=== PATIENT | male | born 1950 | race Two or more races ===

== ENCOUNTER → 2020-06-23 14:22 | Outpatient (BNVA) | payer OTHER, SELFPAY | PROVIDERS: PCP Internal Medicine; Visit Provider Internal Medicine | DX: Z13.89 Encounter for screening for other disorder (principal) | CPT/HCPCS: Q3014 ==

== ENCOUNTER → 2020-07-05 15:33 | Outpatient (BNVA) | payer MEDICARE, SELFPAY | PROVIDERS: PCP Internal Medicine; Visit Provider Internal Medicine | DX: Z13.89 Encounter for screening for other disorder (principal) | CPT/HCPCS: Q3014 ==

== ENCOUNTER 2020-07-28 13:45 | Outpatient (REF) | payer MEDICARE, SELFPAY ==
--- NOTE | ~2020-07-28 | XR_ITS ---
EXAMINATION: XR CHEST CLINICAL INFORMATION: Cough. COMPARISON: Chest 03/19/2018 TECHNIQUE: 2 views of the chest were obtained. FINDINGS: The lungs are hypoexpanded with patchy opacities in both lower lobes with prominent reticular interstitial changes likely chronic changes since 2018. Superimposed underlying infiltrate in both lower lungs cannot be excluded. The upper lungs are clear. Heart size and pulmonary vascularity is normal. No gross bony abnormality seen. XR/XR chest 2V IMPRESSION: Patchy bilateral lower lobe opacities likely infiltrate superimposed on chronic reticular interstitial changes. The lungs are hypoexpanded.
== END 2020-07-28 13:46 | disposition home or self-care (01) ==
LOC: HO.XRAY 13:45
PROVIDERS: PCP Internal Medicine; Visit Provider Internal Medicine
DX: B94.8 Sequelae of other specified infectious and parasitic diseases (principal); R05 Cough; J44.9 Chronic obstructive pulmonary disease, unspecified; J30.9 Allergic rhinitis, unspecified; Z79.899 Other long term (current) drug therapy
CPT/HCPCS: 71046; 99212

== ENCOUNTER 2020-09-28 14:10 | Outpatient (REF) | payer MEDICARE, SELFPAY ==
--- NOTE | ~2020-09-28 | XR_ITS ---
EXAMINATION: XR CHEST CLINICAL INFORMATION: Sequela of infection COMPARISON: 07/28/2020 and 03/19/2018 TECHNIQUE: PA and lateral FINDINGS: Compared to study of 07/28/2020 there has been some improvement in bilateral lower lobe and lingula disease. No new confluent region of disease is appreciated. No pneumothorax or pleural effusion. There is still noted to be diffuse interstitial scarring compared to study of 03/19/2018. Heart normal size. No evidence of pulmonary edema. XR/XR chest 2V IMPRESSION: Improvement since study of 07/28/2020 but with bilateral regions of scarring being present.
== END 2020-09-28 14:11 | disposition home or self-care (01) ==
LOC: HO.XRAY 14:10
PROVIDERS: PCP Internal Medicine; Visit Provider Internal Medicine
DX: R05 Cough (principal); B94.8 Sequelae of other specified infectious and parasitic diseases; J30.9 Allergic rhinitis, unspecified; J44.9 Chronic obstructive pulmonary disease, unspecified; Z88.6 Allergy status to analgesic agent; Z88.5 Allergy status to narcotic agent; Z88.0 Allergy status to penicillin; Z79.899 Other long term (current) drug therapy
CPT/HCPCS: 71046; 99212

== ENCOUNTER → 2020-10-27 13:57 | Outpatient (BNVA) | payer MEDICARE, SELFPAY | PROVIDERS: PCP Internal Medicine; Visit Provider Internal Medicine | DX: B94.8 Sequelae of other specified infectious and parasitic diseases (principal); R05 Cough; J30.9 Allergic rhinitis, unspecified; J44.9 Chronic obstructive pulmonary disease, unspecified | CPT/HCPCS: 99212 ==

== ENCOUNTER 2021-01-18 10:45 | Outpatient (REF) | payer MEDICARE, SELFPAY ==
[2021-01-18 12:50] LABS: PSA,Total (Free>4and<10) 5.11 ng/mL (0.00-4.00)
[2021-01-22 14:55] LABS: Free Prostate Spec Ag 0.6 ng/mL; Percent Free Prostate Spec Ag 14 % (calc) (>25); Prostate Specific Ag Total 4.3 ng/mL (< OR = 4.0)
== END 2021-01-18 10:46 | disposition home or self-care (01) ==
LOC: HO.LAB 10:45
PROVIDERS: PCP Internal Medicine; Visit Provider Urology
DX: Z12.5 Encounter for screening for malignant neoplasm of prostate (principal); N13.8 Other obstructive and reflux uropathy; N40.1 Benign prostatic hyperplasia with lower urinary tract symptoms
CPT/HCPCS: 36415; 84153; 84154

== ENCOUNTER → 2021-02-23 13:27 | Outpatient (BNVA) | payer MEDICARE, SELFPAY | PROVIDERS: PCP Internal Medicine; Visit Provider Internal Medicine | DX: J30.9 Allergic rhinitis, unspecified (principal); J44.9 Chronic obstructive pulmonary disease, unspecified; R05.9 Cough, unspecified | CPT/HCPCS: 99212 ==

== ENCOUNTER 2021-04-05 16:39 | Outpatient (REF) | payer MEDICARE, SELFPAY ==
[2021-04-05 18:34] LABS: Influenza A PCR NEGATIVE (Negative); Influenza B PCR NEGATIVE (Negative); Resp Syncy Virus RNA Qual PCR NEGATIVE (Negative); SARS COV2 PCR INHOUSE NEGATIVE (Negative)
== END 2021-04-05 16:40 | disposition home or self-care (01) ==
LOC: HO.LNP 16:39
PROVIDERS: Visit Provider Physician Assistant Medical
DX: Z20.822 Contact with and (suspected) exposure to COVID-19 (principal); J06.9 Acute upper respiratory infection, unspecified
CPT/HCPCS: 0241U

== ENCOUNTER 2021-04-28 10:55 | Outpatient (REF) | payer MEDICARE, SELFPAY ==
--- NOTE | ~2021-04-28 | XR_ITS ---
EXAMINATION: XR CHEST CLINICAL INFORMATION: COPD COMPARISON: Previous chest x-ray September 2020 TECHNIQUE: 2 views of the chest were obtained. FINDINGS: The cardiac and mediastinal contours are stable. The lungs do not appear hyperinflated and the lung volumes may be low. There are residual increased linear markings seen, right greater than left, probably representing postinfectious or inflammatory scarring. This appears improved compared to most recent exam September 2020. There is no pleural effusion or pneumothorax. There is slight elevation of the right hemidiaphragm. Bony structures are unremarkable. XR/XR chest 2V IMPRESSION: Continued interval improvement in increased linear markings probably representing postinfectious or inflammatory scarring, right greater than left. The lungs do not appear hyperinflated and may be low.
== END 2021-04-28 10:56 | disposition home or self-care (01) ==
LOC: HO.XRAY 10:55
PROVIDERS: PCP Internal Medicine; Visit Provider Internal Medicine
DX: J44.1 Chronic obstructive pulmonary disease with (acute) exacerbation (principal); B94.8 Sequelae of other specified infectious and parasitic diseases; J30.9 Allergic rhinitis, unspecified; Z79.899 Other long term (current) drug therapy
CPT/HCPCS: 71046; 99212

== ENCOUNTER → 2021-06-07 14:48 | Outpatient (BNVA) | payer MEDICARE, SELFPAY | PROVIDERS: PCP Internal Medicine; Visit Provider Internal Medicine | DX: J44.9 Chronic obstructive pulmonary disease, unspecified (principal); J30.9 Allergic rhinitis, unspecified; R05.9 Cough, unspecified; B94.8 Sequelae of other specified infectious and parasitic diseases | CPT/HCPCS: 99212 ==

== ENCOUNTER → 2021-08-09 11:12 | Outpatient (BNVA) | payer MEDICARE, SELFPAY | PROVIDERS: PCP Internal Medicine; Visit Provider Internal Medicine | DX: J44.1 Chronic obstructive pulmonary disease with (acute) exacerbation (principal); J30.9 Allergic rhinitis, unspecified; B94.8 Sequelae of other specified infectious and parasitic diseases | CPT/HCPCS: 99212 ==

== ENCOUNTER → 2021-11-07 14:22 | Outpatient (BNVA) | payer OTHER, SELFPAY | PROVIDERS: PCP Internal Medicine; Visit Provider Internal Medicine | DX: J44.9 Chronic obstructive pulmonary disease, unspecified (principal); J30.9 Allergic rhinitis, unspecified; B94.8 Sequelae of other specified infectious and parasitic diseases | CPT/HCPCS: 99212 ==

== ENCOUNTER → 2022-01-12 11:15 | Outpatient (BNVA) | payer OTHER, SELFPAY | PROVIDERS: PCP Physician Assistant Medical; Visit Provider Internal Medicine | DX: J44.1 Chronic obstructive pulmonary disease with (acute) exacerbation (principal); J30.9 Allergic rhinitis, unspecified; Z79.899 Other long term (current) drug therapy | CPT/HCPCS: 99212 ==

== ENCOUNTER → 2022-03-09 09:37 | Outpatient (BNVA) | payer OTHER, SELFPAY | PROVIDERS: PCP Physician Assistant Medical; Visit Provider Internal Medicine | DX: J44.1 Chronic obstructive pulmonary disease with (acute) exacerbation (principal); J30.9 Allergic rhinitis, unspecified | CPT/HCPCS: 99212 ==

== ENCOUNTER → 2022-05-10 12:57 | Outpatient (BNVA) | payer OTHER, SELFPAY | PROVIDERS: PCP Physician Assistant Medical; Visit Provider Internal Medicine | DX: J44.9 Chronic obstructive pulmonary disease, unspecified (principal); J30.9 Allergic rhinitis, unspecified | CPT/HCPCS: 99212 ==

== ENCOUNTER → 2022-08-09 13:58 | Outpatient (BNVA) | payer OTHER, SELFPAY | PROVIDERS: PCP Physician Assistant Medical; Visit Provider Internal Medicine | DX: J44.1 Chronic obstructive pulmonary disease with (acute) exacerbation (principal); R05.9 Cough, unspecified; J30.9 Allergic rhinitis, unspecified; C61 Malignant neoplasm of prostate; Z79.52 Long term (current) use of systemic steroids | CPT/HCPCS: 99212 ==

== ENCOUNTER 2022-08-27 13:51 | Emergency (ER) | payer OTHER, SELFPAY ==
--- NOTE | ~2022-08-27 | XR_ITS ---
EXAMINATION: XR CHEST CLINICAL INFORMATION: Cough and shortness of breath COMPARISON: Chest x-ray 04/28/2021 TECHNIQUE: 2 views of the chest were obtained. FINDINGS: The lungs are well-expanded and clear of acute pneumonic process. There is persistent soft tissue density right midlung unchanged since 21 question scarring. The heart size and progress clarities normal. No gross bony abnormality seen. XR/XR chest 2V IMPRESSION: 1. No acute cardiopulmonary process seen. 2. Right midlung soft tissue density is unchanged since 2020 question scarring. .
[2022-08-27 13:55] VITALS: BP 144/90; PULSE 101; RESP 18; TEMP 36.8; O2SAT 97; BMI 25.4
--- NOTE | 2022-08-27 13:56 | ED.CHESTPAIN ---
HPI - Chest Pain General Chief Complaint: Chest Pain <MIKEL Cleveland - Last Filed: 08/27/22 14:01> Stated Complaint: chest pains/ 4x days coughing <MIKEL Cleveland - Last Filed: 08/27/22 14:01> Time Seen by Provider: 08/27/22 18:33 <MIKEL Cleveland - Last Filed: 08/27/22 14:01> Source: patient, family, RN notes reviewed and old records reviewed <Isaak Durant - Last Filed: 08/27/22 18:48> Mode of arrival: ambulatory <Isaak Durant - Last Filed: 08/27/22 18:48> Limitations: no limitations <Isaak Durant - Last Filed: 08/27/22 18:48> History of Present Illness HPI narrative: 71-year-old male with past medical history significant for COPD, prostate cancer presents for evaluation of cough. Patient reports has been coughing for last 4 days with associated left-sided chest pain Denies any fevers, chills or shortness of breath. Patient reports his cough isn't productive of green sputum He has been using his albuterol machine at home without any improvement in his symptoms. Patient reports that he is currently undergoing radiation therapy for his prostate as he was recently diagnosed with stage I prostate cancer Of note, the patient's was also seen in the ER for similar symptoms <Isaak Durant - Last Filed: 08/27/22 18:48> Related Data Home Medications: Home Medications Medication Instructions Recorded Confirmed atorvastatin 20 mg tablet 20 mg PO DAILY 02/23/21 01/12/22 omeprazole 20 mg capsule,delayed 20 mg PO DAILY 02/23/21 01/12/22 release diltiazem HCl 120 mg 120 mg PO DAILY 08/09/21 01/12/22 capsule,extended release 24 hr prednisone 5 mg tablet 5 mg PO DAILY recurrent 05/10/22 excarbation of copd Previous Rx's Medication Instructions Recorded albuterol sulfate 2.5 mg/3 mL 2.5 mg (3 mL) inhalation Q4-6H PRN 04/28/21 (0.083 %) solution for nebulization shortness of breath or wheezing #180 mL fluticasone 250 mcg-salmeterol 50 1 inh inhalation BID 30 days #60 ea 01/12/22 mcg/dose blistr powdr for inhalation (Wixela Inhub) azithromycin 250 mg tablet 250 mg PO 3XW 30 days #13 tabs 03/09/22 albuterol sulfate 90 mcg/actuation 2 puff inhalation Q4-6H PRN 05/10/22 aerosol inhaler shortness of breath or wheezing 30 days #8.5 grams montelukast 10 mg tablet 10 mg PO BEDTIME #90 tabs 07/20/22 benzonatate 100 mg capsule 100 mg PO TID PRN cough #20 caps 08/27/22 levocetirizine 5 mg tablet 5 mg PO DAILY #14 tabs 08/27/22 <MIKEL Cleveland - Last Filed: 08/27/22 14:01> Allergies/Adverse Reactions: Allergies Allergy/AdvReac Type Severity Reaction Status Date / Time acetaminophen [Percocet] Allergy Unknown Unknown Verified 08/09/22 14:16 codeine [Tylenol-Codeine] Allergy Unknown Unknown Verified 08/09/22 14:16 oxycodone [Percocet] Allergy Unknown Unknown Verified 08/09/22 14:16 penicillin V Allergy Unknown Unknown Verified 08/09/22 14:16 <MIKEL Cleveland - Last Filed: 08/27/22 14:01> Review of Systems Constitutional: Constitutional: Reports as per HPI, Denies chills, Denies fatigue, Denies fever(s) and Denies headache(s) <Isaak Durant - Last Filed: 08/27/22 18:48> ENT: Denies headache(s) <Isaak Durant - Last Filed: 08/27/22 18:48> Cardiovascular: Cardiovascular: Denies dyspnea <Isaak Durant - Last Filed: 08/27/22 18:48> Respiratory: Respiratory: Reports cough, Reports excessive phlegm production, Reports pain with cough and Denies dyspnea <Isaak Durant - Last Filed: 08/27/22 18:48> Gastrointestinal: Gastrointestinal: Denies abdominal pain, Denies constipation and Denies vomiting <Isaak Durant - Last Filed: 08/27/22 18:48> Genitourinary: Genitourinary: Denies difficulty urinating and Denies dysuria <Isaak Durant - Last Filed: 08/27/22 18:48> Neurologic: Denies headache(s) and Denies focal weakness <Isaak Durant - Last Filed: 08/27/22 18:48> Endocrine: Endocrine: Denies fatigue <Isaak Durant - Last Filed: 08/27/22 18:48> PMFSH Past Medical History Medical History: Medical History Allergic rhinitis COPD (chronic obstructive pulmonary disease) COPD exacerbation Cough COVID-19 [id number] condition <MIKEL Cleveland - Last Filed: 08/27/22 14:01> Social History Social History: Social History Patient Tobacco Use Status: Never used Tobacco <MIKEL Cleveland - Last Filed: 08/27/22 14:01> Physical Exam Vital Signs: Vital Signs: Last Vital Signs Temp 98.2 F 08/27/22 13:55 Pulse 101 H 08/27/22 13:55 Resp 18 08/27/22 13:55 BP 144/90 H 08/27/22 13:55 Pulse Ox 97 08/27/22 13:55 O2 Del Method Room Air 08/27/22 13:55 BMI result Body Mass Index 25.4 <MIKEL Cleveland - Last Filed: 08/27/22 14:01> Vital Signs: Last Vital Signs Temp 98.2 F 08/27/22 13:55 Pulse 101 H 08/27/22 13:55 Resp 18 08/27/22 13:55 BP 144/90 H 08/27/22 13:55 Pulse Ox 97 08/27/22 13:55 O2 Del Method Room Air 08/27/22 13:55 BMI result Body Mass Index 25.4 <Isaak Durant - Last Filed: 08/27/22 18:48> Const: General: healthy appearing, comfortable, no acute distress, alert and awake <Isaak Durant - Last Filed: 08/27/22 18:48> Nutritional Appearance: well nourished <Isaak Durant - Last Filed: 08/27/22 18:48> Orientation/consciousness: patient oriented x3 < Last Filed: 08/27/22 18:48> HEENT: Head: Yes normocephalic and Yes atraumatic < Last Filed: 08/27/22 18:48> Throat: Yes posterior oropharynx normal < Last Filed: 08/27/22 18:48> Eyes: Eyelids: Yes eyelids normal < Last Filed: 08/27/22 18:48> Conjunctivae: conjunctivae normal < Last Filed: 08/27/22 18:48> Sclerae: sclerae normal < Last Filed: 08/27/22 18:48> Corneas: corneas normal < Last Filed: 08/27/22 18:48> Pupils: Equal, round and reactive pupils present < Last Filed: 08/27/22 18:48> EOM: EOMs intact bilaterally < Last Filed: 08/27/22 18:48> Neck: Neck: Yes full ROM < Last Filed: 08/27/22 18:48> Resp: Effort & Inspection: normal respiratory effort, able to speak in complete sentences, no audible wheezes and not labored < Last Filed: 08/27/22 18:48> Auscultation: clear to auscultation bilaterally < Last Filed: 08/27/22 18:48> Cardio: Other: No lower extremity edema < Last Filed: 08/27/22 18:48> Rate: regular rate < Last Filed: 08/27/22 18:48> Rhythm: regular rhythm < Last Filed: 08/27/22 18:48> GI: Inspection: No distended < Last Filed: 08/27/22 18:48> Palpation (GI): Soft to palpation, not firm, nontender, no guarding and not rigid < Last Filed: 08/27/22 18:48> Auscultation: normoactive bowel sounds <Isaak Durant - Last Filed: 08/27/22 18:48> Skin: General skin exam: no rashes or lesions noted and elasticity normal <Isaak Durant - Last Filed: 08/27/22 18:48> Neuro: General: patient oriented x3 <Isaak Durant - Last Filed: 08/27/22 18:48> Cranial nerves: Yes CN's II-XII intact bilaterally, Yes Equal, round and reactive pupils present and Yes Bilaterally intact EOM present <Isaak Durant - Last Filed: 08/27/22 18:48> Cognition (Neuro): normal cognition <Isaak Durant - Last Filed: 08/27/22 18:48> Course Course Course Narrative: RME-14PM - 71yoM Stage 1 prostate cancer on radiation no METs per patient, COPD, allergic rhinitis, history of COVID who is presenting to the ER with complaints of a cough that has been present since Sunday then midsternal chest pain that started on Sunday after him coughing so much on Sunday. Reports that he started with sputum production today with a thick green malodorous sputum. has similar symptoms and is also being seen today as well. Daughter at bedside. Patient is [place]-speaking dollar is translating. He denies recent travel, fevers, dyspnea on exertion orthopnea, leg swelling, nausea/vomiting, abdominal pain, calf tenderness, bloody sputum production or any other symptoms complaints or concerns at this time. Plan: Labs, UA, chest x-ray, EKG, COVID/RSV/flu swab were at this time. Patient to be sent back to the waiting room to be evaluated in the ED. <MIKEL Cleveland - Last Filed: 08/27/22 14:01> Medical Decision Making Medical Decision Making MDM Narrative: 71-year-old male with past medical history significant for COPD presents for evaluation of cough. Patient's EKG is a sinus rhythm rate of 88 beats per minute. His labs are without significant abnormality. Chest x-ray shows possible right mid lung scarring but otherwise no focal infiltrates. The patient's symptoms are most likely related to seasonal allergies versus viral syndrome. As his is here with similar symptoms. His vital signs are stable. We will treat his cough with benzonatate Perles and allergy medication. The patient has no wheezing on exam, doubt this related to his COPD history <Isaak Durant - Last Filed: 08/27/22 18:48> Differential Diagnosis Cough Allergies Bronchitis Pneumonia COPD exacerbation <Isaak Durant - Last Filed: 08/27/22 18:48> Lab Data MDM Lab Attestation statement: I reviewed the patient's lab results. <Isaak Durant - Last Filed: 08/27/22 18:48> Result Diagrams: 08/27/22 15:48 08/27/22 15:48 <MIKEL Cleveland - Last Filed: 08/27/22 14:01> Labs: Lab Results 08/27/22 08/27/22 08/27/22 Range/Units 15:48 15:48 15:48 WBC 10.5 (4.8-10.8) X10*3/uL RBC 4.96 (4.60-5.80) X10*6/uL Hgb 14.6 (14.0-18.0) g/dl Hct 44.5 (42.0-52.0) % MCV 89.7 (80.0-98.0) fL MCH 29.4 (27.0-33.0) pg MCHC 32.8 (31.0-36.0) g/dl RDW 11.9 (11.0-16.0) % Plt Count 276 (160-400) X10*3/uL MPV 8.8 L (9.4-12.4) fL Immature Gran % (Auto) 0.3 (0.0-0.4) % Neut % (Auto) 77.7 H (45-73) % Lymph % (Auto) 10.3 L (20-40) % Divide % (Auto) 9.5 (2-11) % Eos % (Auto) 1.7 (0-4) % Baso % (Auto) 0.5 (0-2) % Lymph # (Auto) 1.1 L (1.2-4.9) X10*3/uL Divide # (Auto) 1.0 (0.1-1.2) X10*3/uL Eos # (Auto) 0.2 (0.0-0.4) X10*3/uL Baso # (Auto) 0.1 (0.0-0.2) X10*3/uL Abs Immat Gran (auto) 0.03 (0.00-0.03) X10*3/uL Absolute Neuts (auto) 8.2 (2.0-8.3) x10*3/uL Absolute Nucleated RBC 0.000 (0.0-0.012) X10*3/uL Nucleated RBC % (auto) 0.0 (0.0-0.2) /100WBC PT 12.8 (10.0-13.1) SEC INR 1.1 (0.9-1.1) Sodium 141 (135-145) mmol/L Potassium 4.4 (3.3-5.1) mmol/L Chloride 107 (96-108) mmol/L Carbon Dioxide 26 (22-29) mmol/L Anion Gap 12 (12-20) BUN 11 (9-16) mg/dL Creatinine 1.04 (0.5-1.4) mg/dL Estim Creat Clear Calc 47.4 Estimated GFR > 60 Random Glucose 91 (60-115) mg/dL Calcium 8.8 (8.4-10.2) mg/dL Magnesium 1.8 (1.6-2.6) mg/dL Total Bilirubin 1.0 (0.0-1.0) mg/dL AST 13 (5-37) U/L ALT 11 (0-40) U/L Alkaline Phosphatase 80 (39-117) U/L Troponin I High Sens (<3.5-35.0) ng/L Total Protein 6.7 (6.5-8.0) g/dL Albumin 4.0 (3.5-5.0) g/dL Influenza Type A (PCR) (Negative) Influenza Type B (PCR) (Negative) RSV RNA Qual (PCR) (Negative) SARS-CoV-2 RNA (RT-PCR) (Negative) 08/27/22 08/27/22 Range/Units 15:48 15:48 WBC (4.8-10.8) X10*3/uL RBC (4.60-5.80) X10*6/uL Hgb (14.0-18.0) g/dl Hct (42.0-52.0) % MCV (80.0-98.0) fL MCH (27.0-33.0) pg MCHC (31.0-36.0) g/dl RDW (11.0-16.0) % Plt Count (160-400) X10*3/uL MPV (9.4-12.4) fL Immature Gran % (Auto) (0.0-0.4) % Neut % (Auto) (45-73) % Lymph % (Auto) (20-40) % Divide % (Auto) (2-11) % Eos % (Auto) (0-4) % Baso % (Auto) (0-2) % Lymph # (Auto) (1.2-4.9) X10*3/uL Divide # (Auto) (0.1-1.2) X10*3/uL Eos # (Auto) (0.0-0.4) X10*3/uL Baso # (Auto) (0.0-0.2) X10*3/uL Abs Immat Gran (auto) (0.00-0.03) X10*3/uL Absolute Neuts (auto) (2.0-8.3) x10*3/uL Absolute Nucleated RBC (0.0-0.012) X10*3/uL Nucleated RBC % (auto) (0.0-0.2) /100WBC PT (10.0-13.1) SEC INR (0.9-1.1) Sodium (135-145) mmol/L Potassium (3.3-5.1) mmol/L Chloride (96-108) mmol/L Carbon Dioxide (22-29) mmol/L Anion Gap (12-20) BUN (9-16) mg/dL Creatinine (0.5-1.4) mg/dL Estim Creat Clear Calc Estimated GFR Random Glucose (60-115) mg/dL Calcium (8.4-10.2) mg/dL Magnesium (1.6-2.6) mg/dL Total Bilirubin (0.0-1.0) mg/dL AST (5-37) U/L ALT (0-40) U/L Alkaline Phosphatase (39-117) U/L Troponin I High Sens 2.7 (<3.5-35.0) ng/L Total Protein (6.5-8.0) g/dL Albumin (3.5-5.0) g/dL Influenza Type A (PCR) NEGATIVE (Negative) Influenza Type B (PCR) NEGATIVE (Negative) RSV RNA Qual (PCR) NEGATIVE (Negative) SARS-CoV-2 RNA (RT-PCR) NEGATIVE (Negative) <MIKEL Cleveland - Last Filed: 08/27/22 14:01> Lab Results 08/27/22 08/27/22 08/27/22 Range/Units 15:48 15:48 15:48 WBC 10.5 (4.8-10.8) X10*3/uL RBC 4.96 (4.60-5.80) X10*6/uL Hgb 14.6 (14.0-18.0) g/dl Hct 44.5 (42.0-52.0) % MCV 89.7 (80.0-98.0) fL MCH 29.4 (27.0-33.0) pg MCHC 32.8 (31.0-36.0) g/dl RDW 11.9 (11.0-16.0) % Plt Count 276 (160-400) X10*3/uL MPV 8.8 L (9.4-12.4) fL Immature Gran % (Auto) 0.3 (0.0-0.4) % Neut % (Auto) 77.7 H (45-73) % Lymph % (Auto) 10.3 L (20-40) % Divide % (Auto) 9.5 (2-11) % Eos % (Auto) 1.7 (0-4) % Baso % (Auto) 0.5 (0-2) % Lymph # (Auto) 1.1 L (1.2-4.9) X10*3/uL Divide # (Auto) 1.0 (0.1-1.2) X10*3/uL Eos # (Auto) 0.2 (0.0-0.4) X10*3/uL Baso # (Auto) 0.1 (0.0-0.2) X10*3/uL Abs Immat Gran (auto) 0.03 (0.00-0.03) X10*3/uL Absolute Neuts (auto) 8.2 (2.0-8.3) x10*3/uL Absolute Nucleated RBC 0.000 (0.0-0.012) X10*3/uL Nucleated RBC % (auto) 0.0 (0.0-0.2) /100WBC PT 12.8 (10.0-13.1) SEC INR 1.1 (0.9-1.1) Sodium 141 (135-145) mmol/L Potassium 4.4 (3.3-5.1) mmol/L Chloride 107 (96-108) mmol/L Carbon Dioxide 26 (22-29) mmol/L Anion Gap 12 (12-20) BUN 11 (9-16) mg/dL Creatinine 1.04 (0.5-1.4) mg/dL Estim Creat Clear Calc 47.4 Estimated GFR > 60 Random Glucose 91 (60-115) mg/dL Calcium 8.8 (8.4-10.2) mg/dL Magnesium 1.8 (1.6-2.6) mg/dL Total Bilirubin 1.0 (0.0-1.0) mg/dL AST 13 (5-37) U/L ALT 11 (0-40) U/L Alkaline Phosphatase 80 (39-117) U/L Troponin I High Sens (<3.5-35.0) ng/L Total Protein 6.7 (6.5-8.0) g/dL Albumin 4.0 (3.5-5.0) g/dL Influenza Type A (PCR) (Negative) Influenza Type B (PCR) (Negative) RSV RNA Qual (PCR) (Negative) SARS-CoV-2 RNA (RT-PCR) (Negative) 08/27/22 08/27/22 Range/Units 15:48 15:48 WBC (4.8-10.8) X10*3/uL RBC (4.60-5.80) X10*6/uL Hgb (14.0-18.0) g/dl Hct (42.0-52.0) % MCV (80.0-98.0) fL MCH (27.0-33.0) pg MCHC (31.0-36.0) g/dl RDW (11.0-16.0) % Plt Count (160-400) X10*3/uL MPV (9.4-12.4) fL Immature Gran % (Auto) (0.0-0.4) % Neut % (Auto) (45-73) % Lymph % (Auto) (20-40) % Divide % (Auto) (2-11) % Eos % (Auto) (0-4) % Baso % (Auto) (0-2) % Lymph # (Auto) (1.2-4.9) X10*3/uL Divide # (Auto) (0.1-1.2) X10*3/uL Eos # (Auto) (0.0-0.4) X10*3/uL Baso # (Auto) (0.0-0.2) X10*3/uL Abs Immat Gran (auto) (0.00-0.03) X10*3/uL Absolute Neuts (auto) (2.0-8.3) x10*3/uL Absolute Nucleated RBC (0.0-0.012) X10*3/uL Nucleated RBC % (auto) (0.0-0.2) /100WBC PT (10.0-13.1) SEC INR (0.9-1.1) Sodium (135-145) mmol/L Potassium (3.3-5.1) mmol/L Chloride (96-108) mmol/L Carbon Dioxide (22-29) mmol/L Anion Gap (12-20) BUN (9-16) mg/dL Creatinine (0.5-1.4) mg/dL Estim Creat Clear Calc Estimated GFR Random Glucose (60-115) mg/dL Calcium (8.4-10.2) mg/dL Magnesium (1.6-2.6) mg/dL Total Bilirubin (0.0-1.0) mg/dL AST (5-37) U/L ALT (0-40) U/L Alkaline Phosphatase (39-117) U/L Troponin I High Sens 2.7 (<3.5-35.0) ng/L Total Protein (6.5-8.0) g/dL Albumin (3.5-5.0) g/dL Influenza Type A (PCR) NEGATIVE (Negative) Influenza Type B (PCR) NEGATIVE (Negative) RSV RNA Qual (PCR) NEGATIVE (Negative) SARS-CoV-2 RNA (RT-PCR) NEGATIVE (Negative) <Isaak Durant - Last Filed: 08/27/22 18:48> Independent Interpretation I performed an independent interpretation of an: EKG (Sinus rhythm rate of 88 beats per minute.) and Plain X-Ray (No infiltrates) <Isaak Durant - Last Filed: 08/27/22 18:48> Discharge Plan Discharge Clinical Impression: Cough <MIKEL Cleveland - Last Filed: 08/27/22 14:01> Patient Disposition: Home, Self-Care <MIKEL Cleveland Last Filed: 08/27/22 14:01> Instructions: Acute Cough (ED) <MIKEL Cleveland Last Filed: 08/27/22 14:01> Additional Instructions: Keep taking your medications as prescribed. Follow-up with your primary doctor Take benzonatate Perles as needed for coughing Use a daily allergy medication for the next week <MIKEL Cleveland Last Filed: 08/27/22 14:01> Prescriptions: New benzonatate 100 mg capsule 100 mg PO TID PRN (Reason: cough) Qty: 20 0RF levocetirizine 5 mg tablet 5 mg PO DAILY Qty: 14 0RF No Action montelukast 10 mg tablet 10 mg PO BEDTIME Qty: 90 0RF omeprazole 20 mg capsule,delayed release(DR/EC) 20 mg PO DAILY atorvastatin 20 mg tablet 20 mg PO DAILY diltiazem HCl 120 mg capsule,extended release 24hr 120 mg PO DAILY albuterol sulfate 2.5 mg /3 mL (0.083 %) solution for nebulization 2.5 mg inhalation Q4-6H PRN (Reason: shortness of breath or wheezing) Qty: 180 2RF prednisone 5 mg tablet 5 mg PO DAILY albuterol sulfate 90 mcg/actuation HFA aerosol inhaler 2 puff inhalation Q4-6H PRN (Reason: shortness of breath or wheezing) 30 Days Qty: 8.5 3RF fluticasone propion-salmeterol [Wixela Inhub] 250-50 mcg/dose blister with device 1 inh inhalation BID 30 Days Qty: 60 3RF azithromycin 250 mg tablet 250 mg PO 3XW 30 Days Qty: 13 3RF <MIKEL Cleveland - Last Filed: 08/27/22 14:01>
--- NOTE | 2022-08-27 14:01 | ECG_ITS ---
Test Reason : Cough shortness of breath Blood Pressure : / mmHG Vent. Rate : 088 BPM Atrial Rate : 088 BPM P-R Int : 146 ms QRS Dur : 084 ms QT Int : 354 ms P-R-T Axes : 045 004 000 degrees QTc Int : 428 ms Normal sinus rhythm Normal ECG No previous ECGs available Referred By: Sondra Hansen Electronically Signed By:TERESSA CHUNG
[2022-08-27 15:53] LABS: MANUAL DIFF FLAG NO
[2022-08-27 15:55] LABS: Basophils Absolute Auto 0.1 X10*3/uL (0.0-0.2); Basophils Percent Auto 0.5 % (0-2); Eosinophils Absolute Auto 0.2 X10*3/uL (0.0-0.4); Eosinophils Percent Auto 1.7 % (0-4); Hematocrit 44.5 % (42.0-52.0); Hemoglobin 14.6 g/dl (14.0-18.0); Imm Gran Abs Auto 0.03 X10*3/uL (0.00-0.03); Imm Gran Pct Auto 0.3 % (0.0-0.4); Lymphocytes Absolute Auto 1.1 X10*3/uL (1.2-4.9); Lymphocytes Percent Auto 10.3 % (20-40); Mean Corpuscular HGB Conc 32.8 g/dl (31.0-36.0); Mean Corpuscular Hemoglobin 29.4 pg (27.0-33.0); Mean Corpuscular Volume 89.7 fL (80.0-98.0); Mean Platelet Volume 8.8 fL (9.4-12.4); Monocytes Percent Auto 9.5 % (2-11); Neutrophils Absolute Auto 8.2 x10*3/uL (2.0-8.3); Neutrophils Percent Auto 77.7 % (45-73); Platelet Count 276 X10*3/uL (160-400); Red Blood Count 4.96 X10*6/uL (4.60-5.80); Red Cell Distribution Width 11.9 % (11.0-16.0); White Blood Count 10.5 X10*3/uL (4.8-10.8)
[2022-08-27 16:02] LABS: INTERNATIONAL NORM RATIO 1.1 (0.9-1.1); Prothrombin Time 12.8 SEC (10.0-13.1)
[2022-08-27 16:11] LABS: Alanine Aminotransferase 11 U/L (0-40); Alkaline Phosphatase 80 U/L (39-117); Anion Gap 12 (12-20); Aspartate Amino Transferase 13 U/L (5-37); Blood Urea Nitrogen 11 mg/dL (9-16); Calcium 8.8 mg/dL (8.4-10.2); Carbon Dioxide 26 mmol/L (22-29); Chloride 107 mmol/L (96-108); Creatinine Clr Calc Pharmacy 47.4; Estimated Glomerular Filt Rate > 60; Glucose Random 91 mg/dL (60-115); Magnesium 1.8 mg/dL (1.6-2.6); Potassium 4.4 mmol/L (3.3-5.1); Sodium 141 mmol/L (135-145); Total Protein 6.7 g/dL (6.5-8.0)
[2022-08-27 16:18] LABS: Troponin-I High Sensitivity 2.7 ng/L (<3.5-35.0)
[2022-08-27 16:34] LABS: Influenza A PCR NEGATIVE (Negative); Influenza B PCR NEGATIVE (Negative); Resp Syncy Virus RNA Qual PCR NEGATIVE (Negative); SARS COV2 PCR INHOUSE NEGATIVE (Negative)
[2022-08-27 18:43] VITALS: BP 130/81; PULSE 95; RESP 16; TEMP 36.6; O2SAT 96
--- NOTE | 2022-08-27 19:09 | PC.NURSE ---
Discharge instructions reviewed with pt. Pt verbalizes understanding. Ambulatory at discharge with steady gait.
== END 2022-08-27 19:10 | disposition home or self-care (01) ==
PROVIDERS: Physician Assistant Medical; Emergency Provider Internal Medicine; PCP Physician Assistant Medical
DX: R05.9 Cough, unspecified (principal); R06.02 Shortness of breath; Z20.822 Contact with and (suspected) exposure to COVID-19; Z20.828 Contact with and (suspected) exposure to other viral communicable diseases; Z79.899 Other long term (current) drug therapy
CPT/HCPCS: 0241U; 71046; 80053; 83735; 84484; 85025; 85610; 93005; 99284

== ENCOUNTER → 2022-11-08 08:53 | Outpatient (BNVA) | payer OTHER, SELFPAY | PROVIDERS: PCP Physician Assistant Medical; Visit Provider Nurse Practitioner Family | DX: J44.1 Chronic obstructive pulmonary disease with (acute) exacerbation (principal); R06.00 Dyspnea, unspecified | CPT/HCPCS: 99212 ==

== ENCOUNTER 2022-12-07 13:44 | Outpatient (AMB) | payer OTHER, SELFPAY ==
--- NOTE | 2022-12-07 13:53 | A.OFFVIS_ITS ---
Intake Vital Signs 12/07/22 13:54 Height 5 ft 1 in Weight 145 lb 8.081 oz BMI 27.5 BP 128/70 Blood Pressure Location Lt brachial Position Sitting Pulse 76 Pulse Source Pulse Oximeter Pulse Oximetry (%) 97 Oxygen Delivery Method Room Air Intake Visit Reasons: copd Intake Note: Patient feeling much better. 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 Allergies acetaminophen [Percocet] Allergy (Unknown, Verified 12/07/22 14:05) Unknown codeine [Tylenol-Codeine] Allergy (Unknown, Verified 12/07/22 14:05) Unknown oxycodone [Percocet] Allergy (Unknown, Verified 12/07/22 14:05) Unknown penicillin V Allergy (Unknown, Verified 12/07/22 14:05) Unknown Medication List - Last Reconciled 12/07/22 by Nkechi Hickey MD albuterol sulfate 90 mcg/actuation 2 puffs inhalation Q4-6H PRN 30 days albuterol sulfate 2.5 mg (3 mL) inhalation Q4-6H PRN atorvastatin 20 mg PO DAILY benzonatate 100 mg PO TID PRN diltiazem HCl 120 mg PO DAILY fluticasone propion-salmeterol 250-50 mcg/dose 1 ea PO BID levocetirizine 5 mg PO DAILY montelukast 10 mg PO BEDTIME nebulizers As directed omeprazole 20 mg PO DAILY Do you need a note to return to daycare/school/sports/work: No HPI copd HPI Details 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 ON 11/08 HE WAS SEEN FOR A MILD ACUTE EXACERBATION, AND TREATED WITH A COURSE OF AZITHROMYCIN AND PREDNISONE FOR 5 DAYS. SINCE HE TOOK PREDNISONE FOR 5 DAYS HE IS FEELING MUCH BETTER. 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 FROM THE PAST 8 IS THE WELL NOTED THAT HE RESPONSE TO STEROIDS VERY GOOD. HE HAS ALBUTEROL INHALER WELL THE THE NEBULIZER TO USE IN EMERGENCY, WHICH HE USES ONLY ONCE IN A WHILE. 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 Social History Patient Tobacco Use Status: Never used Tobacco Review of Systems Const All systems reviewed & are unremarkable except as noted in HPI and below Eyes Reports no additional complaints ENT Reports no additional complaints Card Denies chest pain, Denies irregular heart rhythm and Denies leg edema Resp Reports as per HPI, Reports cough and Reports wheezing GI Reports heartburn (Controlled with omeprazole) Reports no additional complaints Musc Reports no additional complaints Skin/Breast Reports system reviewed and no additional complaints, except as documented Neuro Reports no additional complaints Psych Reports no additional complaints Endo Reports no additional complaints Aller/Immun Reports wheezing Physical Exam Vital Signs: Last Vital Signs Pulse 76 12/07/22 13:54 BP 128/70 12/07/22 13:54 Pulse Ox 97 12/07/22 13:54 Oxygen Delivery Method Room Air 12/07/22 13:54 BMI result Body Mass Index 27.5 Const General: comfortable, no acute distress, alert and awake Orientation/consciousness: patient oriented x3 HEENT Head: Yes normal to inspection General nose exam: No nasal polyps present and No nasal discharge present Face and sinus: Yes sinuses nontender Mouth: oropharynx normal Throat: Yes posterior oropharynx normal Eyes General: appearance normal, both eyes and all related structures Neck Neck: Yes normal visual inspection, Yes no lymphadenopathy, Yes trachea midline and Yes no JVD Thyroid: Thyroid normal Chest Chest palpation & inspection: normal inspection of the chest, normal palpation of entire chest wall and no tenderness Resp Other: His chest examination shows increased AP diameter. Percussion note is slightly hyper-resonant. Breath sounds are distant with prolonged expiratory phase. No wheezes or crepitations are heard today. Cardio Palpation: normal PMI Rate: regular rate Rhythm: regular rhythm Heart sounds: no gallops and no murmurs GI Palpation (GI): Soft to palpation, nontender, No hepatosplenomegaly present and no masses Auscultation: normal bowel sounds Back/Spine/Pelvis Thoracic/Lumbar Spine: thoracic and lumbar spine normal to inspection Skin General skin exam: no rashes or lesions noted Neuro General: patient oriented x3 and no focal motor deficits Cranial nerves: Yes CN's II-XII intact bilaterally Extrem General: Yes normal to inspection, Yes no clubbing, cyanosis or edema and Yes no calf tenderness Psych Appearance: grossly normal and well kempt Speech and movement: Normal speech and movement present Assessment & Plan Assessment & Plan (1) COPD (chronic obstructive pulmonary disease): Comment: PATIENT DOES HAVE MODERATELY SEVERE CHRONIC OBSTRUCTIVE PULMONARY DISEASE. HE IS PRONE TO HAVE FREQUENT EXACERBATIONS AND RESPONSE TO ORAL PREDNISONE VERY QUICKLY. TX: CONTINUE ADVAIR 250-51 INHALATION B.I.D. ALBUTEROL HFA 2 PUFFS Q 4-6 HOURS P.R.N. WHEN OUTDOORS, AT HOME HE CAN USE ALBUTEROL SOLUTION IN THE NEBULIZER Q 4-6 HOURS ONLY P.R.N.. HE IS GIVEN A SUPPLY OF PREDNISONE TO KEEP ON HAND, AND USE IN CASE OF ACUTE EXACERBATION, IN ORDER TO AVOID EMERGENCY VISITS OF OR ADMISSIONS. Code(s): J44.9 - Chronic obstructive pulmonary disease, unspecified (2) Allergic rhinitis: Comment: ALLERGIC RHINITIS, CHRONIC, MILD, REMAINS CONTROLLED. TX MONTELUKAST 10 MG DAILY, AND LORATADINE 10 MG ONCE A DAY P.R.N.. Code(s): J30.9 - Allergic rhinitis, unspecified Medications: New prednisone 20 mg PO BID 10 tabs 1RF COPD EXCARBATION 5 days Coding Level of Care Code Est Pt Level 3 (91132) Diagnoses COPD (chronic obstructive pulmonary disease) J44.9 Allergic rhinitis J30.9
[2022-12-07 13:54] VITALS: BP 128/70; PULSE 76; O2SAT 97; BMI 27.5
== END 2022-12-07 14:13 | disposition home or self-care (01) ==
PROVIDERS: PCP Physician Assistant Medical; Visit Provider Internal Medicine
DX: J44.9 Chronic obstructive pulmonary disease, unspecified (principal); J30.9 Allergic rhinitis, unspecified
CPT/HCPCS: 99213

== ENCOUNTER → 2022-12-07 13:44 | Outpatient (BNVA) | payer OTHER, SELFPAY | PROVIDERS: Visit Provider Internal Medicine | DX: J44.9 Chronic obstructive pulmonary disease, unspecified (principal); J30.9 Allergic rhinitis, unspecified | CPT/HCPCS: 99212 ==

== ENCOUNTER 2023-03-20 13:41 | Emergency (ER) | payer OTHER, SELFPAY ==
--- NOTE | ~2023-03-20 | CT_ITS ---
EXAMINATION: CT ABDOMEN AND PELVIS WITHOUT CONTRAST CLINICAL INFORMATION: Right-sided flank and back pain COMPARISON: None available. TECHNIQUE: Multidetector volumetric imaging was performed from the superior aspect of the liver through the pubic symphysis. Sagittal and coronal reformatted images were obtained on the technologist's workstation. This CT examination was performed using dose optimization techniques as appropriate, variously including the following: *Automated exposure control *Adjustment of mA and/or kV according to patient size (this includes techniques or standardized protocols for targeted exams where dose is matched to indication/reason for exam; i.e. extremities or head) *Use of iterative reconstruction technique DLP: 458 mGy-cm FINDINGS: LUNG BASES: Subpleural reticulation and scarring is present along with some traction bronchiectasis. Findings are suggestive of interstitial lung disease. No pleural effusions. No suspicious lung masses. Coronary calcium is present. There is mild gynecomastia. LIVER, GALLBLADDER, AND BILIARY TREE: The liver is normal in size, shape, and attenuation. No focal hepatic lesion or biliary ductal dilatation is present. Status post cholecystectomy. PANCREAS: Unremarkable. SPLEEN: Unremarkable. ADRENAL GLANDS: Unremarkable. KIDNEYS AND URETERS: The kidneys are normal in size, shape, and attenuation. No hydronephrosis, hydroureter, or calculi seen. No perinephric stranding. BLADDER: Unremarkable. GASTROINTESTINAL TRACT: The small and large bowel are unremarkable aside from some scattered colonic diverticula without diverticulitis. The appendix is unremarkable. ABDOMINAL WALL: No significant hernia is appreciated. LYMPH NODES: Normal. VASCULAR: Unremarkable. PELVIC VISCERA: A surgical clip is present in the right lower quadrant. Fiducial markers are seen in the mildly enlarged prostate. Seminal vesicles appear normal. OSSEOUS STRUCTURES: There is a compression fracture of the superior endplate of L3 which appears old. CT/CT abdomen pelvis wo IV con IMPRESSION: 1. A cause for the patient's right-sided flank and back pain has not been found. 2. Cholecystectomy. 3. Colonic diverticulosis without diverticulitis. 4. Fiducial markers in the prostate. 5. Compression fracture superior endplate L3. 6. Other incidental findings as described above including interstitial lung disease, coronary artery disease, mild gynecomastia, cholecystectomy and old L3 compression fracture. Fleischner guidelines were followed.
--- NOTE | ~2023-03-20 | XR_ITS ---
EXAMINATION: XR CHEST CLINICAL INFORMATION: Cough COMPARISON: Chest radiograph 08/27/2022, CT abdomen pelvis 03/20/2023 TECHNIQUE: Frontal view of the chest was obtained. FINDINGS: The heart and pulmonary vessels appear normal. Chronic lung markings consistent with interstitial lung disease are better demonstrated on the CT abdomen performed earlier today. Is no evidence of CHF. No consolidations, pleural effusions or lung masses are seen XR/XR chest 1V IMPRESSION: No acute intrathoracic disease.
[2023-03-20 13:58] VITALS: BP 149/91; BP 178/106; PULSE 110; PULSE 115; RESP 18; TEMP 36.8; O2SAT 97; BMI 28.4
--- NOTE | 2023-03-20 14:14 | ED.GENADULT ---
HPI - General Adult General Chief complaint: Abdominal Pain Stated complaint: R flank pain Time Seen by Provider: 03/20/23 14:06 Source: patient Mode of arrival: ambulatory Limitations: no limitations History of Present Illness HPI narrative: Patient is a 72-year-old female with a PMH of COPD, long COVID, and allergic rhinitis presenting with right sided flank pain/back/pelvic pain x2 days and cough, fatigue, malaise times a week. Patient reports flank pain/pelvic pain/back pain started yesterday after briskly turning, since then has been having constant pain worse with movement better at rest. Tells me it is his lower back and at times he feels like it is his pelvis. Reports he is having difficulties with ambulation. He reports pain is also worse if he coughs. Denies trauma,fever, chills, chest pain, urinary/bowel incontinence/retention, saddle paresthesias, numbness and tingling. Related Data Home Medications Medication Instructions Recorded Confirmed atorvastatin 20 mg tablet 20 mg PO DAILY 02/23/21 11/08/22 omeprazole 20 mg capsule,delayed 20 mg PO DAILY 02/23/21 11/08/22 release diltiazem HCl 120 mg 120 mg PO DAILY 08/09/21 11/08/22 capsule,extended release 24 hr nebulizers 12/07/22 Previous Rx's Medication Instructions Recorded montelukast 10 mg tablet 10 mg PO BEDTIME #90 tabs 07/20/22 benzonatate 100 mg capsule 100 mg PO TID PRN cough #20 caps 08/27/22 levocetirizine 5 mg tablet 5 mg PO DAILY #14 tabs 08/27/22 albuterol sulfate 2.5 mg/3 mL 2.5 mg (3 mL) inhalation Q4-6H PRN 11/08/22 (0.083 %) solution for nebulization shortness of breath or wheezing #180 mL albuterol sulfate 90 mcg/actuation 2 puff inhalation Q4-6H PRN 11/08/22 aerosol inhaler shortness of breath or wheezing 30 days #8.5 grams fluticasone 250 mcg-salmeterol 50 1 ea PO BID #180 ea 11/10/22 mcg/dose blistr powdr for inhalation prednisone 20 mg tablet 20 mg PO BID COPD EXCARBATION 5 12/07/22 days #10 tabs albuterol sulfate 90 mcg/actuation 2 inh inhalation Q4-6H PRN 03/20/23 breath activated powder inhaler shortness of breath or wheezing #1 ea ibuprofen 600 mg tablet 600 mg PO Q8H PRN fever or pain 03/20/23 #30 tabs lidocaine 5 % topical patch 1 patch topical DAILY PRN pain #15 03/20/23 ea prednisone 20 mg tablet 40 mg (2 x 20 mg) PO DAILY 5 days 03/20/23 #10 tabs Allergies Allergy/AdvReac Type Severity Reaction Status Date / Time acetaminophen [Percocet] Allergy Unknown Unknown Verified 12/07/22 14:05 codeine [Tylenol-Codeine] Allergy Unknown Unknown Verified 12/07/22 14:05 oxycodone [Percocet] Allergy Unknown Unknown Verified 12/07/22 14:05 penicillin V Allergy Unknown Unknown Verified 12/07/22 14:05 Review of Systems Review of Systems: Constitutional : No Weight loss, No Fever, No Chills, + Fatigue, + Malaise ENT/Mouth : No sore throat, No Rhinorrhea Eyes: No Eye Pain, No Swelling, No Redness Cardiovascular : No Chest Pain, No SOB, No Dyspnea on Exertion, No Orthopnea, No Edema, No Palpitations Respiratory : + Cough, No Sputum, No Wheezing Gastrointestinal : No Nausea, No Vomiting, No Diarrhea, No Constipation, No abdominal Pain, No Hematochezia, No Melena Genitourinary : No Dysuria, No Urinary Frequency, No Hematuria, Musculoskeletal : No joint pain, + Myalgias, No Joint Swelling, + back pain Skin : No Skin Lesions, No rash Neuro : No Weakness, No Numbness, No Dizziness, No Headache Psych : No Anxiety/Panic, No Depression All other systems reviewed and are negative Yes all other systems are reviewed and are negative [facility] Past Medical History Attestation statement: The following information was validated with the patient. Source: old records reviewed and nursing notes reviewed Medical History Allergic rhinitis COPD (chronic obstructive pulmonary disease) COPD exacerbation Cough COVID-19 [id number] condition Social History Social History Patient Tobacco Use Status: Never used Tobacco Advance Directives: No Advance Directives Information Provided: No Physical Exam ED Vital Signs: Vital Signs - 24 hr 03/20/23 13:58 03/20/23 15:46 Temperature 98.3 F Pulse Rate 110 H 64 Respiratory Rate 18 16 Blood Pressure 149/91 H 158/89 H Pulse Oximetry 97 94 Oxygen Delivery Method Room Air Room Air BMI result Body Mass Index 28.4 vss Appearance: Alert.? Oriented X3.? No acute distress.? Head: Normocephalic, atraumatic, no step-offs or deformities Eyes: Pupils equal, round and reactive to light.?? CVS: Normal heart rate and rhythm.? Pulses normal.? Respiratory: No respiratory distress.? Breath sounds normal.? Abdomen: Soft and nontender.? Skin: Skin warm and dry.? Normal skin color.? Normal skin turgor.? Extremities: No lower extremity edema.? No calf ttp. 5/5 strength to bilateral upper and lower extremities Back: No midline tenderness, no C-spine tenderness, full range of motion, no CVA tenderness bilaterally + discomfort with palpation of right-sided lumbar paraspinous muscles throughout worsen the L4-L5 region. No saddle paresthesias. Normal strength to bilateral lower extremities. Neuro: Oriented X 3.? No motor deficit.? No sensory deficit. CN 2-12 intact Course Reevaluation(s) Reevaluation #1: CBC with slight leukocytosis. Chemistry unremarkable no acute electrolyte abnormalities requiring intervention. UA without infection. COVID negative. CT scan pending, chest x-ray pending Time: 16:07 Reevaluation #2: Delay in obtaining results from imaging secondary to a delay with [facility]. Will continue to monitor Time: 16:09 Reevaluation #3: Sign out to David Gallegos pending CT abd/pelvis Time: 16:53 Additional Reevaluation(s): Patient received in sign-out at change of shift pending CT scan and disposition. Patient's CT scan did not show any acute findings. I discussed all the CT scan results with the patient and answered any and all questions. He reports he feels comfortable going home his daughter can pick him up. However he did request another dose of IV pain medication for the car ride home to assist getting him home. He had previously received fentanyl 50 mcg IV. I did agree to order another dose prior to discharge. And I reviewed the prescriptions that were sent over including albuterol, ibuprofen, prednisone and lidocaine patches. The patient is comfortable with this as well. Medications Administered Discontinued Medications Generic Name Dose Route Start Last Admin Trade Name Bautista PRN Reason Stop Dose Admin Fentanyl 50 mcg 03/20/23 14:19 03/20/23 14:31 Fentanyl Citrate/Pf 100 Mcg/2 Ml Vial IVPUSH 03/20/23 14:20 50 mcg ONCE ONE Administration Protocol Lidocaine 1 patch 03/20/23 14:17 03/20/23 14:32 Lidocaine 4 % Patch Adh..Patch TRANSDERMA 03/20/23 14:18 1 patch ONCE ONE Administration Protocol Medical Decision Making Medical Decision Making [facility] Narrative: 1434 72-year-old male presents for evaluation of right-sided flank/back pain/pelvic pain as well as URI symptoms for the past week. Back pain is atraumatic in nature. No red flag symptoms peer Physical exam with discomfort with palpation of right-sided lumbar paraspinous muscles throughout worsen the L4-L5 region. No saddle paresthesias. Normal strength to bilateral lower extremities. History and physical exam concerning for sprain or strain vs sciatica vs lumbar paraspinous tenderness with possible viral illness. Unlikely cauda equina, epidural abscess, cord compression, myelopathy. Unlikely pneumonia, pulmonary embolism, acute respiratory distress, ACS, dissection Plan chest x-ray, viral test, basic labs, will give Lidoderm patch and fentanyl for pain as patient does not tolerate opiates secondary to significant tachycardia. Differential Diagnosis Differential Diagnoses: The differential diagnosis associated with the presentation includes History and physical exam concerning for sprain or strain vs sciatica vs lumbar paraspinous tenderness with possible viral illness. Unlikely cauda equina, epidural abscess, cord compression, myelopathy. Unlikely pneumonia, pulmonary embolism, acute respiratory distress, ACS , dissection Admission/Observation Consideration of admission/observation: Escalation of care including admission/observation considered unlikely Lab Data [facility] Lab Attestation statement: I reviewed the patient's lab results. 03/20/23 14:22 03/20/23 14:22 Labs: Lab Results 03/20/23 03/20/23 03/20/23 Range/Units 14:22 14:42 15:50 WBC 11.1 H (4.8-10.8) X10*3/uL RBC 4.77 (4.60-5.80) X10*6/uL Hgb 14.8 (14.0-18.0) g/dl Hct 43.0 (42.0-52.0) % MCV 90.1 (80.0-98.0) fL MCH 31.0 (27.0-33.0) pg MCHC 34.4 (31.0-36.0) g/dl RDW 12.3 (11.0-16.0) % Plt Count 234 (160-400) X10*3/uL MPV 9.3 L (9.4-12.4) fL Immature Gran % (Auto) 1.3 H (0.0-0.4) % Neut % (Auto) 76.3 H (45-73) % Lymph % (Auto) 10.5 L (20-40) % [place] % (Auto) 11.4 H (2-11) % Eos % (Auto) 0.1 (0-4) % Baso % (Auto) 0.4 (0-2) % Lymph # (Auto) 1.2 (1.2-4.9) X10*3/uL [place] # (Auto) 1.3 H (0.1-1.2) X10*3/uL Eos # (Auto) 0.0 (0.0-0.4) X10*3/uL Baso # (Auto) 0.0 (0.0-0.2) X10*3/uL Abs Immat Gran (auto) 0.14 H (0.00-0.03) X10*3/uL Absolute Neuts (auto) 8.5 H (2.0-8.3) x10*3/uL Absolute Nucleated RBC 0.000 (0.0-0.012) X10*3/uL Nucleated RBC % (auto) 0.0 (0.0-0.2) /100WBC Sodium 142 (135-145) mmol/L Potassium 3.4 D (3.3-5.1) mmol/L Chloride 109 H (96-108) mmol/L Carbon Dioxide 26 (22-29) mmol/L Anion Gap 10 L (12-20) BUN 15 (9-16) mg/dL Creatinine 0.86 (0.5-1.4) mg/dL Estim Creat Clear Calc 63.4 Estimated GFR > 60 Random Glucose 107 (60-115) mg/dL Calcium 9.2 (8.4-10.2) mg/dL Magnesium 2.1 (1.6-2.6) mg/dL Total Bilirubin 0.4 (0.0-1.0) mg/dL AST 15 (5-37) U/L ALT 16 (0-40) U/L Alkaline Phosphatase 80 (39-117) U/L Total Protein 7.0 (6.5-8.0) g/dL Albumin 4.1 (3.5-5.0) g/dL Urine Color Yellow Urine Appearance Turbid Urine pH 7.5 (5.0-9.0) Ur Specific [place] 1.015 (1.005-1.025) Urine Protein Negative (Neg-Trace) mg/dL Urine Glucose (UA) Negative (Negative) mg/dL Urine Ketones Negative (Negative) mg/dL Urine Blood Negative (Negative) Urine Nitrite Negative (Negative) Ur Leukocyte Esterase Negative (Negative) COVID-19 (RED) Negative (Negative) COVID-19 Clin Com See Note Independent Interpretation I performed an independent interpretation of an: Plain X-Ray Radiology Impression Discussion of test interpretation with radiology: I have reviewed the radiologist's reading. Critical Care Time Critical Care Time Critical Care Time: No Discharge Plan Discharge Clinical Impression: Acute lumbar back pain, Viral illness Patient Disposition: Home, Self-Care Instructions: Acute Low Back Pain (ED), Viral Syndrome (ED), Back Pain (ED) Additional Instructions: Take your medications as prescribed. If you were prescribed antibiotics today, it is important that you take your medication to their entirety, do not skip any doses, do not finish them early. Follow-up with your primary care provider this week. Return to the emergency department with new or worsening symptoms. Such as fevers, chills, chest pain, shortness of breath, nausea, vomiting, dizziness, headache, vision changes, lethargy In case of emergency call 911 Prescriptions: New prednisone 20 mg tablet 40 mg PO DAILY 5 Days Qty: 10 0RF albuterol sulfate 90 mcg/actuation aerosol powdr breath activated 2 inh inhalation Q4-6H PRN (Reason: shortness of breath or wheezing) Qty: 1 0RF ibuprofen 600 mg tablet 600 mg PO Q8H PRN (Reason: fever or pain) Qty: 30 0RF lidocaine 5 % adhesive patch,medicated 1 patch topical DAILY PRN (Reason: pain) Qty: 15 0RF Rx Instructions: leave on most painful area for up to 12 hrs No Action montelukast 10 mg tablet 10 mg PO BEDTIME Qty: 90 0RF fluticasone propion-salmeterol 250-50 mcg/dose blister with device 1 ea PO BID Qty: 180 0RF benzonatate 100 mg capsule 100 mg PO TID PRN (Reason: cough) Qty: 20 0RF levocetirizine 5 mg tablet 5 mg PO DAILY Qty: 14 0RF omeprazole 20 mg capsule,delayed release(DR/EC) 20 mg PO DAILY atorvastatin 20 mg tablet 20 mg PO DAILY diltiazem HCl 120 mg capsule,extended release 24hr 120 mg PO DAILY (DME) nebulizers Misc See Rx Instructions .Route Rx Instructions: As directed prednisone 20 mg tablet 20 mg PO BID 5 Days Qty: 10 1RF albuterol sulfate 90 mcg/actuation HFA aerosol inhaler 2 puff inhalation Q4-6H PRN (Reason: shortness of breath or wheezing) 30 Days Qty: 8.5 3RF albuterol sulfate 2.5 mg /3 mL (0.083 %) solution for nebulization 2.5 mg inhalation Q4-6H PRN (Reason: shortness of breath or wheezing) Qty: 180 2RF Referrals: Physician,Unknown J [Primary Care Provider] - 2 days
[2023-03-20 14:25] LABS: MANUAL DIFF FLAG NO
[2023-03-20 14:30] LABS: Basophils Percent Auto 0.4 % (0-2); Eosinophils Percent Auto 0.1 % (0-4); Hemoglobin 14.8 g/dl (14.0-18.0); Imm Gran Abs Auto 0.14 X10*3/uL (0.00-0.03); Imm Gran Pct Auto 1.3 % (0.0-0.4); Lymphocytes Absolute Auto 1.2 X10*3/uL (1.2-4.9); Lymphocytes Percent Auto 10.5 % (20-40); Mean Corpuscular HGB Conc 34.4 g/dl (31.0-36.0); Mean Corpuscular Volume 90.1 fL (80.0-98.0); Mean Platelet Volume 9.3 fL (9.4-12.4); Monocytes Absolute Auto 1.3 X10*3/uL (0.1-1.2); Monocytes Percent Auto 11.4 % (2-11); Neutrophils Absolute Auto 8.5 x10*3/uL (2.0-8.3); Neutrophils Percent Auto 76.3 % (45-73); Platelet Count 234 X10*3/uL (160-400); Red Blood Count 4.77 X10*6/uL (4.60-5.80); Red Cell Distribution Width 12.3 % (11.0-16.0); White Blood Count 11.1 X10*3/uL (4.8-10.8)
[2023-03-20] MEDS: fentaNYL citrate/PF 100 MCG/2 ML VIAL 50 MCG IVPUSH ×2 (14:31→18:25)
[2023-03-20] MEDS: Lidocaine 4 % Patch ADH..PATCH 1 PATCH TRANSDERMA (14:32)
[2023-03-20 14:45] LABS: Alanine Aminotransferase 16 U/L (0-40); Albumin Level 4.1 g/dL (3.5-5.0); Alkaline Phosphatase 80 U/L (39-117); Anion Gap 10 (12-20); Aspartate Amino Transferase 15 U/L (5-37); Bilirubin Total 0.4 mg/dL (0.0-1.0); Blood Urea Nitrogen 15 mg/dL (9-16); Calcium 9.2 mg/dL (8.4-10.2); Carbon Dioxide 26 mmol/L (22-29); Chloride 109 mmol/L (96-108); Creatinine Clr Calc Pharmacy 63.4; Estimated Glomerular Filt Rate > 60; Glucose Random 107 mg/dL (60-115); Magnesium 2.1 mg/dL (1.6-2.6); Potassium 3.4 mmol/L (3.3-5.1); Sodium 142 mmol/L (135-145)
[2023-03-20 15:08] LABS: COVID-19 Test Negative (Negative); IDNOW Serial# BCCEAD1C
[2023-03-20 15:46] VITALS: BP 158/89; PULSE 64; RESP 16; O2SAT 94
[2023-03-20 16:02] LABS: Appearance Urine Turbid; Color Urine Yellow; Glucose Urine UA Negative (Negative); Leukocyte Esterase Urine Negative (Negative); Nitrite Urine Negative (Negative); PH 7.5 (5.0-9.0); Specific Gravity - Urine 1.015 (1.005-1.025); Urine Blood Negative (Negative); Urine Ketones Negative (Negative); Urine Protein Negative (Neg-Trace)
[2023-03-20 18:01] VITALS: BP 161/88; PULSE 67; RESP 14; O2SAT 97
[2023-03-20 18:25] VITALS: BP 158/85; PULSE 68; RESP 20; O2SAT 96
== END 2023-03-20 18:37 | disposition home or self-care (01) ==
PROVIDERS: Physician Assistant; Physician Assistant Medical; Emergency Provider Student in an Organized Health Care Education/Training Program
DX: G89.11 Acute pain due to trauma (principal); M54.50 Low back pain, unspecified; B34.9 Viral infection, unspecified; R05.9 Cough, unspecified; R53.81 Other malaise; Z11.52 Encounter for screening for COVID-19
CPT/HCPCS: 36415; 71045; 74176; 80053; 81003; 83735; 85025; 87635; 96374; 96376; 99283; 99284; J3010

== ENCOUNTER 2023-04-18 14:59 | Outpatient (AMB) | payer OTHER, SELFPAY ==
--- NOTE | 2023-04-18 15:06 | MHC.OFFVIS ---
Intake Vital Signs 04/18/23 15:08 Height 5 ft 1 in Weight 153 lb BMI 28.9 BP 110/80 Blood Pressure Location Lt brachial Position Sitting Pulse 91 Pulse Source Pulse Oximeter Pulse Oximetry (%) 96 Oxygen Delivery Method Room Air Intake Visit Reasons: copd Intake Note: pt is here for follow up and states he had an ER visit for a bad cough but it seems to be better now. 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 Remains fairly stable most of the time. But he gets acute flare ups of runny nose and cough, for which he has to take a short course of prednisone . Otherwise he ends up in the emergency room. So since last visit he had to go to the emergency room once with severe cough and back pain, Again it responded to prednisone for 5 days. At present he is doing very well without any acute symptoms. [facility] Medical History COPD exacerbation [id number] condition COVID-19 Cough Allergic rhinitis COPD (chronic obstructive pulmonary disease) Social History Patient Tobacco Use Status: Never used Tobacco Review of Systems Const All systems reviewed & are unremarkable except as noted in HPI and below Eyes Reports no additional complaints ENT Reports no additional complaints Card Denies chest pain, Denies irregular heart rhythm and Denies leg edema Resp Reports as per HPI, Reports cough and Reports wheezing GI Reports heartburn (Controlled with omeprazole) Reports no additional complaints Musc Reports no additional complaints Skin/Breast Reports system reviewed and no additional complaints, except as documented Neuro Reports no additional complaints Psych Reports no additional complaints Endo Reports no additional complaints Aller/Immun Reports wheezing Physical Exam Vital Signs: Last Vital Signs Pulse 91 04/18/23 15:08 BP 110/80 04/18/23 15:08 Pulse Ox 96 04/18/23 15:08 Oxygen Delivery Method Room Air 04/18/23 15:08 BMI result Body Mass Index 28.9 Const General: comfortable, no acute distress, alert and awake Orientation/consciousness: patient oriented x3 HEENT Head: Yes normal to inspection General nose exam: No nasal polyps present and No nasal discharge present Face and sinus: Yes sinuses nontender Mouth: oropharynx normal Throat: Yes posterior oropharynx normal Eyes General: appearance normal, both eyes and all related structures Neck Neck: Yes normal visual inspection, Yes no lymphadenopathy, Yes trachea midline and Yes no JVD Thyroid: Thyroid normal Chest Chest palpation & inspection: normal inspection of the chest, normal palpation of entire chest wall and no tenderness Resp Other: His chest examination shows increased AP diameter. Percussion note is slightly hyper-resonant. Breath sounds are distant with prolonged expiratory phase. No wheezes or crepitations are heard today. Cardio Palpation: normal PMI Rate: regular rate Rhythm: regular rhythm Heart sounds: no gallops and no murmurs GI Palpation (GI): Soft to palpation, nontender, No hepatosplenomegaly present and no masses Auscultation: normal bowel sounds Back/Spine/Pelvis Thoracic/Lumbar Spine: thoracic and lumbar spine normal to inspection Skin General skin exam: no rashes or lesions noted Neuro General: patient oriented x3 and no focal motor deficits Cranial nerves: Yes CN's II-XII intact bilaterally Extrem General: Yes normal to inspection, Yes no clubbing, cyanosis or edema and Yes no calf tenderness Psych Appearance: grossly normal and well kempt Speech and movement: Normal speech and movement present Assessment & Plan Assessment & Plan (1) COPD (chronic obstructive pulmonary disease): Comment: PATIENT DOES HAVE MODERATELY SEVERE CHRONIC OBSTRUCTIVE PULMONARY DISEASE. HE IS PRONE TO HAVE FREQUENT EXACERBATIONS AND RESPONDS TO ORAL PREDNISONE VERY QUICKLY. TX: CONTINUE ADVAIR 250-51 INHALATION B.I.D. ALBUTEROL HFA 2 PUFFS Q 4-6 HOURS P.R.N. WHEN OUTDOORS, AT HOME HE CAN USE ALBUTEROL SOLUTION IN THE NEBULIZER Q 4-6 HOURS ONLY P.R.N.. HE IS GIVEN A SUPPLY OF PREDNISONE TO KEEP ON HAND, AND USE IN CASE OF ACUTE EXACERBATION, IN ORDER TO AVOID EMERGENCY VISITS OF OR ADMISSIONS. Code(s): J44.9 - Chronic obstructive pulmonary disease, unspecified Plan: As above . He is given a short supply of prednisone again to use in case of persistent cough or wheezing, so that he can prevent going to emergency room. HE DOES NOT ABUSE PREDNISONE. (2) Allergic rhinitis: Comment: ALLERGIC RHINITIS, CHRONIC, MILD, REMAINS CONTROLLED. TX MONTELUKAST 10 MG DAILY, AND LORATADINE 10 MG ONCE A DAY P.R.N.. Code(s): J30.9 - Allergic rhinitis, unspecified Plan: Advised to continue taking present meds. Medications: New prednisone 20 mg PO BID 10 tabs 1RF cough and wheezing 5 days Coding Level of Care Code Est Pt Level 3 (75535) Diagnoses COPD (chronic obstructive pulmonary disease) J44.9 Allergic rhinitis J30.9
[2023-04-18 15:08] VITALS: BP 110/80; PULSE 91; O2SAT 96; BMI 28.9
== END 2023-04-18 15:26 | disposition home or self-care (01) ==
PROVIDERS: PCP Physician Assistant Medical; Visit Provider Internal Medicine
DX: J44.9 Chronic obstructive pulmonary disease, unspecified (principal); J30.9 Allergic rhinitis, unspecified
CPT/HCPCS: 99213

== ENCOUNTER → 2023-04-18 14:59 | Outpatient (BNVA) | payer OTHER, SELFPAY | PROVIDERS: PCP Physician Assistant Medical; Visit Provider Internal Medicine | DX: J44.9 Chronic obstructive pulmonary disease, unspecified (principal); J30.9 Allergic rhinitis, unspecified | CPT/HCPCS: 99212 ==

== ENCOUNTER 2023-07-05 13:57 | Outpatient (REF) | payer OTHER, SELFPAY ==
--- NOTE | ~2023-07-05 | XR_ITS ---
EXAMINATION: XR CHEST CLINICAL INFORMATION: Laryngitis and difficulty breathing COMPARISON: 03/20/2023 TECHNIQUE: Frontal view of the chest was obtained. FINDINGS: Elevated right hemidiaphragm continues. Scarring in the peripheral inferior right upper lobe continues. There is no evidence for new consolidation and airspace opacity. Heart and pulmonary vessels are normal. XR/XR chest 1V IMPRESSION: No acute intrathoracic disease.
== END 2023-07-05 13:58 | disposition home or self-care (01) ==
LOC: HO.XRAY 13:57
PROVIDERS: PCP Physician Assistant Medical; Visit Provider Internal Medicine
DX: J04.0 Acute laryngitis (principal); J44.1 Chronic obstructive pulmonary disease with (acute) exacerbation
CPT/HCPCS: 71045; 99212

== ENCOUNTER 2023-07-05 13:57 | Outpatient (AMB) | payer OTHER, SELFPAY ==
[2023-07-05 14:11] VITALS: BP 140/90; PULSE 92; O2SAT 95; BMI 28.3
--- NOTE | 2023-07-05 14:11 | A.OFFVIS_ITS ---
Intake Vital Signs 07/05/23 14:11 07/05/23 15:12 Height 5 ft 1 in Weight 149 lb 14.629 oz BMI 28.3 28.3 BP 140/90 H Blood Pressure Location Lt brachial Position Sitting Pulse 92 Pulse Source Pulse Oximeter Pulse Oximetry (%) 95 Oxygen Delivery Method Room Air Intake Visit Reasons: persistent cough Intake Note: pt is here for an urgent sick visit, for a persistent cough day and night, dry cough, had this start i May and pcp gave antibiotic and prednisone and better for a few days and now back very bad, coughing is causing pain in chest. hurts to cough, pt states he is using Flovent 220 now, but not on his med list. [employer] Required: No Allergies morphine Allergy (Severe, Verified 07/05/23 15:05) tachycardia acetaminophen [Percocet] Allergy (Unknown, Verified 07/05/23 15:05) Unknown codeine [Tylenol-Codeine] Allergy (Unknown, Verified 07/05/23 15:05) Unknown oxycodone [Percocet] Allergy (Unknown, Verified 07/05/23 15:05) Unknown penicillin V Allergy (Unknown, Verified 07/05/23 15:05) Unknown Medication List - Last Reconciled 07/05/23 by Nkechi Hickey MD albuterol sulfate 90 mcg/actuation 2 inhalations inhalation Q4-6H PRN albuterol sulfate 2.5 mg (3 mL) inhalation Q4-6H PRN atorvastatin 20 mg PO DAILY azithromycin For 250 mg dose pack: take 500 mg today (day 1), then 250 mg for 4 days (days 2-5) PO diltiazem HCl 120 mg PO DAILY fluticasone propion-salmeterol 250-50 mcg/dose 1 ea PO BID ibuprofen 600 mg PO Q8H PRN montelukast 10 mg PO BEDTIME nebulizers As directed omeprazole 20 mg PO DAILY prednisone 20 mg PO BID 1 week PFSH Medical History Laryngitis COPD exacerbation [id number] condition COVID-19 Cough Allergic rhinitis COPD (chronic obstructive pulmonary disease) Social History Patient Tobacco Use Status: Never used Tobacco Physical Exam Vital Signs: Last Vital Signs Pulse 92 07/05/23 14:11 BP 140/90 H 07/05/23 14:11 Pulse Ox 95 07/05/23 14:11 Oxygen Delivery Method Room Air 07/05/23 14:11 BMI result Body Mass Index 28.3 Assessment & Plan Assessment & Plan (1) COPD exacerbation: Comment: This patient has mild chronic obstructive pulmonary disease which has remained fairly well controlled. BUT CURRENTLY HE HAS ACUTE EXACERBATIONS, PROBABLY DUE TO CLIMATE CHANGE. HE IS PRONE TO HAVE RECURRENT ACUTE EXACERBATION DUE TO CHANGES IN AIR QUALITY OR ALLERGIES. Code(s): J44.1 - Chronic obstructive pulmonary disease with (acute) exacerbation (2) Allergic rhinitis: Comment: ALLERGIC RHINITIS, CHRONIC, MILD, REMAINS CONTROLLED. T Code(s): J30.9 - Allergic rhinitis, unspecified (3) Laryngitis: Comment: HAS DEVELOPED HOARSENESS ALONG WITH INCREASED COUGH, THERE IS NO OBVIOUS THRUSH, ACUTE INFECTION IN THE THROAT. Code(s): J04.0 - Acute laryngitis Orders: Orders XR chest 1V Today J04.0 - Acute laryngitis, J44.1 - Chronic obstructive pulmonary disease with (acute) exacerbation Medications: New prednisone 20 mg PO BID 14 tabs 0RF copd excerbation 1 week azithromycin For 250 mg dose pack: take 500 mg today (day 1), then 250 mg for 4 days (days 2-5) PO 6 tabs 0RF Coding Diagnoses COPD exacerbation J44.1 Allergic rhinitis J30.9 Laryngitis J04.0
--- NOTE | 2023-07-05 15:04 | A.OFFVIS_ITS ---
Intake Vital Signs 07/05/23 14:11 Height 5 ft 1 in Weight 149 lb 14.629 oz BMI 28.3 BP 140/90 H Blood Pressure Location Lt brachial Position Sitting Pulse 92 Pulse Source Pulse Oximeter Pulse Oximetry (%) 95 Oxygen Delivery Method Room Air Intake Visit Reasons: persistent cough Allergies morphine Allergy (Severe, Verified 07/05/23 15:05) tachycardia acetaminophen [Percocet] Allergy (Unknown, Verified 07/05/23 15:05) Unknown codeine [Tylenol-Codeine] Allergy (Unknown, Verified 07/05/23 15:05) Unknown oxycodone [Percocet] Allergy (Unknown, Verified 07/05/23 15:05) Unknown penicillin V Allergy (Unknown, Verified 07/05/23 15:05) Unknown Medication List - Last Reconciled 07/05/23 by Nkechi Hickey MD albuterol sulfate 90 mcg/actuation 2 inhalations inhalation Q4-6H PRN albuterol sulfate 2.5 mg (3 mL) inhalation Q4-6H PRN atorvastatin 20 mg PO DAILY azithromycin For 250 mg dose pack: take 500 mg today (day 1), then 250 mg for 4 days (days 2-5) PO diltiazem HCl 120 mg PO DAILY fluticasone propion-salmeterol 250-50 mcg/dose 1 ea PO BID ibuprofen 600 mg PO Q8H PRN montelukast 10 mg PO BEDTIME nebulizers As directed omeprazole 20 mg PO DAILY prednisone 20 mg PO BID 1 week Do you need a note to return to daycare/school/sports/work: No HPI persistent cough HPI Details This 72 years old very pleasant gentleman, comes for an urgent visit because he has had persistent cough for the last 3 weeks. He has lost his voice . Denies fever or chills. He has increased cough but this is mostly dry . He also has increased shortness of breath. He has longstanding history of allergic rhinitis which flares up periodically especially at change of weather. [facility] Medical History Laryngitis COPD exacerbation [id number] condition COVID-19 Cough Allergic rhinitis COPD (chronic obstructive pulmonary disease) Social History Patient Tobacco Use Status: Never used Tobacco Review of Systems Const All systems reviewed & are unremarkable except as noted in HPI and below Eyes Reports no additional complaints ENT Reports no additional complaints Card Denies chest pain, Denies irregular heart rhythm and Denies leg edema Resp Reports as per HPI, Reports cough and Reports wheezing GI Reports heartburn (Controlled with omeprazole) Reports no additional complaints Musc Reports no additional complaints Skin/Breast Reports system reviewed and no additional complaints, except as documented Neuro Reports no additional complaints Psych Reports no additional complaints Endo Reports no additional complaints Aller/Immun Reports wheezing Physical Exam Vital Signs: Last Vital Signs Pulse 92 07/05/23 14:11 BP 140/90 H 07/05/23 14:11 Pulse Ox 95 07/05/23 14:11 Oxygen Delivery Method Room Air 07/05/23 14:11 BMI result Body Mass Index 28.3 His voice is hoarse., otherwise he looks stable and as usual. Const General: comfortable, no acute distress, alert and awake Orientation/consciousness: patient oriented x3 HEENT Head: Yes normal to inspection General nose exam: No nasal polyps present and No nasal discharge present Face and sinus: Yes sinuses nontender Mouth: oropharynx normal (Throat is very clear.) Throat: Yes posterior oropharynx normal Eyes General: appearance normal, both eyes and all related structures Neck Neck: Yes normal visual inspection, Yes no lymphadenopathy, Yes trachea midline and Yes no JVD Thyroid: Thyroid normal Chest Chest palpation & inspection: normal inspection of the chest, normal palpation of entire chest wall and no tenderness Resp Other: His chest examination shows increased AP diameter. Percussion note is slightly hyper-resonant. Breath sounds are distant with prolonged expiratory phase. No wheezes or crepitations are heard today. Cardio Palpation: normal PMI Rate: regular rate Rhythm: regular rhythm Heart sounds: no gallops and no murmurs GI Palpation (GI): Soft to palpation, nontender, No hepatosplenomegaly present and no masses Auscultation: normal bowel sounds Back/Spine/Pelvis Thoracic/Lumbar Spine: thoracic and lumbar spine normal to inspection Skin General skin exam: no rashes or lesions noted Neuro General: patient oriented x3 and no focal motor deficits Cranial nerves: Yes CN's II-XII intact bilaterally Extrem General: Yes normal to inspection, Yes no clubbing, cyanosis or edema and Yes no calf tenderness Psych Appearance: grossly normal and well kempt Speech and movement: Normal speech and movement present Results Reviewed Results Reviewed: Patient is sent for a chest x-ray today Assessment & Plan Assessment & Plan (1) COPD exacerbation: Comment: This patient has mild chronic obstructive pulmonary disease which has remained fairly well controlled. BUT CURRENTLY HE HAS ACUTE EXACERBATIONS, PROBABLY DUE TO CLIMATE CHANGE. HE IS PRONE TO HAVE RECURRENT ACUTE EXACERBATION DUE TO CHANGES IN AIR QUALITY OR ALLERGIES. Code(s): J44.1 - Chronic obstructive pulmonary disease with (acute) exacerbation Plan: TX : Prednisone 20 mg BID for ONE week , Also started on z-JESSEE , continue WIXELA 250-50 ONE INH BID Albuterol by nebulizer Q 4-6 hours p.r.n. Alternately ProAir 2 puffs Q 4-6 hours p.r.n. when outdoors. chest xray ordered to rule out any acute lung disease. (2) Allergic rhinitis: Comment: ALLERGIC RHINITIS, CHRONIC, MILD, REMAINS CONTROLLED. T Code(s): J30.9 - Allergic rhinitis, unspecified Plan: X MONTELUKAST 10 MG DAILY, AND LORATADINE 10 MG ONCE A DAY P.R.N.. (3) Laryngitis: Comment: HAS DEVELOPED HOARSENESS ALONG WITH INCREASED COUGH, THERE IS NO OBVIOUS THRUSH, ACUTE INFECTION IN THE THROAT. Code(s): J04.0 - Acute laryngitis Plan: May be part of his upper respiratory infection.. CHEST X-RAY IS ORDERED Orders: Orders XR chest 1V Today J04.0 - Acute laryngitis, J44.1 - Chronic obstructive pulmonary disease with (acute) exacerbation Medications: New prednisone 20 mg PO BID 1 week 14 tabs 0RF copd excerbation azithromycin For 250 mg dose pack: take 500 mg today (day 1), then 250 mg for 4 days (days 2-5) PO 6 tabs 0RF Quality Reporting (2019) Adult ([facility] 138/2/69) Body Mass Index: 28.3 Coding Level of Care Code Est Pt Level 3 (25068) Diagnoses COPD exacerbation J44.1 Allergic rhinitis J30.9 Laryngitis J04.0
[2023-07-05 15:12] VITALS: BMI 28.3
--- NOTE | 2023-07-05 15:13 | MHC.OFFVIS ---
Intake Vital Signs 07/05/23 14:11 07/05/23 15:12 Height 5 ft 1 in Weight 149 lb 14.629 oz BMI 28.3 28.3 BP 140/90 H Blood Pressure Location Lt brachial Position Sitting Pulse 92 Pulse Source Pulse Oximeter Pulse Oximetry (%) 95 Oxygen Delivery Method Room Air Intake Visit Reasons: persistent cough Allergies morphine Allergy (Severe, Verified 07/05/23 15:05) tachycardia acetaminophen [Percocet] Allergy (Unknown, Verified 07/05/23 15:05) Unknown codeine [Tylenol-Codeine] Allergy (Unknown, Verified 07/05/23 15:05) Unknown oxycodone [Percocet] Allergy (Unknown, Verified 07/05/23 15:05) Unknown penicillin V Allergy (Unknown, Verified 07/05/23 15:05) Unknown Medication List - Last Reconciled 07/05/23 by Nkechi Hickey MD albuterol sulfate 90 mcg/actuation 2 inhalations inhalation Q4-6H PRN albuterol sulfate 2.5 mg (3 mL) inhalation Q4-6H PRN atorvastatin 20 mg PO DAILY azithromycin For 250 mg dose pack: take 500 mg today (day 1), then 250 mg for 4 days (days 2-5) PO diltiazem HCl 120 mg PO DAILY fluticasone propion-salmeterol 250-50 mcg/dose 1 ea PO BID ibuprofen 600 mg PO Q8H PRN montelukast 10 mg PO BEDTIME nebulizers As directed omeprazole 20 mg PO DAILY prednisone 20 mg PO BID 1 week PFSH Medical History Laryngitis COPD exacerbation [id number] condition COVID-19 Cough Allergic rhinitis COPD (chronic obstructive pulmonary disease) Social History Patient Tobacco Use Status: Never used Tobacco Physical Exam Vital Signs: Last Vital Signs Pulse 92 07/05/23 14:11 BP 140/90 H 07/05/23 14:11 Pulse Ox 95 07/05/23 14:11 Oxygen Delivery Method Room Air 07/05/23 14:11 BMI result Body Mass Index 28.3 Assessment & Plan Assessment & Plan (1) COPD exacerbation: Comment: This patient has mild chronic obstructive pulmonary disease which has remained fairly well controlled. BUT CURRENTLY HE HAS ACUTE EXACERBATIONS, PROBABLY DUE TO CLIMATE CHANGE. HE IS PRONE TO HAVE RECURRENT ACUTE EXACERBATION DUE TO CHANGES IN AIR QUALITY OR ALLERGIES. Code(s): J44.1 - Chronic obstructive pulmonary disease with (acute) exacerbation Plan: Prednisone 20 mg b.i.d. for 1 week. Z-Jacky 250 mg as directed Continue Wixela 250-51 inhalation b.i.d. (2) Allergic rhinitis: Comment: ALLERGIC RHINITIS, CHRONIC, MILD, REMAINS CONTROLLED. Code(s): J30.9 - Allergic rhinitis, unspecified Plan: Continue montelukast 10 mg daily Loratadine 10 mg once a day p.r.n. (3) Laryngitis: Comment: HAS DEVELOPED HOARSENESS ALONG WITH INCREASED COUGH, THERE IS NO OBVIOUS THRUSH, ACUTE INFECTION IN THE THROAT. Code(s): J04.0 - Acute laryngitis Plan: as above Orders: Orders XR chest 1V Today J04.0 - Acute laryngitis, J44.1 - Chronic obstructive pulmonary disease with (acute) exacerbation Medications: New prednisone 20 mg PO BID 1 week 14 tabs 0RF copd excerbation azithromycin For 250 mg dose pack: take 500 mg today (day 1), then 250 mg for 4 days (days 2-5) PO 6 tabs 0RF Quality Reporting (2019) Adult ([facility] 138/07/05/68) Body Mass Index: 28.3 Coding Level of Care Code Est Pt Level 3 (18410) Diagnoses COPD exacerbation J44.1 Allergic rhinitis J30.9 Laryngitis J04.0
[2023-07-05 15:25] VITALS: BMI 28.3
== END 2023-07-05 14:32 | disposition home or self-care (01) ==
PROVIDERS: PCP Physician Assistant Medical; Visit Provider Internal Medicine
DX: J44.1 Chronic obstructive pulmonary disease with (acute) exacerbation (principal); J04.0 Acute laryngitis
CPT/HCPCS: 99213

== ENCOUNTER 2023-07-08 16:24 | Emergency (ER) | payer OTHER, SELFPAY ==
--- NOTE | ~2023-07-08 | CT_ITS ---
EXAMINATION: CT ABDOMEN AND PELVIS WITHOUT CONTRAST CLINICAL INFORMATION: Flank pain and hematuria COMPARISON: CT abdomen and pelvis 03/20/2023 TECHNIQUE: Multidetector volumetric imaging was performed from the superior aspect of the liver through the pubic symphysis. Sagittal and coronal reformatted images were obtained on the technologist's workstation. This CT examination was performed using dose optimization techniques as appropriate, variously including the following: *Automated exposure control *Adjustment of mA and/or kV according to patient size (this includes techniques or standardized protocols for targeted exams where dose is matched to indication/reason for exam; i.e. extremities or head) *Use of iterative reconstruction technique DLP: 461 mGy-cm FINDINGS: LUNG BASES: Unchanged subpleural reticulation and scarring with traction bronchiectasis. No pleural effusion. No suspicious pulmonary nodules. LIVER, GALLBLADDER, AND BILIARY TREE: The liver is normal in size, shape, and attenuation. No focal hepatic lesion or biliary ductal dilatation is present. The gallbladder is surgically absent. PANCREAS: Unremarkable. SPLEEN: Unremarkable. ADRENAL GLANDS: Unremarkable. KIDNEYS AND URETERS: The kidneys are normal in size, shape, and attenuation. Punctate, nonobstructing stone noted in the left kidney. BLADDER: The bladder is decompressed and diffusely thick-walled. GASTROINTESTINAL TRACT: Mild colonic diverticulosis without evidence of diverticulitis. Small hiatal hernia. ABDOMINAL WALL: No significant hernia is appreciated. LYMPH NODES: Normal. VASCULAR: Unremarkable. PELVIC VISCERA: Unremarkable. OSSEOUS STRUCTURES: Diffuse osteopenia. Degenerative changes of the lumbar spine. Unchanged height loss at L3 CT/CT abdomen pelvis wo IV con IMPRESSION: Punctate nonobstructing stone in the left kidney. No hydronephrosis. Fleischner guidelines were followed.
[2023-07-08 16:38] VITALS: BP 169/89; PULSE 77; RESP 16; TEMP 36.6; O2SAT 97; BMI 27.4
--- NOTE | 2023-07-08 16:41 | ED.GENADULT ---
HPI - General Adult General Chief complaint: Urogenital-Male Stated complaint: UTI? Throat sore Time Seen by Provider: 07/08/23 16:49 Source: patient, old records reviewed and photo technologist Mode of arrival: ambulatory Limitations: no limitations History of Present Illness HPI narrative: 72 yo male with PMH of COPD, HLD, GERD, HTN, s/p radiation therapy for prostate cancer reports now under surveillance, currently started therapy for laryngitis on 07/05 by PCP for 3 weeks of sore throat and hoarse voice just started on prednisone and azithromycin. He comes in with c/o noticing blood in the urine last week but no pain. Today he has to keep urinating with scant drops of blood no clots and can barely make it to the bathroom. He has no pain no fevers no vomiting or diarrhea. Not on thinners. MD complaint: urinary frequency, hematuria, dysuria Onset (ago): day(s) (this AM) Location: genitals Radiation: non-radiation Severity: mild Quality: burning Pain Consistency: intermittent Relieving factors: none Exacerbating factors: other (urination) Associated symptoms: other (hematuria) Treatments prior to arrival: none Related Data Home Medications Medication Instructions Recorded Confirmed atorvastatin 20 mg tablet 20 mg PO DAILY 02/23/21 07/05/23 omeprazole 20 mg capsule,delayed 20 mg PO DAILY 02/23/21 07/05/23 release diltiazem HCl 120 mg 120 mg PO DAILY 08/09/21 07/05/23 capsule,extended release 24 hr nebulizers 12/07/22 07/05/23 Previous Rx's Medication Instructions Recorded albuterol sulfate 2.5 mg/3 mL 2.5 mg (3 mL) inhalation Q4-6H PRN 11/08/22 (0.083 %) solution for nebulization shortness of breath or wheezing #180 mL fluticasone 250 mcg-salmeterol 50 1 ea PO BID #180 ea 11/10/22 mcg/dose blistr powdr for inhalation albuterol sulfate 90 mcg/actuation 2 inh inhalation Q4-6H PRN 03/20/23 breath activated powder inhaler shortness of breath or wheezing #1 ea ibuprofen 600 mg tablet 600 mg PO Q8H PRN fever or pain 03/20/23 #30 tabs montelukast 10 mg tablet 10 mg PO BEDTIME #90 tabs 06/26/23 azithromycin 250 mg tablet See Rx Instructions PO .COMPLEX #6 07/05/23 tabs prednisone 20 mg tablet 20 mg PO BID copd excerbation 1 07/05/23 week #14 tabs cefuroxime axetil 250 mg tablet 250 mg PO BID 10 days #20 tabs 07/08/23 Allergies Allergy/AdvReac Type Severity Reaction Status Date / Time morphine Allergy Severe tachycardia Verified 07/08/23 16:38 acetaminophen [Percocet] Allergy Unknown Unknown Verified 07/08/23 16:38 codeine [Tylenol-Codeine] Allergy Unknown Unknown Verified 07/08/23 16:38 oxycodone [Percocet] Allergy Unknown Unknown Verified 07/08/23 16:38 penicillin V Allergy Unknown Unknown Verified 07/08/23 16:38 Review of Systems Review of Systems: Constitutional : No Fever, No Chills, No Fatigue ENT/Mouth : pos sore throat, No Rhinorrhea Eyes: No Eye Pain, No Swelling, No Redness Cardiovascular : No Chest Pain, No SOB, No Dyspnea on Exertion Respiratory : No Cough, No Sputum Gastrointestinal : No Nausea, No Vomiting, No Diarrhea, No abdominal Pain Genitourinary : pos Dysuria, pos Urinary Frequency, pos Hematuria, Musculoskeletal : No joint pain, No Myalgias, No Joint Swelling Skin : No Skin Lesions, No rash Neuro : No Weakness, No Numbness, No Dizziness, no Headache Psych : No Anxiety/Panic, No Depression All other systems reviewed and are negative [facility] Past Medical History Attestation statement: The following information was validated with the patient. Source: old records reviewed Medical History Laryngitis COPD exacerbation [id number] condition COVID-19 Cough Allergic rhinitis COPD (chronic obstructive pulmonary disease) Social History Social History Patient Tobacco Use Status: Never used Tobacco Smoked in Last 30 Days: No Use of substances other than those prescribed or required for medical reasons: No Advance Directives: No Advance Directives Information Provided: No Physical Exam ED Vital Signs: Vital Signs - 24 hr 07/08/23 16:38 07/08/23 17:19 Temperature 97.9 F 97.7 F Pulse Rate 77 74 Respiratory Rate 16 16 Blood Pressure 169/89 H 158/92 H Pulse Oximetry 97 97 Oxygen Delivery Method Room Air Room Air BMI result Body Mass Index 27.4 Appearance: Alert. Oriented X3. No acute distress. Eyes: Pupils equal, round and reactive to light. ENT: Pharynx normal. no erythema or exudates no swelling voice is hoarse Neck: Normal inspection. Neck supple. CVS: Normal heart rate and rhythm. Pulses normal. Respiratory: No respiratory distress. Breath sounds normal. Abdomen: Soft and nontender. Skin: Skin warm and dry. Normal skin color. Normal skin turgor. Extremities: No lower extremity edema. Neuro: Oriented X 3. No motor deficit. No sensory deficit. Course Course Course Narrative: This is an RME: Additional HPI, ROS, PE not included below will be deferred to primary provider. Patient is a 72-year-old male who presents emergency department for evaluation of Sore throat/hoarseness for 2 weeks, had been coughing received a prescription for antibiotic and prednisone 2 days ago without any improvement. In October 2022 he started radiation prostate cancer, Over the past week he has been experiencing dysuria, hematuria intermittently over the past week, urinary frequency. Expressing concern about a bleeding hemorrhoid Plan: Labs, urinalysis, viral testing, strep a Medical Decision Making Medical Decision Making [facility] Narrative: 72 yo male with PMH of COPD, HLD, GERD, HTN, s/p radiation therapy for prostate cancer reports now under surveillance here with c/o dysuria, hematuria, urinary frequency but no fevers or pain. At this time will need labs, UA, CT scan for mass/renal colic. Already on prednisone which is likely the cause of his WBC count. Currently on zpak for laryngitis which will not cover his urinary pathology if UA positive. Differential Diagnosis Differential Diagnoses: The differential diagnosis associated with the presentation includes mass, UTI, hematuria, prostatitis Admission/Observation Consideration of admission/observation: Escalation of care including admission/observation considered labs stable, able to urinate, not sherri blood can be DC home on ceftin and stop azithromycin Lab Data [facility] Lab Attestation statement: I reviewed the patient's lab results. 07/08/23 16:52 07/08/23 16:52 Labs: Lab Results 07/08/23 07/08/23 Range/Units 16:52 17:44 WBC 14.0 H (4.8-10.8) X10*3/uL RBC 5.38 (4.60-5.80) X10*6/uL Hgb 16.2 (14.0-18.0) g/dl Hct 48.2 (42.0-52.0) % MCV 89.6 (80.0-98.0) fL MCH 30.1 (27.0-33.0) pg MCHC 33.6 (31.0-36.0) g/dl RDW 13.3 (11.0-16.0) % Plt Count 282 (160-400) X10*3/uL MPV 8.8 L (9.4-12.4) fL Immature Gran % (Auto) 1.6 H (0.0-0.4) % Neut % (Auto) 74.1 H (45-73) % Lymph % (Auto) 14.9 L (20-40) % Falls % (Auto) 8.5 (2-11) % Eos % (Auto) 0.6 (0-4) % Baso % (Auto) 0.3 (0-2) % Lymph # (Auto) 2.1 (1.2-4.9) X10*3/uL Falls # (Auto) 1.2 (0.1-1.2) X10*3/uL Eos # (Auto) 0.1 (0.0-0.4) X10*3/uL Baso # (Auto) 0.0 (0.0-0.2) X10*3/uL Abs Immat Gran (auto) 0.23 H (0.00-0.03) X10*3/uL Absolute Neuts (auto) 10.4 H (2.0-8.3) x10*3/uL Absolute Nucleated RBC 0.000 (0.0-0.012) X10*3/uL Nucleated RBC % (auto) 0.0 (0.0-0.2) /100WBC PT 11.0 L (11.1-13.3) SEC INR 0.9 (0.9-1.1) Sodium 143 (135-145) mmol/L Potassium 4.8 (3.3-5.1) mmol/L Chloride 106 (96-108) mmol/L Carbon Dioxide 26 (22-29) mmol/L Anion Gap 16 (12-20) BUN 19 H (9-16) mg/dL Creatinine 1.05 (0.5-1.4) mg/dL Estim Creat Clear Calc 51.1 Estimated GFR > 60 Random Glucose 93 (60-115) mg/dL Calcium 9.6 (8.4-10.2) mg/dL Total Bilirubin 0.5 (0.0-1.0) mg/dL AST 16 (5-37) U/L ALT 22 (0-40) U/L Alkaline Phosphatase 100 (39-117) U/L Total Protein 7.4 (6.5-8.0) g/dL Albumin 4.3 (3.5-5.0) g/dL Urine Color Yellow Urine Appearance Clear Urine pH 7.0 (5.0-9.0) Ur Specific [place] 1.020 (1.005-1.025) Urine Protein Negative (Neg-Trace) mg/dL Urine Glucose (UA) Negative (Negative) mg/dL Urine Ketones Negative (Negative) mg/dL Urine Blood Moderate (2+) H (Negative) Urine Nitrite Negative (Negative) Ur Leukocyte Esterase Negative (Negative) Urine RBC >20 H (0-2) /HPF Urine WBC 0-5 (0-5) /HPF Ur Squamous Epith Cells 0-2 (0-2) /HPF Urine Bacteria None Seen (None Seen) Hyaline Casts 0-2 (0-2) /LPF Influenza Type A (PCR) NEGATIVE (Negative) Influenza Type B (PCR) NEGATIVE (Negative) RSV RNA Qual (PCR) NEGATIVE (Negative) SARS-CoV-2 RNA (RT-PCR) NEGATIVE (Negative) Independent Interpretation I performed an independent interpretation of an: CT Scan (cystitis) Radiology Impression Discussion of test interpretation with radiology: I have reviewed the radiologist's reading. External Record Review External record reviewed: Inpatient record Prescription Management I considered prescription management with: Antibiotic and Other Discharge Plan Discharge Clinical Impression: Cystitis Hematuria Qualifiers: Hematuria type: gross Qualified Code(s): R31.0 - Gross hematuria Patient Disposition: Home, Self-Care Instructions: Urinary Tract Infection in Men (ED), Hematuria (ED) Additional Instructions: stop the azithromycin. return for worsening pain, fevers, confusion, inability to urinate, no improvement in blood in 48 hours. follow up with your doctor about your throat if no better as well in 1 week. your doctor that manages your prostate should be notified about the blood in your urine as well suspender la azitromicina. Regrese por empeoramiento del dolor, fiebre, confusi?n, incapacidad para orinar, sin mejor?a en la nilam en 48 horas. Leeann un seguimiento con [place] m?dico acerca de car[place] garganta si no mejora tambi?n en 1 semana. [place] m?dico que maneja car[place] pr?stata tambi?n debe ser notificado sobre la nilam en [place] orina. Prescriptions: New cefuroxime axetil 250 mg tablet 250 mg PO BID 10 Days Qty: 20 0RF No Action fluticasone propion-salmeterol 250-50 mcg/dose blister with device 1 ea PO BID Qty: 180 0RF montelukast 10 mg tablet 10 mg PO BEDTIME Qty: 90 0RF albuterol sulfate 90 mcg/actuation aerosol powdr breath activated 2 inh inhalation Q4-6H PRN (Reason: shortness of breath or wheezing) Qty: 1 0RF ibuprofen 600 mg tablet 600 mg PO Q8H PRN (Reason: fever or pain) Qty: 30 0RF omeprazole 20 mg capsule,delayed release(DR/EC) 20 mg PO DAILY atorvastatin 20 mg tablet 20 mg PO DAILY diltiazem HCl 120 mg capsule,extended release 24hr 120 mg PO DAILY (DME) nebulizers Misc See Rx Instructions .Route Rx Instructions: As directed albuterol sulfate 2.5 mg /3 mL (0.083 %) solution for nebulization 2.5 mg inhalation Q4-6H PRN (Reason: shortness of breath or wheezing) Qty: 180 2RF prednisone 20 mg tablet 20 mg PO BID 7 Days Qty: 14 0RF azithromycin 250 mg tablet See Rx Instructions PO .COMPLEX Qty: 6 0RF Rx Instructions: For 250 mg dose pack: take 500 mg today (day 1), then 250 mg for 4 days (days 2-5) PO Print Language: [place]
[2023-07-08 16:56] LABS: MANUAL DIFF FLAG NO
[2023-07-08 17:04] LABS: Basophils Percent Auto 0.3 % (0-2); Eosinophils Absolute Auto 0.1 X10*3/uL (0.0-0.4); Eosinophils Percent Auto 0.6 % (0-4); Hematocrit 48.2 % (42.0-52.0); Hemoglobin 16.2 g/dl (14.0-18.0); Imm Gran Abs Auto 0.23 X10*3/uL (0.00-0.03); Imm Gran Pct Auto 1.6 % (0.0-0.4); Lymphocytes Absolute Auto 2.1 X10*3/uL (1.2-4.9); Lymphocytes Percent Auto 14.9 % (20-40); Mean Corpuscular HGB Conc 33.6 g/dl (31.0-36.0); Mean Corpuscular Hemoglobin 30.1 pg (27.0-33.0); Mean Corpuscular Volume 89.6 fL (80.0-98.0); Mean Platelet Volume 8.8 fL (9.4-12.4); Monocytes Absolute Auto 1.2 X10*3/uL (0.1-1.2); Monocytes Percent Auto 8.5 % (2-11); Neutrophils Absolute Auto 10.4 x10*3/uL (2.0-8.3); Neutrophils Percent Auto 74.1 % (45-73); Platelet Count 282 X10*3/uL (160-400); Red Blood Count 5.38 X10*6/uL (4.60-5.80); Red Cell Distribution Width 13.3 % (11.0-16.0)
[2023-07-08 17:11] LABS: INTERNATIONAL NORM RATIO 0.9 (0.9-1.1)
[2023-07-08 17:17] LABS: Alanine Aminotransferase 22 U/L (0-40); Albumin Level 4.3 g/dL (3.5-5.0); Alkaline Phosphatase 100 U/L (39-117); Anion Gap 16 (12-20); Aspartate Amino Transferase 16 U/L (5-37); Bilirubin Total 0.5 mg/dL (0.0-1.0); Blood Urea Nitrogen 19 mg/dL (9-16); Calcium 9.6 mg/dL (8.4-10.2); Carbon Dioxide 26 mmol/L (22-29); Chloride 106 mmol/L (96-108); Creatinine Clr Calc Pharmacy 51.1; Estimated Glomerular Filt Rate > 60; Glucose Random 93 mg/dL (60-115); Potassium 4.8 mmol/L (3.3-5.1); Sodium 143 mmol/L (135-145); Total Protein 7.4 g/dL (6.5-8.0)
[2023-07-08 17:19] VITALS: BP 158/92; PULSE 74; RESP 16; TEMP 36.5; O2SAT 97
[2023-07-08 17:43] LABS: Influenza A PCR NEGATIVE (Negative); Influenza B PCR NEGATIVE (Negative); Resp Syncy Virus RNA Qual PCR NEGATIVE (Negative); SARS COV2 PCR INHOUSE NEGATIVE (Negative)
[2023-07-08 17:50] LABS: Appearance Urine Clear; Color Urine Yellow; Glucose Urine UA Negative (Negative); Leukocyte Esterase Urine Negative (Negative); Nitrite Urine Negative (Negative); UMIC TRIGGER UACC YES; Urine Blood Moderate (2+) (Negative); Urine Ketones Negative (Negative); Urine Protein Negative (Neg-Trace)
[2023-07-08 17:55] LABS: Bacteria Urine None Seen (None Seen); Hyaline Casts Urine 0-2 /LPF (0-2); RBC Urine >20 /HPF (0-2); Squamous Epithelial Cell Urine 0-2 /HPF (0-2); WBC Urine 0-5 /HPF (0-5)
[2023-07-08] MEDS: cefuroxime axetiL 250 MG TABLET PO (18:20)
== END 2023-07-08 18:22 | disposition home or self-care (01) ==
PROVIDERS: Nurse Practitioner Family; Emergency Provider Emergency Medicine; PCP Physician Assistant Medical
DX: N30.91 Cystitis, unspecified with hematuria (principal); J02.9 Acute pharyngitis, unspecified; R30.0 Dysuria; R35.0 Frequency of micturition; Z79.899 Other long term (current) drug therapy; Z20.822 Contact with and (suspected) exposure to COVID-19; Z11.52 Encounter for screening for COVID-19
CPT/HCPCS: 0241U; 36415; 74176; 80053; 81001; 85025; 85610; 99284

== ENCOUNTER 2023-07-16 13:56 | Outpatient (AMB) | payer OTHER, SELFPAY ==
--- NOTE | 2023-07-16 14:09 | MHC.OFFVIS ---
Intake Vital Signs 07/16/23 14:10 Height 5 ft 1 in Weight 147 lb 9 oz BMI 27.9 BP 120/84 Blood Pressure Location Lt brachial Position Sitting Respiration 14 Pulse 112 H Pulse Source Pulse Oximeter Pulse Oximetry (%) 96 Oxygen Delivery Method Room Air Intake Visit Reasons: persistent cough Allergies morphine Allergy (Severe, Verified 07/16/23 14:40) tachycardia acetaminophen [Percocet] Allergy (Unknown, Verified 07/16/23 14:40) Unknown codeine [Tylenol-Codeine] Allergy (Unknown, Verified 07/16/23 14:40) Unknown oxycodone [Percocet] Allergy (Unknown, Verified 07/16/23 14:40) Unknown penicillin V Allergy (Unknown, Verified 07/16/23 14:40) Unknown Medication List - Last Reconciled 07/16/23 by Nkechi Hickey MD albuterol sulfate 90 mcg/actuation 2 inhalations inhalation Q4-6H PRN albuterol sulfate 2.5 mg (3 mL) inhalation Q4-6H PRN atorvastatin 20 mg PO DAILY azithromycin For 250 mg dose pack: take 500 mg today (day 1), then 250 mg for 4 days (days 2-5) PO cefuroxime axetil 250 mg PO BID 10 days diltiazem HCl 120 mg PO DAILY fluticasone propion-salmeterol 250-50 mcg/dose 1 ea PO BID ibuprofen 600 mg PO Q8H PRN montelukast 10 mg PO BEDTIME nebulizers As directed omeprazole 20 mg PO DAILY prednisone 20 mg PO BID 1 week Do you need a note to return to daycare/school/sports/work: No HPI persistent cough HPI Details CALLIE COMES BACK TODAY FOR A SHORT. FOLLOW-UP. HIS ACUTE EXACERBATION OF COPD IS RESOLVED. HE STILL HAS MILD RESIDUAL COUGH BUT NO EXPECTORATION. HE GETS TIRED AND SOME STRAIN IN THE BACK DUE TO COUGH. HAS NO FEVER OR CHILLS. HE IS ONLY SLIGHTLY HOARSE. HE THINKS HE IS BACK TO HIS USUAL BASELINE. [facility] Medical History Laryngitis COPD exacerbation [id number] condition COVID-19 Cough Allergic rhinitis COPD (chronic obstructive pulmonary disease) Social History Patient Tobacco Use Status: Never used Tobacco Review of Systems Const All systems reviewed & are unremarkable except as noted in HPI and below Eyes Reports no additional complaints ENT Reports no additional complaints Card Denies chest pain, Denies irregular heart rhythm and Denies leg edema Resp Reports as per HPI, Reports cough and Reports wheezing GI Reports heartburn (Controlled with omeprazole) Reports no additional complaints Musc Reports no additional complaints Skin/Breast Reports system reviewed and no additional complaints, except as documented Neuro Reports no additional complaints Psych Reports no additional complaints Endo Reports no additional complaints Aller/Immun Reports wheezing Physical Exam Vital Signs: Last Vital Signs Pulse 112 H 07/16/23 14:10 Resp 14 07/16/23 14:10 BP 120/84 07/16/23 14:10 Pulse Ox 96 07/16/23 14:10 Oxygen Delivery Method Room Air 07/16/23 14:10 BMI result Body Mass Index 27.9 His voice is hoarse., otherwise he looks stable and as usual. Const General: comfortable, no acute distress, alert and awake Orientation/consciousness: patient oriented x3 HEENT Head: Yes normal to inspection General nose exam: No nasal polyps present and No nasal discharge present Face and sinus: Yes sinuses nontender Mouth: oropharynx normal (Throat is very clear.) Throat: Yes posterior oropharynx normal Eyes General: appearance normal, both eyes and all related structures Neck Neck: Yes normal visual inspection, Yes no lymphadenopathy, Yes trachea midline and Yes no JVD Thyroid: Thyroid normal Chest Chest palpation & inspection: normal inspection of the chest, normal palpation of entire chest wall and no tenderness Resp Other: His chest examination shows increased AP diameter. Percussion note is slightly hyper-resonant. Breath sounds are distant with prolonged expiratory phase. No wheezes or crepitations are heard today. Cardio Palpation: normal PMI Rate: regular rate Rhythm: regular rhythm Heart sounds: no gallops and no murmurs GI Palpation (GI): Soft to palpation, nontender, No hepatosplenomegaly present and no masses Auscultation: normal bowel sounds Back/Spine/Pelvis Thoracic/Lumbar Spine: thoracic and lumbar spine normal to inspection Skin General skin exam: no rashes or lesions noted Neuro General: patient oriented x3 and no focal motor deficits Cranial nerves: Yes CN's II-XII intact bilaterally Extrem General: Yes normal to inspection, Yes no clubbing, cyanosis or edema and Yes no calf tenderness Psych Appearance: grossly normal and well kempt Speech and movement: Normal speech and movement present Assessment & Plan Assessment & Plan (1) COPD (chronic obstructive pulmonary disease): Comment: PATIENT DOES HAVE MODERATELY SEVERE CHRONIC OBSTRUCTIVE PULMONARY DISEASE. HE IS PRONE TO HAVE FREQUENT EXACERBATIONS AND RESPONDS TO ORAL PREDNISONE VERY QUICKLY. TX: CONTINUE ADVAIR 250-50 INHALATION B.I.D. ALBUTEROL HFA 2 PUFFS Q 4-6 HOURS P.R.N. WHEN OUTDOORS, AT HOME HE CAN USE ALBUTEROL SOLUTION IN THE NEBULIZER Q 4-6 HOURS ONLY P.R.N.. HE IS GIVEN A SUPPLY OF PREDNISONE TO KEEP ON HAND, AND USE IN CASE OF ACUTE EXACERBATION, IN ORDER TO AVOID EMERGENCY VISITS OF OR ADMISSIONS. Code(s): J44.9 - Chronic obstructive pulmonary disease, unspecified Plan: ABOVE (2) Allergic rhinitis: Comment: ALLERGIC RHINITIS, CHRONIC, MILD, REMAINS CONTROLLED. Code(s): J30.9 - Allergic rhinitis, unspecified Plan: CONTINUE MONTELUKAST 10 MG DAILY AND FLONASE-50 1 SPRAY IN EACH NOSTRIL DAILY. (3) Laryngitis: Comment: HAS DEVELOPED HOARSENESS ALONG WITH INCREASED COUGH, THERE IS NO OBVIOUS THRUSH,OR ACUTE INFECTION IN THE THROAT. Code(s): J04.0 - Acute laryngitis Plan: ADVISED TO GARGLE THE THROAT THOROUGHLY AFTER USING WIXELA Coding Level of Care Code Est Pt Level 3 (05633) Diagnoses COPD (chronic obstructive pulmonary disease) J44.9 Allergic rhinitis J30.9 Laryngitis J04.0
[2023-07-16 14:10] VITALS: BP 120/84; PULSE 112; RESP 14; O2SAT 96; BMI 27.9
== END 2023-07-16 14:46 | disposition home or self-care (01) ==
PROVIDERS: PCP Physician Assistant Medical; Visit Provider Internal Medicine
DX: J44.9 Chronic obstructive pulmonary disease, unspecified (principal); J30.9 Allergic rhinitis, unspecified; J04.0 Acute laryngitis
CPT/HCPCS: 99213

== ENCOUNTER → 2023-07-16 13:56 | Outpatient (BNVA) | payer OTHER, SELFPAY | PROVIDERS: PCP Physician Assistant Medical; Visit Provider Internal Medicine | DX: J44.9 Chronic obstructive pulmonary disease, unspecified (principal); J30.9 Allergic rhinitis, unspecified; J04.0 Acute laryngitis | CPT/HCPCS: 99212 ==

== ENCOUNTER 2023-08-03 11:49 | Emergency (ER) | payer OTHER, SELFPAY ==
--- NOTE | ~2023-08-03 | XR_ITS ---
EXAMINATION: XR CHEST CLINICAL INFORMATION: Cough COMPARISON: Chest radiograph 07/05/2023 TECHNIQUE: Frontal view of the chest was obtained. FINDINGS: Redemonstration of subpleural reticulation and possible fibrosis right greater than left with no focal consolidation, edema, or effusion. Stable cardiomediastinal silhouette. XR/XR chest 1V IMPRESSION: 1. No acute cardiopulmonary findings. 2. Chronic interstitial lung disease.
[2023-08-03 12:38] VITALS: BP 148/97; PULSE 117; RESP 18; TEMP 37.1; O2SAT 98; BMI 26.6
--- NOTE | 2023-08-03 12:41 | ED_ITS ---
HPI - URI/Sore Throat General Chief Complaint: GI Bleed Stated Complaint: Cough Diff Breathing Pain L Side Related Data Home Medications Medication Instructions Recorded Confirmed atorvastatin 20 mg tablet 20 mg PO DAILY 02/23/21 07/05/23 omeprazole 20 mg capsule,delayed 20 mg PO DAILY 02/23/21 07/05/23 release diltiazem HCl 120 mg 120 mg PO DAILY 08/09/21 07/05/23 capsule,extended release 24 hr nebulizers 12/07/22 07/05/23 Previous Rx's Medication Instructions Recorded albuterol sulfate 2.5 mg/3 mL 2.5 mg (3 mL) inhalation Q4-6H PRN 11/08/22 (0.083 %) solution for nebulization shortness of breath or wheezing #180 mL fluticasone 250 mcg-salmeterol 50 1 ea PO BID #180 ea 11/10/22 mcg/dose blistr powdr for inhalation albuterol sulfate 90 mcg/actuation 2 inh inhalation Q4-6H PRN 03/20/23 breath activated powder inhaler shortness of breath or wheezing #1 ea ibuprofen 600 mg tablet 600 mg PO Q8H PRN fever or pain 03/20/23 #30 tabs montelukast 10 mg tablet 10 mg PO BEDTIME #90 tabs 06/26/23 azithromycin 250 mg tablet See Rx Instructions PO .COMPLEX #6 07/05/23 tabs cefuroxime axetil 250 mg tablet 250 mg PO BID 10 days #20 tabs 07/08/23 prednisone 20 mg tablet 20 mg PO BID copd excerbation 1 07/19/23 week #14 tabs Allergies Allergy/AdvReac Type Severity Reaction Status Date / Time morphine Allergy Severe tachycardia Verified 07/16/23 14:40 acetaminophen [Percocet] Allergy Unknown Unknown Verified 07/16/23 14:40 codeine [Tylenol-Codeine] Allergy Unknown Unknown Verified 07/16/23 14:40 oxycodone [Percocet] Allergy Unknown Unknown Verified 07/16/23 14:40 penicillin V Allergy Unknown Unknown Verified 07/16/23 14:40 [facility] Past Medical History Medical History Laryngitis COPD exacerbation [id number] condition COVID-19 Cough Allergic rhinitis COPD (chronic obstructive pulmonary disease) Social History Social History Patient Tobacco Use Status: Never used Tobacco Advance Directives: No Advance Directives Information Provided: No Physical Exam 2 Vital Signs: Vital Signs: Last Vital Signs Temp 98.7 F 08/03/23 12:38 Pulse 117 H 08/03/23 12:38 Resp 18 08/03/23 12:38 BP 148/97 H 08/03/23 12:38 Pulse Ox 98 08/03/23 12:38 O2 Del Method Room Air 08/03/23 12:38 BMI result Body Mass Index 26.6 Course Course Course Narrative: This is a rapid medical exam: Additional HPI, ROS, PE not included below will be deferred to primary provider. Coughing for a month with left lateral chest pain. Large amount BRBPR with moving his bowels. Hx hemorrhoids with hemorrhoid surgery. Has been seen here on 07/08 for complaints of sore throat/hoarseness Medical Decision Making Lab Data 08/03/23 13:07 08/03/23 13:07 Labs: Lab Results 08/03/23 Range/Units 13:07 WBC 9.9 (4.8-10.8) X10*3/uL RBC 5.04 (4.60-5.80) X10*6/uL Hgb 15.3 (14.0-18.0) g/dl Hct 46.1 (42.0-52.0) % MCV 91.5 (80.0-98.0) fL MCH 30.4 (27.0-33.0) pg MCHC 33.2 (31.0-36.0) g/dl RDW 13.6 (11.0-16.0) % Plt Count 175 D (160-400) X10*3/uL MPV 9.0 L (9.4-12.4) fL Immature Gran % (Auto) 0.9 H (0.0-0.4) % Neut % (Auto) 78.9 H (45-73) % Lymph % (Auto) 5.4 L (20-40) % [place] % (Auto) 12.0 H (2-11) % Eos % (Auto) 2.3 (0-4) % Baso % (Auto) 0.5 (0-2) % Lymph # (Auto) 0.5 L (1.2-4.9) X10*3/uL [place] # (Auto) 1.2 (0.1-1.2) X10*3/uL Eos # (Auto) 0.2 (0.0-0.4) X10*3/uL Baso # (Auto) 0.1 (0.0-0.2) X10*3/uL Abs Immat Gran (auto) 0.09 H (0.00-0.03) X10*3/uL Absolute Neuts (auto) 7.8 (2.0-8.3) x10*3/uL Absolute Nucleated RBC 0.000 (0.0-0.012) X10*3/uL Nucleated RBC % (auto) 0.0 (0.0-0.2) /100WBC Sodium 140 (135-145) mmol/L Potassium 4.8 (3.3-5.1) mmol/L Chloride 104 (96-108) mmol/L Carbon Dioxide 28 (22-29) mmol/L Anion Gap 13 (12-20) BUN 13 (9-16) mg/dL Creatinine 0.85 (0.5-1.4) mg/dL Estim Creat Clear Calc 62.3 Estimated GFR > 60 Random Glucose 98 (60-115) mg/dL Calcium 9.6 (8.4-10.2) mg/dL Total Bilirubin 1.2 H (0.0-1.0) mg/dL AST 18 (5-37) U/L ALT 17 (0-40) U/L Alkaline Phosphatase 92 (39-117) U/L Troponin I High Sens 4.4 D (<3.5-35.0) ng/L Total Protein 7.0 (6.5-8.0) g/dL Albumin 4.1 (3.5-5.0) g/dL Discharge Plan Discharge Clinical Impression: Left before treatment completed Patient Disposition: Left W/O Completing Treatment Prescriptions: No Action fluticasone propion-salmeterol 250-50 mcg/dose blister with device 1 ea PO BID Qty: 180 0RF montelukast 10 mg tablet 10 mg PO BEDTIME Qty: 90 0RF prednisone 20 mg tablet 20 mg PO BID 7 Days Qty: 14 2RF cefuroxime axetil 250 mg tablet 250 mg PO BID 10 Days Qty: 20 0RF albuterol sulfate 90 mcg/actuation aerosol powdr breath activated 2 inh inhalation Q4-6H PRN (Reason: shortness of breath or wheezing) Qty: 1 0RF ibuprofen 600 mg tablet 600 mg PO Q8H PRN (Reason: fever or pain) Qty: 30 0RF omeprazole 20 mg capsule,delayed release(DR/EC) 20 mg PO DAILY atorvastatin 20 mg tablet 20 mg PO DAILY diltiazem HCl 120 mg capsule,extended release 24hr 120 mg PO DAILY (DME) [place]izers [facility] [place] Inst[place] .Route Rx Instructions: As directed albuterol sulfate 2.5 mg /3 mL (0.083 %) solution for nebulization 2.5 mg inhalation Q4-6H PRN (Reason: shortness of breath or wheezing) Qty: 180 2RF azithromycin 250 mg tablet See Rx Instructions PO .COMPLEX Qty: 6 0RF Rx Instructions: For 250 mg dose pack: take 500 mg today (day 1), then 250 mg for 4 days (days 2-5) PO Discharge Date/Time: 08/03/23 20:36
[2023-08-03 13:14] LABS: MANUAL DIFF FLAG NO
[2023-08-03 13:19] LABS: Basophils Absolute Auto 0.1 X10*3/uL (0.0-0.2); Basophils Percent Auto 0.5 % (0-2); Eosinophils Absolute Auto 0.2 X10*3/uL (0.0-0.4); Eosinophils Percent Auto 2.3 % (0-4); Hematocrit 46.1 % (42.0-52.0); Hemoglobin 15.3 g/dl (14.0-18.0); Imm Gran Abs Auto 0.09 X10*3/uL (0.00-0.03); Imm Gran Pct Auto 0.9 % (0.0-0.4); Lymphocytes Absolute Auto 0.5 X10*3/uL (1.2-4.9); Lymphocytes Percent Auto 5.4 % (20-40); Mean Corpuscular HGB Conc 33.2 g/dl (31.0-36.0); Mean Corpuscular Hemoglobin 30.4 pg (27.0-33.0); Mean Corpuscular Volume 91.5 fL (80.0-98.0); Monocytes Absolute Auto 1.2 X10*3/uL (0.1-1.2); Neutrophils Absolute Auto 7.8 x10*3/uL (2.0-8.3); Neutrophils Percent Auto 78.9 % (45-73); Platelet Count 175 X10*3/uL (160-400); Red Blood Count 5.04 X10*6/uL (4.60-5.80); Red Cell Distribution Width 13.6 % (11.0-16.0); White Blood Count 9.9 X10*3/uL (4.8-10.8)
[2023-08-03 13:32] LABS: Alanine Aminotransferase 17 U/L (0-40); Albumin Level 4.1 g/dL (3.5-5.0); Alkaline Phosphatase 92 U/L (39-117); Anion Gap 13 (12-20); Aspartate Amino Transferase 18 U/L (5-37); Bilirubin Total 1.2 mg/dL (0.0-1.0); Blood Urea Nitrogen 13 mg/dL (9-16); Calcium 9.6 mg/dL (8.4-10.2); Carbon Dioxide 28 mmol/L (22-29); Chloride 104 mmol/L (96-108); Creatinine Clr Calc Pharmacy 62.3; Estimated Glomerular Filt Rate > 60; Glucose Random 98 mg/dL (60-115); Potassium 4.8 mmol/L (3.3-5.1); Sodium 140 mmol/L (135-145)
[2023-08-03 13:36] LABS: Troponin-I High Sensitivity 4.4 ng/L (<3.5-35.0)
--- NOTE | 2023-08-03 20:36 | PC.NURSE ---
Called in WR with no answers
== END 2023-08-03 20:36 | disposition left against medical advice (07) ==
PROVIDERS: Nurse Practitioner Family; Emergency Provider Emergency Medicine; PCP Physician Assistant Medical
DX: R05.9 Cough, unspecified (principal); K62.5 Hemorrhage of anus and rectum; J44.9 Chronic obstructive pulmonary disease, unspecified
CPT/HCPCS: 36415; 71045; 80053; 84484; 85025; 99281; 99283

== ENCOUNTER 2023-09-05 14:21 | Outpatient (AMB) | payer OTHER, SELFPAY ==
[2023-09-05 14:32] VITALS: BP 120/78; PULSE 105; O2SAT 97; BMI 28.2
--- NOTE | 2023-09-05 14:32 | A.OFFVIS_ITS ---
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: No Allergies morphine Allergy (Severe, Verified 09/05/23 14:57) tachycardia acetaminophen [Percocet] Allergy (Unknown, Verified 09/05/23 14:57) Unknown codeine [Tylenol-Codeine] Allergy (Unknown, Verified 09/05/23 14:57) Unknown oxycodone [Percocet] Allergy (Unknown, Verified 09/05/23 14:57) Unknown penicillin V Allergy (Unknown, Verified 09/05/23 14:57) Unknown Medication List - Last Reconciled 09/05/23 by Nkechi Hickey MD albuterol sulfate 90 mcg/actuation 2 inhalations inhalation Q4-6H PRN albuterol sulfate 2.5 mg (3 mL) inhalation Q4-6H PRN atorvastatin 20 mg PO DAILY diltiazem HCl CD 120 mg PO DAILY fluticasone propion-salmeterol 250-50 mcg/dose 1 ea PO BID ibuprofen 800 mg PO .prn montelukast 10 mg PO BEDTIME nebulizers As directed omeprazole 20 mg PO DAILY Do you need a note to return to daycare/school/sports/work: No HPI HPI copd: Details: 72 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 HE SAY IS IS COUGH IS ONLY MINIMAL IN THE MORNING HOURS. REST OF THE DAY HE IS COMFORTABLE. HE GETS SHORT OF BREATH WHEN HE WALKS OUTDOORS OR WALKS FAST BUT NOT AT REST. HE IS USING HIS INHALERS REGULARLY. HE HAS NOT ON ANY ORAL PREDNISONE AT THIS TIME. [facility] Medical History Laryngitis COPD exacerbation [id number] condition COVID-19 Cough Allergic rhinitis COPD (chronic obstructive pulmonary disease) Social History Patient Tobacco Use Status: Never used Tobacco Review of Systems Const All systems reviewed & are unremarkable except as noted in HPI and below Eyes Reports no additional complaints ENT Reports no additional complaints Card Denies chest pain, Denies irregular heart rhythm and Denies leg edema Resp Reports as per HPI, Reports cough and Reports wheezing GI Reports heartburn (Controlled with omeprazole) Reports no additional complaints Musc Reports no additional complaints Skin/Breast Reports system reviewed and no additional complaints, except as documented Neuro Reports no additional complaints Psych Reports no additional complaints Endo Reports no additional complaints Aller/Immun Reports wheezing Physical Exam Vital Signs: Last Vital Signs Pulse 105 H 09/05/23 14:32 BP 120/78 09/05/23 14:32 Pulse Ox 97 09/05/23 14:32 Oxygen Delivery Method Room Air 09/05/23 14:32 BMI result Body Mass Index 28.2 His voice is hoarse., otherwise he looks stable and as usual. Const General: comfortable, no acute distress, alert and awake Orientation/consciousness: patient oriented x3 HEENT Head: Yes normal to inspection General nose exam: No nasal polyps present and No nasal discharge present Face and sinus: Yes sinuses nontender Mouth: oropharynx normal (Throat is very clear.) Throat: Yes posterior oropharynx normal Eyes General: appearance normal, both eyes and all related structures Neck Neck: Yes normal visual inspection, Yes no lymphadenopathy, Yes trachea midline and Yes no JVD Thyroid: Thyroid normal Chest Chest palpation & inspection: normal inspection of the chest, normal palpation of entire chest wall and no tenderness Resp Other: His chest examination shows increased AP diameter. Percussion note is slightly hyper-resonant. Breath sounds are distant with prolonged expiratory phase. No wheezes or crepitations are heard today. Cardio Palpation: normal PMI Rate: regular rate Rhythm: regular rhythm Heart sounds: no gallops and no murmurs GI Palpation (GI): Soft to palpation, nontender, No hepatosplenomegaly present and no masses Auscultation: normal bowel sounds Back/Spine/Pelvis Thoracic/Lumbar Spine: thoracic and lumbar spine normal to inspection Skin General skin exam: no rashes or lesions noted Neuro General: patient oriented x3 and no focal motor deficits Cranial nerves: Yes CN's II-XII intact bilaterally Extrem General: Yes normal to inspection, Yes no clubbing, cyanosis or edema and Yes no calf tenderness Psych Appearance: grossly normal and well kempt Speech and movement: Normal speech and movement present Assessment & Plan Assessment & Plan (1) COPD (chronic obstructive pulmonary disease): Comment: PATIENT DOES HAVE MODERATELY SEVERE CHRONIC OBSTRUCTIVE PULMONARY DISEASE. HE IS PRONE TO HAVE FREQUENT EXACERBATIONS AND RESPONDS TO ORAL PREDNISONE VERY QUICKLY. AT THIS TIME HE IS STABLE AND BACK TO HIS BASELINE. Code(s): J44.9 - Chronic obstructive pulmonary disease, unspecified Category: Medical Plan: TX: CONTINUE ADVAIR 250-50 INHALATION B.I.D. ALBUTEROL HFA 2 PUFFS Q 4-6 HOURS P.R.N. WHEN OUTDOORS, AT HOME HE CAN USE ALBUTEROL SOLUTION IN THE NEBULIZER Q 4-6 HOURS ONLY P.R.N.. * HE IS GIVEN A SUPPLY OF PREDNISONE TO KEEP ON HAND, AND USE IN CASE OF ACUTE EXACERBATION, IN ORDER TO AVOID EMERGENCY VISITS OF OR ADMISSIONS. (2) Allergic rhinitis: Comment: ALLERGIC RHINITIS, CHRONIC, MILD, REMAINS CONTROLLED. Code(s): J30.9 - Allergic rhinitis, unspecified Category: Medical Plan: FLONASE NASAL SPRAY IN EACH NOSTRIL ONCE A DAY MONTELUKAST 10 MG DAILY. (3) Cough: Comment: THE COUGH WAS DUE TO POST COVID -19 INFECTION AND HIS AGGRAVATED COPD. NOW THE COUGH IS MINIMAL . Code(s): R05 - Cough Category: Medical Plan: NO NEED OF ANY COUGH MEDICINE. Coding Level of Care Code Est Pt Level 3 (07793) Diagnoses COPD (chronic obstructive pulmonary disease) J44.9 Allergic rhinitis J30.9 Cough R05
== END 2023-09-05 15:03 | disposition home or self-care (01) ==
PROVIDERS: PCP Physician Assistant Medical; Visit Provider Internal Medicine
DX: J44.9 Chronic obstructive pulmonary disease, unspecified (principal); J30.9 Allergic rhinitis, unspecified; R05.9 Cough, unspecified
CPT/HCPCS: 99213

== ENCOUNTER → 2023-09-05 14:21 | Outpatient (BNVA) | payer OTHER, SELFPAY | PROVIDERS: PCP Physician Assistant Medical; Visit Provider Internal Medicine | DX: J44.9 Chronic obstructive pulmonary disease, unspecified (principal); J30.9 Allergic rhinitis, unspecified; R05.9 Cough, unspecified | CPT/HCPCS: 99212 ==

== ENCOUNTER 2023-11-22 13:48 | Outpatient (AMB) | payer OTHER, SELFPAY ==
[2023-11-22 13:59] VITALS: BP 102/82; PULSE 71; O2SAT 97; BMI 28.3
--- NOTE | 2023-11-22 13:59 | MHC.OFFVIS ---
Vital Signs 11/22/23 13:59 Height 5 ft 1 in Weight 149 lb 14.629 oz BMI 28.3 BP 102/82 Blood Pressure Location Lt brachial Position Sitting Pulse 71 Pulse Source Pulse Oximeter Pulse Oximetry (%) 97 Oxygen Delivery Method Room Air Intake Visit Reasons: COPD Intake Note: pt is here for follow up and states heis feeling good. Wixela is causing him an issue, and a new inhaler needs to be ordered. [employer] Supervisor Required: No Allergies morphine Allergy (Severe, Verified 11/22/23 14:18) tachycardia acetaminophen [Percocet] Allergy (Unknown, Verified 11/22/23 14:18) Unknown codeine [Tylenol-Codeine] Allergy (Unknown, Verified 11/22/23 14:18) Unknown oxycodone [Percocet] Allergy (Unknown, Verified 11/22/23 14:18) Unknown penicillin V Allergy (Unknown, Verified 11/22/23 14:18) Unknown Medication List - Last Reconciled 11/22/23 by Nkechi Hickey MD albuterol sulfate 90 mcg/actuation 2 inhalations inhalation Q4-6H PRN albuterol sulfate 2.5 mg (3 mL) inhalation Q4-6H PRN atorvastatin 20 mg PO DAILY diltiazem HCl CD 120 mg PO DAILY fluticasone propion-salmeterol 250-50 mcg/dose 1 ea PO BID ibuprofen 800 mg PO .prn montelukast 10 mg PO BEDTIME nebulizers As directed omeprazole 20 mg PO DAILY Do you need a note to return to daycare/school/sports/work: No HPI HPI COPD: Details: 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 HE IS PRONE TO HAVE FREQUENT ACUTE EXACERBATIONS BUT SINCE HIS LAST 2 VISITS HE HAS BEEN RELATIVELY STABLE. HE DID NOT HAVE TO USE ORAL PREDNISONE SINCE THE LAST VISIT. HE HAS ONLY MILD NASAL CONGESTION ONCE IN A WHILE. HE HAS SOME ISSUE WITH WIXELA, SAY IS THAT IT CAUSES SOME IRRITATION IN THE THROAT AND COUGH. SOMETIMES HE USES IT ONLY ONCE A DAY. BUT OVERALL HIS PULMONARY STATUS HAS REMAINED VERY STABLE AND CONTROLLED. [facility] Medical History Laryngitis COPD exacerbation [id number] condition COVID-19 Cough Allergic rhinitis COPD (chronic obstructive pulmonary disease) Social History Patient Tobacco Use Status: Never used Tobacco Review of Systems Const All systems reviewed & are unremarkable except as noted in HPI and below Eyes Reports no additional complaints ENT Reports no additional complaints Card Denies chest pain, Denies irregular heart rhythm and Denies leg edema Resp Reports as per HPI, Reports cough and Reports wheezing GI Reports heartburn (Controlled with omeprazole) Reports no additional complaints Musc Reports no additional complaints Skin/Breast Reports system reviewed and no additional complaints, except as documented Neuro Reports no additional complaints Psych Reports no additional complaints Endo Reports no additional complaints Aller/Immun Reports wheezing Physical Exam Vital Signs: Last Vital Signs Pulse 71 11/22/23 13:59 BP 102/82 11/22/23 13:59 Pulse Ox 97 11/22/23 13:59 Oxygen Delivery Method Room Air 11/22/23 13:59 BMI result Body Mass Index 28.3 His voice is hoarse., otherwise he looks stable and as usual. Const General: comfortable, no acute distress, alert and awake Orientation/consciousness: patient oriented x3 HEENT Head: Yes normal to inspection General nose exam: No nasal polyps present and No nasal discharge present Face and sinus: Yes sinuses nontender Mouth: oropharynx normal (Throat is very clear.) Throat: Yes posterior oropharynx normal Eyes General: appearance normal, both eyes and all related structures Neck Neck: Yes normal visual inspection, Yes no lymphadenopathy, Yes trachea midline and Yes no JVD Thyroid: Thyroid normal Chest Chest palpation & inspection: normal inspection of the chest, normal palpation of entire chest wall and no tenderness Resp Other: His chest examination shows increased AP diameter. Percussion note is slightly hyper-resonant. Breath sounds are distant with prolonged expiratory phase. No wheezes or crepitations are heard today. Cardio Palpation: normal PMI Rate: regular rate Rhythm: regular rhythm Heart sounds: no gallops and no murmurs GI Palpation (GI): Soft to palpation, nontender, No hepatosplenomegaly present and no masses Auscultation: normal bowel sounds Back/Spine/Pelvis Thoracic/Lumbar Spine: thoracic and lumbar spine normal to inspection Skin General skin exam: no rashes or lesions noted Neuro General: patient oriented x3 and no focal motor deficits Cranial nerves: Yes CN's II-XII intact bilaterally Extrem General: Yes normal to inspection, Yes no clubbing, cyanosis or edema and Yes no calf tenderness Psych Appearance: grossly normal and well kempt Speech and movement: Normal speech and movement present Assessment & Plan Assessment & Plan (1) COPD (chronic obstructive pulmonary disease): Comment: PATIENT DOES HAVE MODERATELY SEVERE CHRONIC OBSTRUCTIVE PULMONARY DISEASE. HE IS PRONE TO HAVE FREQUENT EXACERBATIONS AND RESPONDS TO ORAL PREDNISONE VERY QUICKLY. AT THIS TIME HE IS STABLE AND BACK TO HIS BASELINE. DID NOT HAVE ANY ACUTE EXACERBATION IN THE LAST 3 MONTHS. Code(s): J44.9 - Chronic obstructive pulmonary disease, unspecified Category: Medical Plan: DISCUSSED ABOUT USE OF WIXELA. I TOLD HIM THAT THIS IS THE BEST MEDICINE FOR HIM AT THIS TIME. HE SHOULD RINSE HIS MOUTH AND THROAT AFTER USING WIXELA. IF SYMPTOMS ARE WELL CONTROLLED THEN HE CAN CUT IT DOWN TO ONLY ONCE A DAY. USE ALBUTEROL SOLUTION IN THE NEBULIZER OR ALBUTEROL HFA Q 6 HOURS P.R.N. FOR ANY ACUTE SYMPTOMS (2) Allergic rhinitis: Comment: ALLERGIC RHINITIS, CHRONIC, REMAINS CONTROLLED. Code(s): J30.9 - Allergic rhinitis, unspecified Category: Medical Plan: CONTINUE MONTELUKAST 10 MG DAILY OTC ALLERGY MEDS SUCH CLARITIN 10 MG CETIRIZINE 10 MG, ONCE A DAY ONLY P.R.N. Coding Level of Care Code Est Pt Level 3 (34719) Diagnoses COPD (chronic obstructive pulmonary disease) J44.9 Allergic rhinitis J30.9
== END 2023-11-22 14:18 | disposition home or self-care (01) ==
PROVIDERS: PCP Physician Assistant Medical; Visit Provider Internal Medicine
DX: J44.9 Chronic obstructive pulmonary disease, unspecified (principal); J30.9 Allergic rhinitis, unspecified
CPT/HCPCS: 99213

== ENCOUNTER → 2023-11-22 13:48 | Outpatient (BNVA) | payer OTHER, SELFPAY | PROVIDERS: PCP Physician Assistant Medical; Visit Provider Internal Medicine | DX: J44.9 Chronic obstructive pulmonary disease, unspecified (principal); J30.9 Allergic rhinitis, unspecified | CPT/HCPCS: 99212 ==

== ENCOUNTER 2023-12-25 18:57 | Emergency (ER) | payer OTHER, SELFPAY ==
[2023-12-25 19:01] VITALS: BP 147/97; PULSE 105; RESP 17; TEMP 36.6; O2SAT 97; BMI 28.3
--- NOTE | 2023-12-25 20:47 | ED.ALLEREA ---
HPI - Allergic Reaction General Chief complaint: Allergic Reaction Stated complaint: Hives ? allergic reaction Time Seen by Provider: 12/25/23 19:58 Source: patient and family Mode of arrival: ambulatory Limitations: no limitations History of Present Illness ED Provider: Dr. Guillermina Gómez HPI narrative: Patient comes to the emergency room complaining of an allergic reaction to fluticasone propionate and salmeterol inhaler. Patient states that he tried it for the 1st time today, within 30 minutes he started developing diffuse hives and intense itching. No chest pain or shortness of breath Related Data Home Medications ?Medication ?Instructions ?Recorded ?Confirmed atorvastatin 20 mg tablet 20 mg PO DAILY 02/23/21 11/22/23 omeprazole 20 mg capsule,delayed 20 mg PO DAILY 02/23/21 11/22/23 release diltiazem HCl 120 mg 120 mg PO DAILY 08/09/21 11/22/23 capsule,extended release 24 hr nebulizers 12/07/22 11/22/23 ibuprofen 800 mg tablet 800 mg PO .prn 09/05/23 11/22/23 Previous Rx's ?Medication ?Instructions ?Recorded albuterol sulfate 2.5 mg/3 mL 2.5 mg (3 mL) inhalation Q4-6H PRN 11/08/22 (0.083 %) solution for nebulization shortness of breath or wheezing #180 mL albuterol sulfate 90 mcg/actuation 2 inh inhalation Q4-6H PRN 03/20/23 breath activated powder inhaler shortness of breath or wheezing #1 ea montelukast 10 mg tablet 10 mg PO BEDTIME #90 tabs 09/17/23 fluticasone 250 mcg-salmeterol 50 1 ea PO BID #180 ea 12/13/23 mcg/dose blistr powdr for inhalation Allergies Allergy/AdvReac Type Severity Reaction Status Date / Time morphine Allergy Severe tachycardia Verified 12/25/23 19:05 acetaminophen [Percocet] Allergy Unknown Unknown Verified 12/25/23 19:05 codeine [Tylenol-Codeine] Allergy Unknown Unknown Verified 12/25/23 19:05 oxycodone [Percocet] Allergy Unknown Unknown Verified 12/25/23 19:05 penicillin V Allergy Unknown Unknown Verified 12/25/23 19:05 diphenhydramine AdvReac Cough Verified 12/25/23 21:16 [From Benadryl] Review of Systems Review of Systems: Constitutional : No Weight loss, No Fever, No Chills, No Night Sweats, No Fatigue, No Malaise ENT/Mouth : No Hearing loss, No Ear Pain, No Nasal Congestion, No Sinus Pain, No Hoarseness, No sore throat, No Rhinorrhea, No Swallowing Difficulty Eyes: No Eye Pain, No Swelling, No Redness, No Foreign Body, No Discharge, No Vision Changes Cardiovascular : No Chest Pain, No SOB, No Dyspnea on Exertion, No Orthopnea, No Edema, No Palpitations Respiratory : No Cough, No Sputum, No Wheezing, No Smoke Exposure, No Dyspnea Gastrointestinal : No Nausea, No Vomiting, No Diarrhea, No Constipation, No abdominal Pain, No Hematochezia, No Melena Genitourinary : no irregular bleeding, No Dysuria, No Urinary Frequency, No Hematuria, No Urinary Incontinence, No Urgency, No Flank Pain, No Urinary Flow Changes, No Hesitancy Musculoskeletal : No joint pain, No Myalgias, No Joint Swelling Skin : Complaining of itchy hives Neuro : No Weakness, No Numbness, No Paresthesias, No Loss of Consciousness, No Dizziness, No Headache Psych : No Anxiety/Panic, No Depression, No SI/HI/AH/VH, No Social Issues, Heme/Lymph: No Bruising, No Bleeding,No Lymphadenopathy Endocrine : No Polyuria, No Polydipsia, No Temperature Intolerance PMFSH Past Medical History Medical History Laryngitis COPD exacerbation 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 Oriented X3. No acute distress. Eyes: Pupils equal, round and reactive to light. ENT: Pharynx normal. No angioedema Neck: Normal inspection. Neck supple. No lymph nodes noted. No crepitus CVS: Normal heart rate and rhythm. Pulses normal. Normal S1 and S2 Respiratory: No respiratory distress. Breath sounds normal. No Wheezing. No rales Abdomen: Soft and nontender. No rigidity. No distention. Skin: Diffuse hives, Skin warm and dry. Extremities: No lower extremity edema. No Lacerations. No Rash Neuro: Oriented X 3. No motor deficit. No sensory deficit. Moving all extremities. No slurred speech. CN 2 through 12 grossly intact Psych: calm, cooperative, normal affect Medications Administered Discontinued Medications Generic Name Dose Route Start Last Admin Trade Name Leninq PRN Reason Stop Dose Admin Diphenhydramine HCl 50 mg 12/25/23 20:46 12/25/23 21:06 Diphenhydramine Hcl 50 Mg/Ml Vial IVPUSH 12/25/23 20:47 50 mg ONCE ONE Administration Famotidine 20 mg 12/25/23 20:46 12/25/23 21:06 Famotidine/Pf 20 Mg/2 Ml Vial IVPUSH 12/25/23 20:47 20 mg ONCE ONE Administration Sodium Chloride 1,000 mls @ 999 mls/hr 12/25/23 20:46 12/25/23 22:02 Ns IVCONT 12/25/23 21:46 Infused .Q1H1M ONE Infusion Methylprednisolone Sodium Succinate 125 mg 12/25/23 20:46 12/25/23 21:05 Methylprednisolone Sod Succ 125 Mg/2 Ml Vial IVPUSH 12/25/23 20:47 125 mg ONCE ONE Administration Medical Decision Making Medical Decision Making MDM Narrative: Patient received IV fluids, IV Solu-Medrol, Pepcid and Benadryl. After the IV treatment, patient has hives resolved. -patient states that he feels completely back to normal, no itching. 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 Patient agrees with plan. -patient being discharged in stable condition Discharge Plan Discharge Clinical Impression: Allergic drug reaction Patient Disposition: Home, Self-Care Instructions: General Allergic Reaction (ED) Additional Instructions: Please follow-up with your primary care physician tomorrow. If you have any worsening or new symptoms, please return to the emergency room or call 911 Prescriptions: No Action montelukast 10 mg tablet 10 mg PO BEDTIME Qty: 90 0RF fluticasone propion-salmeterol 250-50 mcg/dose blister with device 1 ea PO BID Qty: 180 0RF albuterol sulfate 90 mcg/actuation aerosol powdr breath activated 2 inh inhalation Q4-6H PRN (Reason: shortness of breath or wheezing) Qty: 1 0RF omeprazole 20 mg capsule,delayed release(DR/EC) 20 mg PO DAILY atorvastatin 20 mg tablet 20 mg PO DAILY diltiazem HCl 120 mg capsule,extended release 24hr 120 mg PO DAILY (DME) nebulizers Misc See Rx Instructions .Route Rx Instructions: As directed albuterol sulfate 2.5 mg /3 mL (0.083 %) solution for nebulization 2.5 mg inhalation Q4-6H PRN (Reason: shortness of breath or wheezing) Qty: 180 2RF ibuprofen 800 mg tablet 800 mg PO .prn Print Language: Sudanese
[2023-12-25] MEDS: 0.9 % Sodium Chloride 1,000 ML 999 ML IVCONT (21:02)
[2023-12-25 21:05] VITALS: BP 168/102; PULSE 77; RESP 18; TEMP 36.6; O2SAT 97
[2023-12-25] MEDS: methylPREDNISolone Sod Succ 125 MG/2 ML VIAL IVPUSH (21:05)
[2023-12-25] MEDS: Famotidine/PF 20 MG/2 ML VIAL IVPUSH (21:06)
[2023-12-25] MEDS: diphenhydrAMINE HCL 50 MG/ML VIAL IVPUSH (21:06)
--- NOTE | 2023-12-25 21:16 | PC.NURSE ---
pt was medicated with Benadryl and after receiving the full dose pt stated to cough and felt tighness in his throat. pt family member present and after told he was receiving the medication the daughter mentioned that other family members are allergic to benadryl. pt sat 96% Dr Huddleston is made aware.
--- NOTE | 2023-12-25 22:41 | PC.NURSE ---
pt medicated per JUL- pt developed a cough after the administration of benadryl. MD notified- no further orders- pt cough lasted approx 30minutes pt SpO2 maintained at 95-98% on RA, HR 78-92 BPM. pt hives on bilateral FA and chest have subsided- pt verbalizes improvement- awaiting provider re-eval- benadryl allg added to pt medical record.
== END 2023-12-25 23:30 | disposition home or self-care (01) ==
PROVIDERS: Emergency Provider Emergency Medicine; PCP Physician Assistant Medical
DX: L50.0 Allergic urticaria (principal); T38.0X5A Adverse effect of glucocorticoids and synthetic analogues, initial encounter; T48.6X5A Adverse effect of antiasthmatics, initial encounter; Y92.009 Unspecified place in unspecified non-institutional (private) residence as the place of occurrence of the external cause; J44.9 Chronic obstructive pulmonary disease, unspecified
CPT/HCPCS: 96361; 96374; 96375; 99283; 99284; J1200; J2919

== ENCOUNTER 2023-12-28 01:34 | Emergency (ER) | payer OTHER, SELFPAY ==
[2023-12-28 01:41] VITALS: BP 166/100; PULSE 74; RESP 18; TEMP 36.6; O2SAT 96; BMI 28.0
--- NOTE | 2023-12-28 02:38 | ED_ITS ---
HPI - Skin/Abscess/Foreign Bdy General Chief complaint: Skin/Abscess/Foreign Body Stated complaint: rash Time Seen by Provider: 12/28/23 02:31 Source: patient Mode of arrival: ambulatory Limitations: no limitations History of Present Illness ED Provider: Dr. Guillermina Gómez HPI narrative: Patient comes to the emergency room complaining of an allergic reaction. Patient was seen here 3 days ago for the same reason. Patient had yes started to use fluticasone propionate and salmeterol inhaler. Patient states that after I saw him here in the emergency room 3 days ago, patient left the ED completely asymptomatic and was doing well for last couple of days until today. Patient states that he did not use the inhaler. Patient comes in complaining of itchy hives again. Patient states that the only new thing that he can think of is that 4 days ago, they had a visiting dog in the house. However, patient is not known to be allergic to any animals. Patient denies any difficulty breathing or swallowing Related Data Home Medications ?Medication ?Instructions ?Recorded ?Confirmed atorvastatin 20 mg tablet 20 mg PO DAILY 02/23/21 11/22/23 omeprazole 20 mg capsule,delayed 20 mg PO DAILY 02/23/21 11/22/23 release diltiazem HCl 120 mg 120 mg PO DAILY 08/09/21 11/22/23 capsule,extended release 24 hr nebulizers 12/07/22 11/22/23 ibuprofen 800 mg tablet 800 mg PO .prn 09/05/23 11/22/23 Previous Rx's ?Medication ?Instructions ?Recorded albuterol sulfate 2.5 mg/3 mL 2.5 mg (3 mL) inhalation Q4-6H PRN 11/08/22 (0.083 %) solution for nebulization shortness of breath or wheezing #180 mL albuterol sulfate 90 mcg/actuation 2 inh inhalation Q4-6H PRN 03/20/23 breath activated powder inhaler shortness of breath or wheezing #1 ea montelukast 10 mg tablet 10 mg PO BEDTIME #90 tabs 09/17/23 fluticasone 250 mcg-salmeterol 50 1 ea PO BID #180 ea 12/13/23 mcg/dose blistr powdr for inhalation loratadine 10 mg chewable tablet 10 mg PO DAILY #30 tabs 12/28/23 Allergies Allergy/AdvReac Type Severity Reaction Status Date / Time morphine Allergy Severe tachycardia Verified 12/28/23 01:42 acetaminophen [Percocet] Allergy Unknown Unknown Verified 12/28/23 01:42 codeine [Tylenol-Codeine] Allergy Unknown Unknown Verified 12/28/23 01:42 oxycodone [Percocet] Allergy Unknown Unknown Verified 12/28/23 01:42 penicillin V Allergy Unknown Unknown Verified 12/28/23 01:42 diphenhydramine AdvReac Cough Verified 12/28/23 01:42 [From Benadryl] Review of Systems Review of Systems: Constitutional : No Weight loss, No Fever, No Chills, No Night Sweats, No Fatigue, No Malaise ENT/Mouth : No Hearing loss, No Ear Pain, No Nasal Congestion, No Sinus Pain, No Hoarseness, No sore throat, No Rhinorrhea, No Swallowing Difficulty Eyes: No Eye Pain, No Swelling, No Redness, No Foreign Body, No Discharge, No Vision Changes Cardiovascular : No Chest Pain, No SOB, No Dyspnea on Exertion, No Orthopnea, No Edema, No Palpitations Respiratory : No Cough, No Sputum, No Wheezing, No Smoke Exposure, No Dyspnea Gastrointestinal : No Nausea, No Vomiting, No Diarrhea, No Constipation, No abdominal Pain, No Hematochezia, No Melena Genitourinary : no irregular bleeding, No Dysuria, No Urinary Frequency, No Hematuria, No Urinary Incontinence, No Urgency, No Flank Pain, No Urinary Flow Changes, No Hesitancy Musculoskeletal : No joint pain, No Myalgias, No Joint Swelling Skin : Complaining of itchy hives Neuro : No Weakness, No Numbness, No Paresthesias, No Loss of Consciousness, No Dizziness, No Headache Psych : No Anxiety/Panic, No Depression, No SI/HI/AH/VH, No Social Issues, Heme/Lymph: No Bruising, No Bleeding,No Lymphadenopathy Endocrine : No Polyuria, No Polydipsia, No Temperature Intolerance [facility] Past Medical History Medical History Laryngitis COPD exacerbation [id number] condition COVID-19 Cough Allergic rhinitis COPD (chronic obstructive pulmonary disease) Social History Social History Patient Tobacco Use Status: Never used Tobacco Advance Directives: No Advance Directives Information Provided: No Physical Exam Vital Signs: Vital Signs: Last Vital Signs Temp 97.9 F 12/28/23 01:41 Pulse 74 12/28/23 01:41 Resp 18 12/28/23 01:41 BP 166/100 H 12/28/23 01:41 Pulse Ox 96 12/28/23 01:41 O2 Del Method Room Air 12/28/23 01:41 BMI result Body Mass Index 28.0 Const: Other: Appearance: Alert. Oriented X3. No acute distress. Eyes: Pupils equal, round and reactive to light. ENT: Pharynx normal. No angioedema Neck: Normal inspection. Neck supple. No lymph nodes noted. No crepitus CVS: Normal heart rate and rhythm. Pulses normal. Normal S1 and S2 Respiratory: No respiratory distress. Breath sounds normal. No Wheezing. No rales Abdomen: Soft and nontender. No rigidity. No distention. Skin: Patient has hives in the upper and lower extremities, buttocks back and a bdomen Extremities: No lower extremity edema. No Lacerations. No Rash Neuro: Oriented X 3. No motor deficit. No sensory deficit. Moving all extremities. No slurred speech. CN 2 through 12 grossly intact Psych: calm, cooperative, normal affect Course Course Course Narrative: -patient receiving IV fluids, Solu-Medrol, Benadryl and Pepcid -I discussed with the patient that he will likely need to be referred to immunology foreskin scratched test saw the patient not his allergic to and what to avoid. Patient agrees with plan. He will follow-up with his primary care physician. Medications Administered Discontinued Medications Generic Name Dose Route Start Last Admin Trade Name Bautista PRN Reason Stop Dose Admin Diphenhydramine HCl 50 mg 12/28/23 02:37 12/28/23 03:20 Diphenhydramine Hcl 50 Mg/Ml Vial IVPUSH 12/28/23 02:38 50 mg ONCE ONE Administration Famotidine 20 mg 12/28/23 02:37 12/28/23 03:17 Famotidine/Pf 20 Mg/2 Ml Vial IVPUSH 12/28/23 02:38 20 mg ONCE ONE Administration Sodium Chloride 1,000 mls @ 999 mls/hr 12/28/23 02:37 12/28/23 03:15 Ns IVCONT 12/28/23 03:37 999 mls/hr .Q1H1M ONE Administration Methylprednisolone Sodium Succinate 125 mg 12/28/23 02:37 12/28/23 03:14 Methylprednisolone Sod Succ 125 Mg/2 Ml Vial IVPUSH 12/28/23 02:38 125 mg ONCE ONE Administration Medical Decision Making Medical Decision Making MDM Narrative: -patient has hives improved. -as mentioned above, patient will follow-up with his primary care physician, patient needs a skin scratched test to determine what his real allergic to Differential Diagnosis Differential Diagnoses: The differential diagnosis associated with the presentation includes (Allergic reaction, hypersensitivity reaction) Admission/Observation Consideration of admission/observation: Escalation of care including admission/observation considered (Given patient's recurrent symptoms, observation was considered) Critical Care Time Critical Care Time Critical Care Time: Yes Total Critical Care Time: 30 Attestation: I have personally provided critical care time. Time includes review of lab data, radiology results, discussion with consultants, and monitoring for potential decompensation. Intervention performed as documented. Discharge Plan Discharge Clinical Impression: Allergic reaction Patient Disposition: Home, Self-Care Instructions: General Allergic Reaction (ED), Allergy Testing (ED) Additional Instructions: Please follow-up with your primary care physician tomorrow. If you have any worsening or new symptoms, please return to the emergency room or call 911 Prescriptions: New loratadine 10 mg tablet,chewable 10 mg PO DAILY Qty: 30 0RF No Action montelukast 10 mg tablet 10 mg PO BEDTIME Qty: 90 0RF fluticasone propion-salmeterol 250-50 mcg/dose blister with device 1 ea PO BID Qty: 180 0RF albuterol sulfate 90 mcg/actuation aerosol powdr breath activated 2 inh inhalation Q4-6H PRN (Reason: shortness of breath or wheezing) Qty: 1 0RF omeprazole 20 mg capsule,delayed release(DR/EC) 20 mg PO DAILY atorvastatin 20 mg tablet 20 mg PO DAILY diltiazem HCl 120 mg capsule,extended release 24hr 120 mg PO DAILY (DME) nebulizers Misc See Rx Instructions .Route Rx Instructions: As directed albuterol sulfate 2.5 mg /3 mL (0.083 %) solution for nebulization 2.5 mg inhalation Q4-6H PRN (Reason: shortness of breath or wheezing) Qty: 180 2RF ibuprofen 800 mg tablet 800 mg PO .prn Print Language: [place]
[2023-12-28] MEDS: methylPREDNISolone Sod Succ 125 MG/2 ML VIAL IVPUSH (03:14)
[2023-12-28] MEDS: 0.9 % Sodium Chloride 1,000 ML 999 ML IVCONT (03:15)
[2023-12-28] MEDS: Famotidine/PF 20 MG/2 ML VIAL IVPUSH (03:17)
[2023-12-28] MEDS: diphenhydrAMINE HCL 50 MG/ML VIAL IVPUSH (03:20)
[2023-12-28 04:03] VITALS: BP 145/95; PULSE 81; RESP 16; O2SAT 96
[2023-12-28 05:04] VITALS: BP 135/81; PULSE 63; RESP 18; TEMP 36.7; O2SAT 96
== END 2023-12-28 05:14 | disposition home or self-care (01) ==
PROVIDERS: Emergency Provider Emergency Medicine
DX: L50.9 Urticaria, unspecified (principal); T78.40XA Allergy, unspecified, initial encounter; X58.XXXA Exposure to other specified factors, initial encounter
CPT/HCPCS: 96361; 96374; 96375; 99284; J1200; J2919

== ENCOUNTER 2024-04-08 13:41 | Outpatient (AMB) | payer OTHER, SELFPAY ==
--- NOTE | 2024-04-08 13:56 | MHC.OFFVIS ---
Vital Signs 04/08/24 13:57 Height 5 ft 1 in Weight 155 lb 6.814 oz BMI 29.4 BP 140/70 H Blood Pressure Location Lt brachial Position Sitting Pulse 67 Pulse Source Pulse Oximeter Pulse Oximetry (%) 98 Oxygen Delivery Method Room Air Intake Visit Reasons: COPD Intake Note: pt is here for follow up and had cough last week , but is better today. Workgroup Leader Required: No Allergies morphine Allergy (Severe, Verified 04/08/24 14:19) tachycardia acetaminophen [Percocet] Allergy (Unknown, Verified 04/08/24 14:19) Unknown codeine [Tylenol-Codeine] Allergy (Unknown, Verified 04/08/24 14:19) Unknown oxycodone [Percocet] Allergy (Unknown, Verified 04/08/24 14:19) Unknown penicillin V Allergy (Unknown, Verified 04/08/24 14:19) Unknown diphenhydramine [From Benadryl] Adverse Reaction (Verified 04/08/24 14:19) Cough Medication List - Last Reconciled 04/08/24 by Nkechi Hickey MD albuterol sulfate 2.5 mg (3 mL) inhalation Q4-6H PRN albuterol sulfate 90 mcg/actuation 2 puffs inhalation Q6H PRN atorvastatin 20 mg PO DAILY diltiazem HCl CD 120 mg PO DAILY fluticasone propion-salmeterol 250-50 mcg/dose 1 ea PO BID ibuprofen 800 mg PO .prn loratadine 10 mg PO DAILY montelukast 10 mg PO BEDTIME nebulizers As directed omeprazole 20 mg PO DAILY Do you need a note to return to daycare/school/sports/work: No HPI HPI COPD: Details: This 73 years old very pleasant gentleman, a case of ASTHMA/COPD , he comes for follow-up after 4 months. In the meantime his breathing has remained stable except for a few flare ups, he had to use 1 course of prednisone. He also presented to the emergency room with nonspecific allergic type of reaction, which has resolved. Breathing guardado he is doing well, denies any cough or wheezing but does have shortness of breath on walking fast or climbing stairs. [facility] Medical History Laryngitis COPD exacerbation [id number] condition COVID-19 Cough Allergic rhinitis COPD (chronic obstructive pulmonary disease) Social History Alcohol intake: current Alcohol intake frequency: holidays/special occasions only Patient Tobacco Use Status: Never used Tobacco Review of Systems Const All systems reviewed & are unremarkable except as noted in HPI and below Eyes Reports no additional complaints ENT Reports no additional complaints Card Denies chest pain, Denies irregular heart rhythm and Denies leg edema Resp Reports as per HPI, Reports cough and Reports wheezing GI Reports heartburn (Controlled with omeprazole) Reports no additional complaints Musc Reports no additional complaints Skin/Breast Reports system reviewed and no additional complaints, except as documented Neuro Reports no additional complaints Psych Reports no additional complaints Endo Reports no additional complaints Aller/Immun Reports wheezing Physical Exam Vital Signs: Last Vital Signs Pulse 67 04/08/24 13:57 BP 140/70 H 04/08/24 13:57 Pulse Ox 98 04/08/24 13:57 Oxygen Delivery Method Room Air 04/08/24 13:57 BMI result Body Mass Index 29.4 His voice is hoarse., otherwise he looks stable and as usual. Const General: comfortable, no acute distress, alert and awake Orientation/consciousness: patient oriented x3 HEENT Head: Yes normal to inspection General nose exam: No nasal polyps present and No nasal discharge present Face and sinus: Yes sinuses nontender Mouth: oropharynx normal (Throat is very clear.) Throat: Yes posterior oropharynx normal Eyes General: appearance normal, both eyes and all related structures Neck Neck: Yes normal visual inspection, Yes no lymphadenopathy, Yes trachea midline and Yes no JVD Thyroid: Thyroid normal Chest Chest palpation & inspection: normal inspection of the chest, normal palpation of entire chest wall and no tenderness Resp Other: His chest examination shows increased AP diameter. Percussion note is slightly hyper-resonant. Breath sounds are distant with prolonged expiratory phase. No wheezes or crepitations are heard today. Cardio Palpation: normal PMI Rate: regular rate Rhythm: regular rhythm Heart sounds: no gallops and no murmurs GI Palpation (GI): Soft to palpation, nontender, No hepatosplenomegaly present and no masses Auscultation: normal bowel sounds Back/Spine/Pelvis Thoracic/Lumbar Spine: thoracic and lumbar spine normal to inspection Skin General skin exam: no rashes or lesions noted Neuro General: patient oriented x3 and no focal motor deficits Cranial nerves: Yes CN's II-XII intact bilaterally Extrem General: Yes normal to inspection, Yes no clubbing, cyanosis or edema and Yes no calf tenderness Psych Appearance: grossly normal and well kempt Speech and movement: Normal speech and movement present Assessment & Plan Assessment & Plan (1) COPD (chronic obstructive pulmonary disease): Comment: PATIENT DOES HAVE MODERATELY SEVERE CHRONIC OBSTRUCTIVE PULMONARY DISEASE. HE IS PRONE TO HAVE FREQUENT EXACERBATIONS AND RESPONDS TO ORAL PREDNISONE VERY QUICKLY. AT THIS TIME COPD IS WELL CONTROLLED AND HE IS HE IS STABLE. DID NOT HAVE ANY ACUTE EXACERBATION IN THE LAST 3 MONTHS. Code(s): J44.9 - Chronic obstructive pulmonary disease, unspecified Category: Medical Plan: CONTINUE FLUTICASONE-SALMETEROL 250-50 1 INHALATION B.I.D. CONTINUE MONTELUKAST 10 MG DAILY . ALBUTEROL HFA 2 PUFFS Q 4-6 HOURS P.R.N. OR MAY USE ALBUTEROL SOLUTION IN THE NEBULIZER Q 4-6 HOURS P.R.N.. HE LIKES TO KEEP PREDNISONE ON HAND AND I HAVE WRITTEN A PRESCRIPTION FOR 20 MG B.I.D. FOR 5 DAYS. (2) Allergic rhinitis: Comment: ALLERGIC RHINITIS, CHRONIC, REMAINS CONTROLLED. Code(s): J30.9 - Allergic rhinitis, unspecified Category: Medical Plan: MONTELUKAST 10 MG DAILY LORATADINE 10 MG ONCE A DAY P.R.N. Coding Level of Care Code Est Pt Level 3 (24244) Diagnoses COPD (chronic obstructive pulmonary disease) J44.9 Allergic rhinitis J30.9
[2024-04-08 13:57] VITALS: BP 140/70; PULSE 67; O2SAT 98; BMI 29.4
== END 2024-04-08 14:22 | disposition home or self-care (01) ==
PROVIDERS: Visit Provider Internal Medicine
DX: J44.9 Chronic obstructive pulmonary disease, unspecified (principal); J30.9 Allergic rhinitis, unspecified
CPT/HCPCS: 99213

== ENCOUNTER → 2024-04-08 13:41 | Outpatient (BNVA) | payer OTHER, SELFPAY | PROVIDERS: Visit Provider Internal Medicine | DX: J44.9 Chronic obstructive pulmonary disease, unspecified (principal); J30.9 Allergic rhinitis, unspecified | CPT/HCPCS: 99212 ==

== ENCOUNTER 2024-07-21 15:21 | Outpatient (AMB) | payer OTHER, SELFPAY ==
[2024-07-21 15:26] VITALS: BP 135/80; PULSE 85; O2SAT 96; BMI 28.9
--- NOTE | 2024-07-21 15:26 | MHC.OFFVIS ---
Vital Signs 07/21/24 15:26 Height 5 ft 1 in Weight 153 lb 3.54 oz BMI 28.9 BP 135/80 Blood Pressure Location Lt brachial Position Sitting Pulse 85 Pulse Source Pulse Oximeter Pulse Oximetry (%) 96 Oxygen Delivery Method Room Air Intake Visit Reasons: copd Intake Note: pt is here for follow up and states he has been coughing, dry cough, inhalers and neb helps. Mold Carrier Required: No Allergies morphine Allergy (Severe, Verified 07/21/24 15:28) tachycardia acetaminophen [Percocet] Allergy (Unknown, Verified 07/21/24 15:28) Unknown codeine [Tylenol-Codeine] Allergy (Unknown, Verified 07/21/24 15:28) Unknown oxycodone [Percocet] Allergy (Unknown, Verified 07/21/24 15:) Unknown penicillin V Allergy (Unknown, Verified 07/21/24 15:28) Unknown diphenhydramine [From Benadryl] Adverse Reaction (Verified 07/21/24 15:28) Cough Medication List - Last Reconciled 07/21/24 by Nkechi Hickey MD albuterol sulfate 2.5 mg (3 mL) inhalation Q4-6H PRN albuterol sulfate 90 mcg/actuation 2 puffs inhalation Q6H PRN atorvastatin 20 mg PO DAILY diltiazem HCl CD 120 mg PO DAILY fluticasone propion-salmeterol 250-50 mcg/dose 1 ea PO BID ibuprofen 800 mg PO .prn loratadine 10 mg PO DAILY montelukast 10 mg PO BEDTIME nebulizers As directed omeprazole 20 mg PO DAILY Do you need a note to return to daycare/school/sports/work: No HPI HPI copd: Details: Santos is a 73-year-old here today for a routine 4 month follow-up for his COPD He completed a 5 day course of prednisone last week and reports that he is feeling better Has a dry cough that he says he is had since having COVID in 2020 but does not feel like the cough has gotten worse Does not have any increase in his shortness of breath and only uses his rescue inhaler as needed The nasal congestion due to his chronic allergies is under control Overall he is doing fine and is stable [facility] Medical History Laryngitis COPD exacerbation [id number] condition COVID-19 Cough Allergic rhinitis COPD (chronic obstructive pulmonary disease) Social History Alcohol intake: current Alcohol intake frequency: holidays/special occasions only Patient Tobacco Use Status: Never used Tobacco Review of Systems Const All systems reviewed & are unremarkable except as noted in HPI and below Eyes Reports no additional complaints ENT Reports no additional complaints Card Denies chest pain, Denies irregular heart rhythm and Denies leg edema Resp Reports as per HPI, Reports cough and Reports wheezing GI Reports heartburn (Controlled with omeprazole) Reports no additional complaints Musc Reports no additional complaints Skin/Breast Reports system reviewed and no additional complaints, except as documented Neuro Reports no additional complaints Psych Reports no additional complaints Endo Reports no additional complaints Aller/Immun Reports wheezing Physical Exam Vital Signs: Last Vital Signs Pulse 85 07/21/24 15:26 BP 135/80 07/21/24 15:26 Pulse Ox 96 07/21/24 15:26 Oxygen Delivery Method Room Air 07/21/24 15:26 BMI result Body Mass Index 28.9 His voice is hoarse., otherwise he looks stable and as usual. Const General: comfortable, no acute distress, alert and awake Orientation/consciousness: patient oriented x3 HEENT Head: Yes normal to inspection General nose exam: No nasal polyps present and No nasal discharge present Face and sinus: Yes sinuses nontender Mouth: oropharynx normal (Throat is very clear.) Throat: Yes posterior oropharynx normal Eyes General: appearance normal, both eyes and all related structures Neck Neck: Yes normal visual inspection, Yes no lymphadenopathy, Yes trachea midline and Yes no JVD Thyroid: Thyroid normal Chest Chest palpation & inspection: normal inspection of the chest, normal palpation of entire chest wall and no tenderness Resp Other: His chest examination shows increased AP diameter. Percussion note is slightly hyper-resonant. Breath sounds are distant with prolonged expiratory phase. No wheezes or crepitations are heard today. Cardio Palpation: normal PMI Rate: regular rate Rhythm: regular rhythm Heart sounds: no gallops and no murmurs GI Palpation (GI): Soft to palpation, nontender, No hepatosplenomegaly present and no masses Auscultation: normal bowel sounds Back/Spine/Pelvis Thoracic/Lumbar Spine: thoracic and lumbar spine normal to inspection Skin General skin exam: no rashes or lesions noted Neuro General: patient oriented x3 and no focal motor deficits Cranial nerves: Yes CN's II-XII intact bilaterally Extrem General: Yes normal to inspection, Yes no clubbing, cyanosis or edema and Yes no calf tenderness Psych Appearance: grossly normal and well kempt Speech and movement: Normal speech and movement present Assessment & Plan Assessment & Plan (1) COPD (chronic obstructive pulmonary disease): Comment: PATIENT DOES HAVE MODERATELY SEVERE CHRONIC OBSTRUCTIVE PULMONARY DISEASE. HE IS PRONE TO HAVE FREQUENT EXACERBATIONS AND RESPONDS TO ORAL PREDNISONE VERY QUICKLY. AT THIS TIME COPD IS WELL CONTROLLED AND HE IS STABLE. Code(s): J44.9 - Chronic obstructive pulmonary disease, unspecified Category: Medical Plan: Advised to continue his with his ProAir rescue inhaler and his Wixela 250-50 1 inhalation b.i.d. Albuterol HFA puffs 2 puffs Q 6 hours p.r.n. Montelukast 10 mg once daily at bedtime (2) Cough: Comment: THE COUGH WAS DUE TO POST COVID -19 INFECTION AND HIS AGGRAVATED COPD. NOW THE COUGH IS MINIMAL . Code(s): R05 - Cough Category: Medical Plan: Use Robitussin syrup only p.r.n. (3) Allergic rhinitis: Comment: ALLERGIC RHINITIS, CHRONIC, REMAINS CONTROLLED. Code(s): J30.9 - Allergic rhinitis, unspecified Category: Medical Plan: Advised to continue using montelukast 10 mg daily Coding Level of Care Code Est Pt Level 3 (05884) Diagnoses COPD (chronic obstructive pulmonary disease) J44.9 Cough R05 Allergic rhinitis J30.9
--- OUTSIDE RECORDS SUMMARY | 2024-07-21 17:32 | XMS_ITS | Clinical Summary ---
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 Name Role Phone Robi Burks Primary Care Provider [phone] Allergies Active Allergy Reactions Criticality Noted Date Comments Codeine Hives 05/11/2014 Morphine Hives 05/11/2014 Oxycodone Hives 07/12/2022 Oxycodone-Acetaminophen 08/27/2014 Heart palpatations Penicillins Hives 07/12/2022 Medications atorvastatin (LIPITOR) 20 mg tablet TAKE 1 TABLET BY MOUTH DAILY 90 tablet 3 03/19/20 24 Active albuterol HFA (PROAIR HFA ; PROVENTIL HFA ; VENTOLIN HFA) 90 mcg/actuation inhaler INHALE 2 PUFFS BY MOUTH EVERY 4 TO 6 HOURS NEEDED FOR SHORTNESS OF BREATH OR WHEEZING Active dilTIAZem CD (CARDIZEM CD) 120 mg 24 hr capsule Take 1 capsule (120 mg total) by mouth 1 (one) time each day. 02/01/20 24 Active fluticasone propion-salmet Shena (ADVAIR DISKUS) 100-50 mcg/dose diskus inhaler Inhale by mouth. Active fluticasone propion-salmet Shena (ADVAIR DISKUS) 500-50 mcg/dose diskus inhaler Inhale 1 puff by mouth 2 (two) times a day. 10/02/19 19 Active ibuprofen (ADVIL,MOTRIN) 800 mg tablet Take 1 tablet (800 mg total) by mouth every 8 (eight) hours if needed. for pain Active metFORMIN (GLUCOPHAGE) 500 mg tablet Take 1 tablet (500 mg total) by mouth 1 (one) time each day with breakfast. 12/28/19 24 Active montelukast (SINGULAIR) 10 mg tablet Take 1 tablet (10 mg total) by mouth at bedtime. at bedtime. Active Daily Fiber, psyllium-aspar t, 3.4 gram packet Take 1 packet by mouth 1 (one) time each day. 02/04/20 24 Active ipratropium-al buteroL (DUONEB) 0.5-2.5 mg/3 mL nebulizer solution Inhale 3 mL into the lungs 4 times daily as needed for Other (asthma, wheeze). 06/12/19 24 Active LORazepam (ATIVAN) 0.5 mg tablet Take 1-2 Tabs by mouth as needed (prior to dental appointment). Take 1 tablet as needed for anxiety/panic symptoms 06/18/19 20 Active omeprazole (PriLOSEC) [address] capsule TAKE 1 CAPSULE BY MOUTH DAILY 30 capsule 1 07/09/19 25 Active omeprazole (PriLOSEC) [address] capsule TAKE 1 CAPSULE BY MOUTH DAILY 30 capsule 1 03/26/20 24 025 Discontinued Active Problems Problem Noted Date Diagnosed Date COPD (chronic obstructive pulmonary disease) Type 2 diabetes mellitus wit hout complication, without long-term current use of insulin 07/23/2023 Prostate cancer 11/17/2022 Overview (03/26/2024): grade group 2 radiation tx 2022 History of 2019 novel coronavirus disease (COVID -19) 03/16/2021 Contusion of right calf 11/25/2019 Elevated PSA 12/21/2017 Essential hypertension 02/23/2016 Gastroesophageal reflux disease without esophagi tis 03/04/2015 Hyperlipidemia 08/04/2014 Asthma 05/11/2014 Overview (03/26/2024): ethan dasilva Elevated Ig E Dx is allergic asthma Immunizations Name Administration Dates Next Due Influenza Quadravalent, MDCK , 0.5ml, preservative free (Flucelvax) 6mo and older 06/18/2019 Influenza trivalent, 0.5mL ( Fluad) 65yo and older 02/04/2024,02/13/2022,03/16/2021,01/24,02/23/2016 Influenza trivalent, 0.5mL, preservative free (Fluarix; FluLaval; Fluzone) ages 6mo and older (Afluria) 3 years and older 03/21/2018,03/05/2014 Pneumococcal conjugate 13 va lent (Prevnar 13, PCV13) 2mo and older 02/23/2016 Pneumococcal polysaccharide 23 valent (Pneumovax 23) 2yo and older 03/16/2021,10/27/2014 Tdap Tetanus diptheria acell ular pertussis (Boostrix; Adacel) 7yo and older 10/27/2014 Zoster recombinant (Shingrix ) 19yo and older 06/08/2022 Surgical History Surgery Date Site/Laterality Comments OTHER SURGICAL HISTORY PROCEDURE: TN I&D DEEP ABSC/HMTMA SOFT TISSUE NECK/THORAX; COMMENT: hematoma around upper back TONSILLECTOMY PROCEDURE: HISTORICAL TONSILLECTOMY COLONOSCOPY PROCEDURE: HISTORICAL COLONOSCOPY; COMMENT: around 2012 COLONOSCOPY 07/12/2022 PROCEDURE: HISTORICAL COLONOSCOPY; COMMENT: dr. saucedo -diverticulosis, hemorrhoids, repeat 10 years Medical History Medical History Date Comments Essential hypertension 02/23/2016 DX:Essent ial hypertension Gastroesophageal reflux dise ase without esophagitis 03/04/2015 DX:Gastroesophageal reflux d isease without esophagitis Hyperlipidemia 08/04/2014 DX:Hyperlipidemi a Asthma 05/11/2014 DX:Asthma; COMME NT: eval Dr brad dasilva Elevated Ig E Dx is allergic asthma Family History Medical History Relation Name Comments Prostate cancer Brother x2 No Known Problems Daughter Other: oral cancer Father smoker, e augustus use No Known Problems Maternal Grandfather No Known Problems Maternal Grandmother Other: stomach ulcers Mother No Known Problems Paternal Grandfather No Known Problems Paternal Grandmother Other: 14 brothers and sisters Sister Relation Name Status Comments Brother Alive Daughter Alive Father Maternal Grandfather Maternal Grandmother Mother (Age 98) Paternal Grandfather Paternal Grandmother Sister Alive Social History Tobacco Use Types Packs/Day Years Used Date Smoking Tobacco: Never Smokeless Tobacco: Never Alcohol Use Standard Drinks/Week Comments No 0 (1 standard drink = 0.6 oz pur e alcohol) Sex and Gender Information Value Date Recorded Sex Assigned at Not on file Legal Sex Male 8:27 AM EST Gender Identity Not on file Sexual Orientation Not on file Obstetrics History Last Filed Vital Signs Vital Sign Reading Time Taken Comments Blood Pressure 126/60 02/04/2024 2:31 PM EDT Pulse 70 02/04/2024 2:31 PM EDT Temperature - - Respiratory Rate - - Oxygen Saturation - - Inhaled Oxygen Concentration - - Weight 68.7 kg (151 lb 6.4 oz) 02/04/2024 2:31 P M EDT Height 154.9 cm (5' 1 ) 02/04/2024 2:31 PM EDT Body Mass Index 28.61 02/04/2024 2:31 PM EDT Plan of Treatment Upcoming Encounters Date Type Department Care Team (Late st Contact Info) Description 08/04/2024 2:30 PM EDT Office Visit Adult Medicine [facility] [address] [place] [id number] Robi Burks PA [address] [place] [address] Health Maintenance Due Date Last Done Comments RSV Immunization Patients 60+ Years Old (1 - Risk 60-74 years 1-dose series) 2009 COVID-19 Vaccine (3 - Pfizer risk series) 11/09/2020 10/12/2020, 09/20/2020 Social Influencers of Health Screening 04/22/2022 Zoster Vaccines (2 of 2) 08/03/2022 06/08/2022 Diabetes: Annual Retina Eye Exam 07/12/2024 07/13/2023 Diabetes: Blood Sugar Control Test (HGBA1C) 08/03/2024 02/04/2024, 02/04/2024 DTaP,Tdap,and Td Vaccines (2 - Td or Tdap) 10/27/2024 10/27/2014 Depression Screening 02/03/2025 02/04/2024 Diabetes: Annual Urine Albumin-Creatinine Ratio (uACR) 02/03/2025 02/04/2024 Diabetes: Annual Foot Exam 02/03/2025 02/04/2024 Diabetes: Annual GFR (Glomerular Filtration Rate) 02/03/2025 02/04/2024, 02/04/2024 Falls Risk Assessment 02/03/2025 02/04/2024 Hypertension/CHF/CAD Annual BMP Blood Test 02/03/2025 02/04/2024, 02/04/2024 Cholesterol Screening (Lipid Panel) 02/03/2029 02/04/2024, 02/04/2024 Colorectal Cancer Screening: Colonoscopy 07/12/2032 07/12/2022 Hepatitis C Screening Completed 08/03/2014 Pneumococcal Vaccine: 50+ Years Completed 03/16/2021, 02/23/2016, 10/27/2014 Influenza Vaccine Completed 02/04/2024, , 03/16/2021, Additional history exists HIB Vaccines Aged Out No longer eligi ble based on patient's age to complete this topic HPV Vaccines Aged Out No longer eligi ble based on patient's age to complete this topic Hepatitis A Vaccines Aged Out No long er eligible based on patient's age to complete this topic Hepatitis B Vaccines Aged Out No long er eligible based on patient's age to complete this topic IPV Vaccines Aged Out No longer eligi ble based on patient's age to complete this topic MMR Vaccines Aged Out No longer eligi ble based on patient's age to complete this topic Meningococcal ACWY Vaccine Aged Out N o longer eligible based on patient's age to complete this topic Meningococcal B Vacine Aged Out No lo nger eligible based on patient's age to complete this topic RSV Immunization Patients Under 20 months Aged Out No longer eligible based on patient's age to complete this topic Varicella Vaccines Aged Out No longer eligible based on patient's age to complete this topic Procedures Procedure Name Priority Date/Time Associated Diagnosis Comments DEPRESSION SCREENING Routine 02/04/2024 FALLS RISK ASSESSMENT Routine 02/04/2024 URINE ALBUMIN CREATININE RATIO Routine 02/04/2024 ANNUAL BMP BLOOD TEST Routine 02/04/2024 HEMOGLOBIN A1C Routine 02/04/2024 LIPID PANEL Routine 02/04/2024 DIABETES FOOT EXAM Routine 02/04/2024 DIABETES EYE EXAM Routine 07/13/2023 COLONOSCOPY Routine 07/12/2022 HEPATITIS C SCREENING Routine 08/03/2014 from Last 3 Months or Most Recently Relevant to Health Maintenance Results * Urine Albumin Creatinine Ratio (02/04/2024) [facility] Urine Albumin Creatinine Ratio Abstracted Result [facility] HEALTH MAINTENANCE Final Result * Annual BMP Blood Test (02/04/2024) Pathologist [facility] Annual BMP Blood Test Abstracted Result [facility] HEALTH MAINTENANCE Final Result * Falls Risk Assessment (02/04/2024) [facility] Falls Risk Assessment Abstracted Result [facility] HEALTH MAINTENANCE Final Result * Depression Screening (02/04/2024) [facility] Depression Screening Abstracted Result [facility] HEALTH MAINTENANCE Final Result * Diabetes Foot Exam (02/04/2024) [facility] Diabetes: Annual Foot Exam Abstracted Result [facility] HEALTH MAINTENANCE Final Result * Hemoglobin A1c (02/04/2024) [facility] Hemoglobin A1C 6.1 <=6.5 % Blood Venous blood specimen / Unknown Result [facility] LAB BLOOD ORDERABLES Laura l Result * Lipid panel (02/04/2024) [facility] LDL/HDL Ratio 3 0 - 4 Triglycerides 103 0 - 150 mg/dL Cholesterol 169 0 - 200 mg/dL HDL 62 >=40 mg/dL LDL Cholesterol 87 0 - 100 mg/dL Blood Venous blood specimen / Unknown Result [facility] LAB BLOOD ORDERABLES Laura l Result * Diabetes Eye Exam (07/13/2023) [facility] Diabetes: Annual Retina Eye Exam Abstracted [facility] Provider HEALTH MAINTENANCE Final Result * Colonoscopy (07/12/2022) [facility] Colonoscopy No Interpretation , Abstracted Anatomical Region Laterality Modality Other Result [facility] Provider HEALTH MAINTENANCE Final Result * Hepatitis C Screening (08/03/2014) [facility] Hepatitis C Screening Abstracted Result [facility] Provider HEALTH MAINTENANCE Final Result from Last 3 Months or Most Recently Relevant to Health Maintenance Care Teams Dry House Tender Relationship Specialty Start Date End Date Robi Burks PA PCP - General Internal Medicine 02/03/20
== END 2024-07-21 15:42 | disposition home or self-care (01) ==
LOC: HO.HPS 15:22
PROVIDERS: PCP Physician Assistant Medical; Visit Provider Internal Medicine
DX: J44.9 Chronic obstructive pulmonary disease, unspecified (principal); R05.9 Cough, unspecified; J30.9 Allergic rhinitis, unspecified
CPT/HCPCS: 99213

== ENCOUNTER → 2024-07-21 15:21 | Outpatient (BNVA) | payer OTHER, SELFPAY | PROVIDERS: PCP Physician Assistant Medical; Visit Provider Internal Medicine | DX: J44.9 Chronic obstructive pulmonary disease, unspecified (principal); J30.9 Allergic rhinitis, unspecified; R05.9 Cough, unspecified | CPT/HCPCS: 99212 ==

== ENCOUNTER 2024-11-18 13:48 | Outpatient (AMB) | payer OTHER, SELFPAY ==
--- OUTSIDE RECORDS SUMMARY | 2023-03-05 10:30 | XMS_ITS | Continuity of Care Document ---
Author Organization [facility] Address [address] [place] [address] [address] [place] [address] Phone Care Team Providers Care News Correspondent Name Role Phone Solomon BLACK FACS RVT [...] Providers Copied on Encounter [facility], [address] [place] [address] [address]Emy [place], [id number], [place] tel:[phone] R - [place] Encounter for follow-up examination after completed treatment for conditions other than malignant ne 3 Solomon BLACK FACS RVT JENNIFER Parker. [address] [facility], [place] [address], [place], [address], [place]. tel:[phone] Referring Provider: Robi Elam, [address] [place] [address], [address]. tel:[phone] [facility], [address] [place] [address] [address]Emy [place], [id number], [place] tel:[phone] CVR - [facility] Chronic venous hypertension (idiopathic) with inflammation of left lower extremity Oct- 3 Gato BLACK, RVT, JENNIFER Jansen. [address] [place] [address], [place], [place], [id number] , [place]. tel:[phone] Referring Provider: Robi Elam, [address] [place] [address], [address]. tel:[phone] Offic/outpt E&m Estab 5 Min Trial - [facility], [address] [place] [address] [address]Emy [place], [id number], [place] tel:[phone] CVR - [facility] Chronic venous htn w oth comp of bilateral low extrm Sep-0 3 Solomon BLACK FACS RVT JENNIFER Parker. [address] [place] [address], [place], [address], [place]. tel:[phone] Referring Provider: Robi Elam, [address] [place] [address], [address]. tel:[phone] [facility], [address] [place] [address] [address]Emy [place], [id number], [place] tel:[phone] CVR - [facility] Chronic venous htn w oth comp of bilateral low extrm Johnson- 3 Solomon BLACK FACS RVT JENNIFER Parker. [address] [place] [address], [place], [address], [place]. tel:[phone] Referring Provider: Robi Elam, [address] [place] [address], [address]. 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 [address] [facility], [address], [place], [address], [place]. tel:[phone] Referring Provider: Robi Elam, [address] [place] [address], [place], [address]. tel:[phone] Family History Family Member Type Diagnosis Age At Onset No Information Payers Payer name Insurance type Covered green party ID Authorrubya maricarmen(s) [facility] CI [id number] Social History Type Description Quantity Date Captured [...]
[2024-11-18 14:15] VITALS: BP 122/68; PULSE 83; O2SAT 97; BMI 28.5
--- NOTE | 2024-11-18 14:15 | MHC.OFFVIS ---
Vital Signs 11/18/24 14:15 Height 5 ft 1 in Weight 151 lb 0.266 oz BMI 28.5 BP 122/68 Blood Pressure Location Lt brachial Position Sitting Pulse 83 Pulse Source Pulse Oximeter Pulse Oximetry (%) 97 Oxygen Delivery Method Room Air Intake Visit Reasons: copd Intake Note: pt is here for follow up and he feels so good the cough is finally gone post covid. Quality Head Required: No Allergies morphine Allergy (Severe, Verified 11/18/24 14:35) tachycardia acetaminophen (Percocet) Allergy (Unknown, Verified 11/18/24 14:35) Unknown codeine (Tylenol-Codeine) Allergy (Unknown, Verified 11/18/24 14:35) Unknown oxycodone (Percocet) Allergy (Unknown, Verified 11/18/24 14:35) Unknown penicillin V Allergy (Unknown, Verified 11/18/24 14:35) Unknown diphenhydramine (From Benadryl) Adverse Reaction (Verified 11/18/24 14:35) Cough Medication List - Last Reconciled 11/18/24 by Nkechi Hickey MD albuterol sulfate 2.5 mg (3 mL) inhalation Q4-6H PRN albuterol sulfate 90 mcg/actuation 2 puffs inhalation Q6H PRN atorvastatin 20 mg PO DAILY diltiazem HCl CD 120 mg PO DAILY fluticasone propion-salmeterol 250-50 mcg/dose 1 ea PO BID ibuprofen 800 mg PO .prn loratadine 10 mg PO DAILY montelukast 10 mg PO BEDTIME nebulizers As directed omeprazole 20 mg PO DAILY Do you need a note to return to daycare/school/sports/work: No HPI HPI copd: Details: CALLIE IS HERE FOR 4 MONTHS FOLLOW-UP AND HE IS VERY HAPPY, CLAIMING THAT SINCE HIS LAST VISIT HE HAS HAD NO ACUTE. ATTACKS AND THE COUGH IS ALMOST GONE I THINK ADDITION OF MONTELUKAST 1 TABLET A DAY HAS HELPED. HE DOES USE FLUTICASONE-SALMETEROL 1 INHALATION B.I.D. AND HARDLY NEEDS TO USE ALBUTEROL. 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 [facility] Medical History Laryngitis COPD exacerbation [id number] condition COVID-19 Cough Allergic rhinitis COPD (chronic obstructive pulmonary disease) Social History Alcohol intake: current Alcohol intake frequency: holidays/special occasions only Patient Tobacco Use Status: Never used Tobacco Review of Systems Const All systems reviewed & are unremarkable except as noted in HPI and below Eyes Reports no additional complaints ENT Reports no additional complaints Card Denies chest pain, Denies irregular heart rhythm and Denies leg edema Resp Reports as per HPI, Reports cough and Reports wheezing GI Reports heartburn (Controlled with omeprazole) Reports no additional complaints Musc Reports no additional complaints Skin/Breast Reports system reviewed and no additional complaints, except as documented Neuro Reports no additional complaints Psych Reports no additional complaints Endo Reports no additional complaints Aller/Immun Reports wheezing Physical Exam Vital Signs: Last Vital Signs Pulse 83 11/18/24 14:15 BP 122/68 11/18/24 14:15 Pulse Ox 97 11/18/24 14:15 Oxygen Delivery Method Room Air 11/18/24 14:15 BMI result Body Mass Index 28.5 His voice is hoarse., otherwise he looks stable and as usual. Const General: comfortable, no acute distress, alert and awake Orientation/consciousness: patient oriented x3 HEENT Head: Yes normal to inspection General nose exam: No nasal polyps present and No nasal discharge present Face and sinus: Yes sinuses nontender Mouth: oropharynx normal (Throat is very clear.) Throat: Yes posterior oropharynx normal Eyes General: appearance normal, both eyes and all related structures Neck Neck: Yes normal visual inspection, Yes no lymphadenopathy, Yes trachea midline and Yes no JVD Thyroid: Thyroid normal Chest Chest palpation & inspection: normal inspection of the chest, normal palpation of entire chest wall and no tenderness Resp Other: His chest examination shows increased AP diameter. Percussion note is slightly hyper-resonant. Breath sounds are distant with prolonged expiratory phase. No wheezes or crepitations are heard today. And there was no cough during deep inspirations. Cardio Palpation: normal PMI Rate: regular rate Rhythm: regular rhythm Heart sounds: no gallops and no murmurs GI Palpation (GI): Soft to palpation, nontender, No hepatosplenomegaly present and no masses Auscultation: normal bowel sounds Back/Spine/Pelvis Thoracic/Lumbar Spine: thoracic and lumbar spine normal to inspection Skin General skin exam: no rashes or lesions noted Neuro General: patient oriented x3 and no focal motor deficits Cranial nerves: Yes CN's II-XII intact bilaterally Extrem General: Yes normal to inspection, Yes no clubbing, cyanosis or edema and Yes no calf tenderness Psych Appearance: grossly normal and well kempt Speech and movement: Normal speech and movement present Assessment & Plan Assessment & Plan (1) COPD (chronic obstructive pulmonary disease): Comment: PATIENT DOES HAVE MODERATELY SEVERE CHRONIC OBSTRUCTIVE PULMONARY DISEASE. HE IS PRONE TO HAVE FREQUENT EXACERBATIONS AND RESPONDS TO ORAL PREDNISONE VERY QUICKLY. AT THIS TIME COPD IS WELL CONTROLLED AND HE IS STABLE. Code(s): J44.9 - Chronic obstructive pulmonary disease, unspecified Category: Medical Plan: Advised to continue using fluticasone-salmeterol 250-50 1 inhalation b.i.d. regularly Use albuterol HFA 2 puffs Q 6 hours only p.r.n. (2) Cough: Comment: THE COUGH WAS DUE TO POST COVID -19 INFECTION AND AGGRAVATED COPD. NOW THE COUGH IS ALMOST COMPLETELY RESOLVED. Code(s): R05 - Cough Category: Medical Plan: HE CAN USE OTC COUGH MEDS ONLY NEEDED (3) Allergic rhinitis: Comment: ALLERGIC RHINITIS, CHRONIC, REMAINS CONTROLLED. Code(s): J30.9 - Allergic rhinitis, unspecified Category: Medical Plan: MONTELUKAST 10 MG DAILY. LORATADINE 10 MG ONCE A DAY P.R.N. Coding Level of Care Code Est Pt Level 3 (95095) Diagnoses COPD (chronic obstructive pulmonary disease) J44.9 Cough R05 Allergic rhinitis J30.9
--- OUTSIDE RECORDS SUMMARY | 2024-11-18 14:38 | XMS_ITS | Clinical Summary ---
Author Organization [address] Address [address] [place] [id number] Phone Care Team Providers Care Lease Administration Analyst Name Role Phone Robi Burks Primary Care Provider [phone] Allergies Active Allergy Reactions Criticality Noted Date Comments Codeine Hives 05/11/2014 Morphine Hives 05/11/2014 Oxycodone Hives 07/12/2022 Oxycodone-Acetaminophen 08/27/2014 Heart palpatations Penicillins Hives 07/12/2022 Medications atorvastatin (LIPITOR) 20 mg tablet TAKE 1 TABLET BY MOUTH DAILY 90 tablet 3 4 Active albuterol HFA (PROAIR HFA ; PROVENTIL HFA ; VENTOLIN HFA) 90 mcg/actuation inhaler INHALE 2 PUFFS BY MOUTH EVERY 4 TO 6 HOURS NEEDED FOR SHORTNESS OF BREATH OR WHEEZING Active fluticasone propion-salmete roL (ADVAIR DISKUS) 100-50 mcg/dose diskus inhaler Inhale by mouth. Active fluticasone propion-salmete roL (ADVAIR DISKUS) 500-50 mcg/dose diskus inhaler Inhale 1 puff by mouth 2 (two) times a day. 9 Active montelukast (SINGULAIR) 10 mg tablet Take 1 tablet (10 mg total) by mouth at bedtime. at bedtime. Active Daily Fiber, psyllium-aspart , 3.4 gram packet Take 1 packet by mouth 1 (one) time each day. 4 Active ipratropium-alb uteroL (DUONEB) 0.5-2.5 mg/3 mL nebulizer solution Inhale 3 mL into the lungs 4 times daily as needed for Other (asthma, wheeze). 4 Active LORazepam (ATIVAN) 0.5 mg tablet Take 1-2 Tabs by mouth as needed (prior to dental appointment). Take 1 tablet as needed for anxiety/panic symptoms 0 Active metFORMIN (GLUCOPHAGE) 500 mg tablet TAKE 1 TABLET BY MOUTH DAILY WITH BREAKFAST FOR BLOOD SUGAR 90 tablet 5 Active omeprazole (PriLOSEC) [address] capsule TAKE 1 CAPSULE BY MOUTH DAILY 30 capsule 5 Active dilTIAZem CD (CARDIZEM CD) 120 mg 24 hr capsule TAKE 1 CAPSULE BY MOUTH DAILY 90 capsule 5 Active ibuprofen (ADVIL,MOTRIN) 800 mg tablet TAKE 1 TABLET BY MOUTH EVERY 8 HOURS NEEDED FOR PAIN 90 tablet 5 Active Active Problems Problem Noted Date Diagnosed Date COPD (chronic obstructive pu lmonary disease) ([facility] V24, [facility] V28) 11/29/2023 Type 2 diabetes mellitus wit hout complication, without long-term current use of insulin ([facility] V24, [facility] V28) 07/23/2023 Prostate cancer ([facility] V24, [facility] V28) 11/17 Overview (03/26/2024): grade group 2 radiation tx [...] Date Site/Laterality Comments OTHER SURGICAL HISTORY PROCEDURE: OH I&D DEEP ABSC/HMTMA SOFT TISSUE NECK/THORAX; COMMENT: [...] Care Team (Late st Contact Info) Description 01/20/2025 2:30 PM EDT Office Visit Adult Medicine [facility] [address] [place] [id number] Robi Burks PA [address] [place] [address] Health Maintenance Due Date Last Done Comments RSV Immunization Adult Patients (1 - Risk 60-74 years 1-dose series) 2009 COVID-19 Vaccine (3 - Pfizer risk series) 11/09/2020 10/12/2020, 09/20/2020 Social Influencers of Health Screening 04/22/2022 Zoster Vaccines (2 of 2) 08/03/2022 06/08/2022 Diabetes: Annual Retina Eye Exam 07/12/2024 07/13/2023 Diabetes: Blood Sugar Control Test (HGBA1C) 08/03/2024 02/04/2024, 02/04/2024 DTaP,Tdap,and Td Vaccines (2 - Td or Tdap) 10/27/2024 10/27/2014 Influenza Vaccine (#1) 2025 , 02/13/2022, 03/16/2021, Additional history exists Depression Screening 02/03/2025 02/04/2024 Diabetes: Annual Urine Albumin-Creatinine Ratio (uACR) 02/03/2025 02/04/2024 Diabetes: Annual Foot Exam 02/03/2025 02/04/2024 Diabetes: Annual GFR (Glomerular Filtration Rate) 02/03/2025 02/04/2024, 02/04/2024 Falls Risk Assessment 02/03/2025 02/04/2024 Hypertension/CHF/CAD Annual BMP Blood Test 02/03/2025 02/04/2024, 02/04/2024 Medicare Annual Wellness Visit 02/03/2025 02/04/2024 Cholesterol Screening (Lipid Panel) 02/03/2029 02/04/2024, 02/04/2024 Colorectal Cancer Screening: Colonoscopy 07/12/2032 07/12/2022 Hepatitis C Screening Completed 08/03/2014 Pneumococcal Vaccine: 50+ Years Completed 03/16/2021, 02/23/2016, 10/27/2014 HIB Vaccines Aged Out No longer eligi [...] age to complete this topic Meningococcal B Vaccine Aged Out No l onger eligible based on patient's age to complete [...] Results * Urine Albumin Creatinine Ratio (02/04/2024) Pathologist [facility] Urine Albumin Creatinine Ratio Abstracted Result [facility] Provider HEALTH MAINTENANCE Final Result * Annual BMP Blood Test (02/04/2024) Pathologist [facility] Annual BMP Blood Test Abstracted Result [facility] HEALTH MAINTENANCE Final Result * Falls Risk Assessment (02/04/2024) [facility] Falls Risk Assessment Abstracted Result [facility] Provider HEALTH MAINTENANCE Final Result * Depression Screening (02/04/2024) Pathologist [facility] Depression Screening Abstracted Result [facility] Provider HEALTH MAINTENANCE Final Result * Diabetes Foot Exam (02/04/2024) Pathologist [facility] Diabetes: Annual Foot Exam Abstracted Result [facility] Provider HEALTH MAINTENANCE Final Result * Hemoglobin A1c (02/04/2024) [facility] Hemoglobin A1C 6.1 <=6.5 % Blood Venous blood specimen / Unknown Result [facility] Provider LAB BLOOD ORDERABLES Laura l Result * Lipid panel (02/04/2024) [facility] LDL/HDL Ratio 3 0 - 4 Triglycerides 103 0 - 150 mg/dL Cholesterol 169 0 - 200 mg/dL HDL 62 >=40 mg/dL LDL Cholesterol 87 0 - 100 mg/dL Blood Venous blood specimen / Unknown Result [facility] Provider LAB BLOOD ORDERABLES Laura l Result * Diabetes Eye Exam (07/13/2023) Pathologist [facility] Diabetes: Annual Retina Eye Exam Abstracted Historical Provider HEALTH MAINTENANCE Final Result * Colonoscopy (07/12/2022) [facility] Colonoscopy No Interpretation , Abstracted Anatomical Region Laterality Modality Other [facility] Provider HEALTH MAINTENANCE Final Result * Hepatitis C Screening (08/03/2014) Pathologist [facility] Hepatitis C Screening Abstracted [facility] Provider HEALTH MAINTENANCE Final Result from Last 3 Months or Most Recently Relevant to Health Maintenance Insurance [employer] Member Subscriber Plan / Payer (Ef fective 2020-Present) Name:Santos Coleman Relation to Subscriber:Self Name:Santos Coleman Payer ID:[id number] Group ID:[id number] Type:Not on file Address: [place] [address] [address] [id number] Care Teams Lease Administration Analyst Relationship Specialty Start Date End Date Robi Burks PA PCP - General Internal Medicine 02/03/20
== END 2024-11-18 14:39 | disposition home or self-care (01) ==
LOC: HO.HPS 13:48
PROVIDERS: PCP Physician Assistant Medical; Visit Provider Internal Medicine
DX: J44.9 Chronic obstructive pulmonary disease, unspecified (principal); R05.9 Cough, unspecified; J30.9 Allergic rhinitis, unspecified
CPT/HCPCS: 99213

== ENCOUNTER → 2024-11-18 13:48 | Outpatient (BNVA) | payer OTHER, SELFPAY | PROVIDERS: PCP Physician Assistant Medical; Visit Provider Internal Medicine | DX: J44.1 Chronic obstructive pulmonary disease with (acute) exacerbation (principal); J30.9 Allergic rhinitis, unspecified; R05.9 Cough, unspecified | CPT/HCPCS: 99212 ==

== ENCOUNTER 2025-03-19 13:47 | Outpatient (AMB) | payer OTHER, SELFPAY ==
--- OUTSIDE RECORDS SUMMARY | 2023-03-05 09:30 | XMS_ITS | Continuity of Care Document ---
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 Artist Name Role Phone Solomon BLACK FACS RVT Melinda RODRIGUEZ Unavailable Unavailable Procedures Procedure Date Duplex Scan-extrem Veins; Uni/ Endovenous Laser, 1st Vein Offic/outpt E&m Estab 5 Min Trial - Tele medicine Duplex Scan-extrem Veins; Comp Offic Cons New/estab Mod-hi 60 Advance Directives Directive Yes / No Effective Date File Name No Information Encounters Encounter Description Practice Location Reason(s) For Visit Diagnoses Date Provider Providers Copied on Encounter [facility], [address] [place] [address] [address]E[place], [id number], [place] tel:[phone] R - [place] Encounter for follow-up examination after completed treatment for conditions other than malignant ne 3 Solomon BLACK FACS RVT JENNIFER Parker. [address] [facility], [place] [address], [place], [address], [place]. tel:[phone] Referring Provider: Robi Elam, [address] [place] [address], [address]. tel:[phone] [facility], [address] [place] [address] [address]E[place], [id number], [place] tel:[phone] CVR - [facility] Chronic venous hypertension (idiopathic) with inflammation of left lower extremity Oct- 3 Gato BLACK, RVT, JENNIFER Jansen. [address] [place] [address], [place], [place], [id number] , [place]. tel:[phone] Referring Provider: Robi Elam, [address] [place] [address], [address]. tel:[phone] Offic/outpt E&m Estab 5 Min Trial - Telemedicine [facility], [address] [place] [address] [address]Emy [place], [id number], [place] tel:[phone] CVR - [facility] Chronic venous htn w oth comp of bilateral low extrm Sep-0 3 Solomon BLACK FACS RVT JENNIFER Parker. [address] [place] [address], [place], [address], [place]. tel:[phone] Referring Provider: Robi Elam, [address] [place] [address], [address]. tel:[phone] [facility], [address] [place] [address] Dr [address]my [place], [id number], [place] tel:[phone] CVR - [facility] Chronic venous htn w oth comp of bilateral low extrm Johnson- 3 Solomon BLACK FACS RVT JENNIFER Parker. [address] [place] [address], [place], [address], [place]. tel:[phone] Referring Provider: Robi Elam, [address] [place] [address], [address]. 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 [address] [facility], [address], [place], [address], [place]. tel:[phone] Referring Provider: Robi Elam, [address] [place] [address], [place], [address]. tel:[phone] Family History Family Member Type Diagnosis Age At Onset No Information Payers Payer name Insurance type Covered constitution party ID Authorrubya maricarmen(s) [facility] CI [id number] Social History Type Description Quantity Date Captured Comments Sex Male Smoking Status No Information Chief Complaint And Reason For Visit No Information Reason For Referral Reason For Referral No Information Plan Of Treatment Date Type Action Status Goal Diet education completed Goal Diet education completed Referral Ordered: Weight management: Referral to physician timeframe: 3 Months (related to Body mass index (BMI) 27.0-27.9, adult) ordered Referral Ordered: Robi MORIN timeframe: 3 Months (related to Essential (primary) hypertension) ordered History Of Present Illness Encounter Date Complaint History Of Prese nt Illness No Information Functional Status Date Functional Assessmen t No Information Instructions Date Instruction Additional Infor mation Patient education booklet given Related to Chrn Vns Hyprtnsn w/Compl (Pain Edema Swelling); BILAT Patient education booklet given Related to 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 Pre and post instruc tions reviewed and provided Related to 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
[2025-03-19 13:52] VITALS: BP 140/70; PULSE 79; O2SAT 98; BMI 27.7
--- NOTE | 2025-03-19 13:52 | MHC.OFFVIS ---
Vital Signs 03/19/25 13:52 Height 5 ft 1 in Weight 146 lb 9.718 oz BMI 27.7 BP 140/70 H Blood Pressure Location Lt brachial Position Sitting Pulse 79 Pulse Source Pulse Oximeter Pulse Oximetry (%) 98 Oxygen Delivery Method Room Air Intake Visit Reasons: copd Intake Note: pt is here for follow up and states everything is fine. [employer] Traffic [employer] Equipment Repairer Required: No Mechanics Supervisor: Mechanics Supervisor offered & declined Allergies morphine Allergy (Severe, Verified 03/19/25 14:07) tachycardia acetaminophen (Percocet) Allergy (Unknown, Verified 03/19/25 14:07) Unknown codeine (Tylenol-Codeine) Allergy (Unknown, Verified 03/19/25 14:07) Unknown oxycodone (Percocet) Allergy (Unknown, Verified 03/19/25 14:07) Unknown penicillin V Allergy (Unknown, Verified 03/19/25 14:07) Unknown diphenhydramine (From Benadryl) Adverse Reaction (Verified 03/19/25 14:07) Cough Medication List - Last Reconciled 03/19/25 by Nkechi Hickey MD albuterol sulfate 2.5 mg (3 mL) inhalation Q4-6H PRN albuterol sulfate 90 mcg/actuation 2 puffs inhalation Q6H PRN atorvastatin 20 mg PO DAILY diltiazem HCl CD 120 mg PO DAILY fluticasone propion-salmeterol 250-50 mcg/dose 1 ea PO BID ibuprofen 800 mg PO .prn loratadine 10 mg PO DAILY montelukast 10 mg PO BEDTIME nebulizers As directed omeprazole 20 mg PO DAILY prednisone 20 mg PO BID PRN Do you need a note to return to daycare/school/sports/work: No HPI HPI copd: Details: Santos is here for his routine follow-up visit. He has been doing well, had just 1 acute exacerbation 3 months ago which he treated at home with a course of prednisone. Continues to use his Wixela twice a day and albuterol p.r.n.. Luckily he has had no respiratory infection. He say is he came for his scheduled visit otherwise he is feeling fine. He does want to have prednisone on hand. [facility] Medical History Laryngitis COPD exacerbation [id number] condition COVID-19 Cough Allergic rhinitis COPD (chronic obstructive pulmonary disease) Social History Alcohol intake: current Alcohol intake frequency: holidays/special occasions only Patient Tobacco Use Status: Never used Tobacco Review of Systems Const All systems reviewed & are unremarkable except as noted in HPI and below Eyes Reports no additional complaints ENT Reports no additional complaints Card Denies chest pain, Denies irregular heart rhythm and Denies leg edema Resp Reports as per HPI, Reports cough and Reports wheezing GI Reports heartburn (Controlled with omeprazole) Reports no additional complaints Musc Reports no additional complaints Skin/Breast Reports system reviewed and no additional complaints, except as documented Neuro Reports no additional complaints Psych Reports no additional complaints Endo Reports no additional complaints Aller/Immun Reports wheezing Physical Exam Vital Signs: Last Vital Signs Pulse 79 03/19/25 13:52 BP 140/70 H 03/19/25 13:52 Pulse Ox 98 03/19/25 13:52 Oxygen Delivery Method Room Air 03/19/25 13:52 BMI result Body Mass Index 27.7 His voice is hoarse., otherwise he looks stable and as usual. Const General: comfortable, no acute distress, alert and awake Orientation/consciousness: patient oriented x3 HEENT Head: Yes normal to inspection General nose exam: No nasal polyps present and No nasal discharge present Face and sinus: Yes sinuses nontender Mouth: oropharynx normal (Throat is very clear.) Throat: Yes posterior oropharynx normal Eyes General: appearance normal, both eyes and all related structures Neck Neck: Yes normal visual inspection, Yes no lymphadenopathy, Yes trachea midline and Yes no JVD Thyroid: Thyroid normal Chest Chest palpation & inspection: normal inspection of the chest, normal palpation of entire chest wall and no tenderness Resp Other: His chest examination shows increased AP diameter. Percussion note is slightly hyper-resonant. Breath sounds are distant with prolonged expiratory phase. No wheezes or crepitations are heard today. And there was no cough during deep inspirations. Cardio Palpation: normal PMI Rate: regular rate Rhythm: regular rhythm Heart sounds: no gallops and no murmurs GI Palpation (GI): Soft to palpation, nontender, No hepatosplenomegaly present and no masses Auscultation: normal bowel sounds Back/Spine/Pelvis Thoracic/Lumbar Spine: thoracic and lumbar spine normal to inspection Skin General skin exam: no rashes or lesions noted Neuro General: patient oriented x3 and no focal motor deficits Cranial nerves: Yes CN's II-XII intact bilaterally Extrem General: Yes normal to inspection, Yes no clubbing, cyanosis or edema and Yes no calf tenderness Psych Appearance: grossly normal and well kempt Speech and movement: Normal speech and movement present Assessment & Plan Assessment & Plan (1) COPD (chronic obstructive pulmonary disease): Comment: PATIENT DOES HAVE MODERATELY SEVERE CHRONIC OBSTRUCTIVE PULMONARY DISEASE. HE IS PRONE TO HAVE FREQUENT EXACERBATIONS AND RESPONDS TO ORAL PREDNISONE VERY QUICKLY. AT THIS TIME COPD IS WELL CONTROLLED AND HE IS STABLE. Code(s): J44.9 - Chronic obstructive pulmonary disease, unspecified Category: Medical Plan: Continue to use Wixela 250-51 inhalation b.i.d.. Albuterol solution 2.5 mg in the nebulizer Q 4-6 hours p.r.n. when at home. Albuterol HFA 2 puffs Q 4-6 hours p.r.n. when outdoors. He will have prednisone 20 mg b.i.d. for 5 days on hand at home to use only for acute exacerbation. (2) Allergic rhinitis: Comment: ALLERGIC RHINITIS, CHRONIC, REMAINS CONTROLLED. Code(s): J30.9 - Allergic rhinitis, unspecified Category: Medical Plan: continue to use loratadine 10 mg once a day PRN Medications: Changed From prednisone 20 mg PO BID PRN COPD EXCERBATION To prednisone 20 mg PO BID PRN 10 tabs 1RF COPD EXCERBATION 5 days Coding Level of Care Code Est Pt Level 3 (66918) Diagnoses COPD (chronic obstructive pulmonary disease) J44.9 Allergic rhinitis J30.9
--- OUTSIDE RECORDS SUMMARY | 2025-03-19 16:47 | XMS_ITS | Clinical Summary ---
Author Organization [facility] [address] [place] [address] [place], [place] [address]y CARMITA Kumar [phone] Phone Care Team Providers Care Drop Wirer Name Role Phone Robi Burks Primary Care Provider [phone] Allergies Active Allergy Reactions Criticality Noted Date [...] FOR SHORTNESS OF BREATH OR WHEEZING Active montelukast (SINGULAIR) 10 mg tablet Take 1 tablet (10 mg total) by mouth at bedtime. at bedtime. Active ipratropium-al buteroL (DUONEB) 0.5-2.5 mg/3 mL nebulizer solution Inhale 3 mL into the lungs 4 times daily as needed for Other (asthma, wheeze). 4 Active LORazepam (ATIVAN) 0.5 mg tablet Take 1-2 Tabs by mouth as needed (prior to dental appointment). Take 1 tablet as needed for anxiety/panic symptoms 0 Active omeprazole (PriLOSEC) [address] capsule TAKE 1 CAPSULE BY MOUTH DAILY 30 capsule 5 Active ibuprofen (ADVIL,MOTRIN) 800 mg tablet TAKE 1 TABLET BY MOUTH EVERY 8 HOURS NEEDED FOR PAIN 90 tablet 5 Active metFORMIN (GLUCOPHAGE) 500 mg tablet TAKE 1 TABLET BY MOUTH DAILY WITH BREAKFAST FOR BLOOD SUGAR 90 tablet 5 Active dilTIAZem CD (CARDIZEM CD) 120 mg 24 hr capsule TAKE 1 CAPSULE BY MOUTH DAILY 90 capsule 5 Active fluticasone-sa lmeterol (ADVAIR DISKUS) 250-50 mcg/dose diskus inhaler Inhale 1 puff by mouth 2 (two) times a day. Rinse mouth with water after use to reduce aftertaste and incidence of candidiasis. Do not swallow. Active fluticasone propion-salmet Shena (ADVAIR DISKUS) 100-50 mcg/dose diskus inhaler Inhale by mouth. 02/20/20 25 Discontinu ed(Therapy completed) fluticasone propion-salmet Shena (ADVAIR DISKUS) 500-50 mcg/dose diskus inhaler Inhale 1 puff by mouth 2 (two) times a day. 9 02/20/20 25 Discontinu ed(Therapy completed) Daily Fiber, psyllium-aspar t, 3.4 gram packet Take 1 packet by mouth 1 (one) time each day. 4 02/20/20 25 Discontinu ed(Therapy completed) predniSONE (DELTASONE) 20 mg tablet if needed. 5 02/20/20 25 Discontinu ed(Therapy completed) Active Problems Problem Noted Date Diagnosed Date COPD (chronic obstructive pu lmonary disease) ([facility] V24, [facility] V28) 11/29/2023 Type 2 diabetes mellitus wit hout complication, without long-term current use of insulin ([facility] V24, [facility] V28) 07/23/2023 Prostate cancer ([facility] V24, [facility] V28) 11/17 Overview (03/26/2024): grade group 2 radiation tx 2022 History of 2019 novel coronavirus disease (COVID -19) 03/16/2021 Contusion of right calf 11/25/2019 Elevated PSA 12/21/2017 Essential hypertension 02/23/2016 Gastroesophageal reflux disease without esophagi tis 03/04/2015 Hyperlipidemia 08/04/2014 Asthma 05/11/2014 Overview (03/26/2024): eval Dr brad dasilva Elevated Ig E Dx is allergic asthma Encounters Date Type Department Care Team Description 02/19/2025 12:45 PM EDT Office Visit Adult Medicine [address] [address] Yolanda Schneider PA Essential hypertension (Primary Dx); Pure hypercholesterolemia; Type 2 diabetes mellitus without complication, without long-term current use of insulin ([facility] V24, [facility] V28); Moderate persistent asthma without complication; Gastroesophageal reflux disease without esophagitis; Prostate cancer ([facility] V24, [facility] V28); Need for prophylactic vaccination and inoculation against influenza from Last 3 Months Immunizations Immunization Administration Dates Next Due Influenza Quadravalent, MDCK , 0.5ml, preservative free (Flucelvax) 6mo and older 06/18/2019 Influenza trivalent, 0.5mL ( Fluad) 65yo and older 02/19/2025,02/04/2024,02/13/2022,03/16,01/24/2017,02/23/2016 Influenza trivalent, 0.5mL, preservative free (Fluarix; FluLaval; [...] Date Site/Laterality Comments OTHER SURGICAL HISTORY PROCEDURE: AR I&D DEEP ABSC/HMTMA SOFT TISSUE NECK/THORAX; COMMENT: [...] Date Smoking Tobacco: Never Smokeless Tobacco: Never Tobacco Cessation:Counseling Given: Not Answered Alcohol Use Standard Drinks/Week Comments No 0 (1 standard drink = 0.6 oz pur e alcohol) Housing Instability Answer Date Recorde d Are you worried that in the next 2 months you may not have stable housing? No 02/19/2025 Food Access & Nutrition Answer Date Rec orded Do you have access to a vari ety of food including fruits and vegetables? Yes 02/19/2025 Health Literacy Answer Date Recorded How often do you need to hav e someone help you when you read instructions, pamphlets, or other written material from your doctor or pharmacy? Never 02/19/2025 Caregiver: How often do you need to have someone help you when you read instructions, pamphlets, or other written material from your doctor or pharmacy? Not on file 02/19/2025 Financial Risk Answer Date Recorded How hard is it for you to pa y for the very basics like food, housing, medical care, and air conditioning / heating? Not very hard 02/19/2025 Transportation Answer Date Recorded Has the lack of transportati on kept you from meetings, work, or from getting things needed for daily living? No Has the lack of transportati on kept you from medical appointments or from getting medications? No 02/19/2025 Social Isolation Answer Date Recorded How often do you feel lonely or isolated from th ose around you? Never 02/19/2025 Food Risk Answer Date Recorded Within the past 12 months we worried whether our food would run out before we got money to buy more. Never true 02/19/2025 Within the past 12 months th e food we bought just didn't last and we didn't have money to get more. Never true 02/19/2025 Dependent Care Answer Date Recorded Do you need help finding or paying for care for your loved ones. For example, children's zoo caretaker or elderly care for an older adult? No 02/19/2025 Education Answer Date Recorded Do you think completing more education or training, like finishing a GED, going to college, or learning a trade, would be helpful for you? Patient declined 02/19/2025 Employment and Income Answer Date Recor ded During the last four weeks, have you been actively looking for work? No 02/19/2025 Living Situation Answer Date Recorded What is your living situation? Unrecognized valu e 02/19/2025 Sex and Gender Information Value Date Recorded Sex Assigned at Not on file Legal Sex Male 8:27 AM EST Gender Identity Not on file Sexual Orientation Not on file Obstetrics History Last Filed Vital Signs Vital Sign Reading Time Taken Comments Blood Pressure 149/72 02/19/2025 12:59 PM EDT avg provider will recheck Pulse 73 02/19/2025 12:48 PM EDT Temperature 36.9 C (98.5 F) 02/19/2025 12:48 PM EDT Respiratory Rate 16 02/19/2025 12:4 8 PM EDT Oxygen Saturation 97% 02/19/2025 12: 48 PM EDT Inhaled Oxygen Concentration - - Weight 65.8 kg (145 lb) 02/19/2025 12:4 8 PM EDT Height 154.9 cm (5' 1 ) 02/19/2025 12:4 8 PM EDT Body Mass Index 27.4 02/19/2025 12:48 PM EDT Plan of Treatment Upcoming Encounters Date Type Department Care Team (Late st Contact Info) Description 03/23/2025 10:30 AM EST Office Visit Adult Medicine [id number] [place] [address] Yolanda Schneiedr PA [address] [place] [address] Health Maintenance Due Date Last Done Comments Zoster Vaccines (2 of 2) 08/03/2022 06/08/2022 Diabetes: Annual Retina Eye Exam 07/12/2024 07/13/2023 Diabetes: Blood Sugar Control Test (HGBA1C) 08/03/2024 02/04/2024, 02/04/2024 DTaP,Tdap,and Td Vaccines (2 - Td or Tdap) 10/27/2024 10/27/2014 RSV Immunization Adult Patients (1 - 1-dose 75+ series) 2024 COVID-19 Vaccine ( - season) 2025 04/14/2021, 10/12/2020, 09/20/2020 Diabetes: Annual Urine Albumin-Creatinine Ratio (uACR) 02/03/2025 02/04/2024 Diabetes: Annual GFR (Glomerular Filtration Rate) 02/03/2025 02/04/2024, 02/04/2024 Hypertension/CHF/CAD Annual BMP Blood Test 02/03/2025 02/04/2024, 02/04/2024 Medicare Annual Wellness Visit 02/03/2025 02/04/2024 Diabetes: Annual Foot Exam 02/19/2026 02/19/2025, Falls Risk Assessment 02/19/2026 02/19/2025, 024 Social Influencers of Health Screening 02/19/2026 02/19/2025 Cholesterol Screening (Lipid Panel) 02/03/2029 02/04/2024, 02/04/2024 Colorectal Cancer Screening: Colonoscopy 07/12/2032 07/12/2022 Hepatitis C Screening Completed 08/03/2014 Pneumococcal Vaccine: 50+ Years Completed 03/16/2021, 02/23/2016, 10/27/2014 Depression Screening Completed 02/19/2025, 02/04/20 24 Influenza Vaccine Completed 02/19/2025, , 02/13/2022, Additional history exists HIB Vaccines Aged Out [...] Results * Urine Albumin Creatinine Ratio (02/04/2024) Urine Albumin Creatinine Ratio Abstracted Historical Provider HEALTH MAINTENANCE Final Result * Annual BMP Blood Test (02/04/2024) Annual BMP Blood Test Abstracted Historical Provider HEALTH MAINTENANCE Final Result * Falls Risk Assessment (02/04/2024) [facility] Falls Risk Assessment Abstracted Result [facility], [facility] HEALTH MAINTENANCE Final Result * Depression Screening (02/04/2024) [facility] Depression Screening Abstracted Result [facility], [facility]1983 HEALTH MAINTENANCE Final Result * Diabetes Foot Exam (02/04/2024) [facility] Diabetes: Annual Foot Exam Abstracted Result [facility], [facility]1983 HEALTH MAINTENANCE Final Result * Hemoglobin A1c (02/04/2024) [facility] Hemoglobin A1C 6.1 <=6.5 % Blood Venous blood specimen / Unknown Result [facility], [facility]–1983 LAB BLOOD ORDERABLES Laura l Result * Lipid panel (02/04/2024) [facility] LDL/HDL Ratio 3 0 - 4 Triglycerides 103 0 - 150 mg/dL Cholesterol 169 0 - 200 mg/dL HDL 62 >=40 mg/dL LDL Cholesterol 87 0 - 100 mg/dL Blood Venous blood specimen / Unknown Result [facility], [facility]–1983 LAB BLOOD ORDERABLES Laura l Result * Diabetes Eye Exam (07/13/2023) [facility] Diabetes: Annual Retina Eye Exam Abstracted Result [facility], [facility] HEALTH MAINTENANCE Final Result * Colonoscopy (07/12/2022) [facility] Colonoscopy No Interpretation , Abstracted Anatomical Region Laterality Modality Other Result [facility], [facility] HEALTH MAINTENANCE Final Result * Hepatitis C Screening (08/03/2014) [facility] Hepatitis C Screening Abstracted Result [facility], [facility] HEALTH MAINTENANCE Final Result from Last 3 Months or Most Recently Relevant to Health Maintenance Insurance [employer] MED[employer] Member Subscriber Plan / Payer (Ef fective 2020-Present) Name:Santos Coleman Relation to Subscriber:Self Name:Santos Coleman Payer ID:[id number] Group ID:[id number] Type:Not on file Address: [place] [address] [address] [phone] Care Teams Drop Wirer Relationship Specialty Start Date End Date Robi Burks PA [address] [place] [address] [place] [address] PCP - General Internal Medicine 02/03/20
== END 2025-03-19 14:12 | disposition home or self-care (01) ==
LOC: HO.HPS 13:48
PROVIDERS: PCP Physician Assistant Medical; Visit Provider Internal Medicine
DX: J44.9 Chronic obstructive pulmonary disease, unspecified (principal); J30.9 Allergic rhinitis, unspecified
CPT/HCPCS: 99213

== ENCOUNTER → 2025-03-19 13:47 | Outpatient (BNVA) | payer OTHER, SELFPAY | PROVIDERS: PCP Physician Assistant Medical; Visit Provider Internal Medicine | DX: J30.9 Allergic rhinitis, unspecified (principal); J44.9 Chronic obstructive pulmonary disease, unspecified | CPT/HCPCS: 99212 ==